=== PATIENT | male | born 1955 | race Caucasian/White ===

== ENCOUNTER 2016-03-23 18:27 | Emergency (ER) | payer OTHER ==
[~2016-03-23] VITALS: Ht 182.9 cm; Wt 95.2 kg
[~2016-03-23 18:27] MED LIST: ALL300 PO; CRDCD120 PO; IBUP-1459 PO; OXYC1TAB3 PO; TELM80TA PO
[2016-03-23 18:37] VITALS: BP 162/85; PULSE 81; TEMP 36.9; O2SAT 94; Ht 182.9 cm; Wt 95.2 kg
[2016-03-23] MEDS ORDERED: PROPARACAINE HCL 0.5% OP SOLN 15 ML BTL ONE (18:44)
[2016-03-23] MEDS ORDERED: PRS5 PO (18:48)
[2016-03-23] MEDS ORDERED: DILT240C48 PO (18:48)
[2016-03-23] MEDS ORDERED: DIPHTHERIA/TETANUS/PERTUSSIS 0.5 ML SYR/VIAL IM. ONE (19:15)
[2016-03-23] MEDS ORDERED: ERYTHROMYCIN OP OINT 5 MG/GM 3.5 GM TUBE OP STA (19:46)
[2016-03-23] MEDS ORDERED: OXYC1TAB3 PO (19:50)
--- NOTE | 2016-03-23 19:50 | EMERGENCY ROOM VISIT NOTE ---
ED Visit Note First contact with patient: 19:03 CHIEF COMPLAINT: Eye pain HISTORY OF PRESENT ILLNESS: This 60-year-old male patient presents to the emergency department ambulatory complaining of pain in the right eye after getting a piece of sawdust in it around 3 PM today. There has been a constant moderate pain and irritation, redness and tearing in the eye. There is a mild blurring of vision at times and light bothers the eye. The vision has not been decreased over all. The patient does not wear contacts. The patient rates the pain as irritating and 10/10. The patient has tried to flush the eye. The patient has not had previous injuries to this eye. His tetanus is not up-to- date REVIEW OF SYSTEMS: A 6 system review of systems was completed with positives and pertinent negatives listed in the HPI. ALLERGIES: Acetaminophen MEDICATIONS: Allopurinol, finasteride, diltiazem PMH: Hypertension, gout SOCIAL HISTORY: The patient does not smoke. 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 PHYSICAL EXAM: Vital Signs: Reviewed Nurse's notes, vital signs stable. Visual acuity 20/25 in the right and 20/15 in the left. GENERAL: This is a 60-year- old male, in no acute distress, but who is uncomfortable from the eye problem. Well-developed well-nourished. EYES: The pupils are equal round and reactive to light and accommodation. EOMs are full and without tenderness. There is discharge of clear tears from the right eye which is injected. There is no foreign body visible under the eyelid even after lid eversion. Funduscopic exam reveals no hemorrhages, papilledema, or other abnormalities. No foreign body was seen embedded in the cornea under slit lamp exam. The cornea was clear and no hyphema was seen. Fluorescein uptake was observed with ultraviolet light and reveals a corneal abrasion at approximately 1:00. EMERGENCY DEPARTMENT COURSE: I examined the patient. Alcaine 2 drops were placed in the patient's right eye. A slit lamp exam was performed as above. Erythromycin ointment was placed in the patient's right eye. He was given a take-home pack of OxyIR as well as a prescription. The patient was discharged home in good condition. DIAGNOSIS: Corneal abrasion of the right eye DISCHARGE INSTRUCTIONS AND TREATMENT: Use erythromycin ointment 1/4 cm ribbon to the lower eyelid every 6 hours for 3-5 days. Use Ibuprofen 600 mg every 6 hrs as needed for moderate pain. Oxy IR 1-2 tablets every 4-6 hrs as needed for worse pain. No driving or alcohol use with Oxy IR. Return to the ED or see your eye doctor in 24-48 hours for a recheck. Return to the ED for increasing pain or changes in vision. Problem List Medical Problems: (1) HTN (hypertension) Status: Chronic Surgical Problems: (1) H/O shoulder surgery Status: Resolved Current/Historical Medications Scheduled Allopurinol (Allopurinol), 150 MG PO QAM Diltiazem Hcl Coated Beads (Cartia Xt), 240 MG PO QAM Finasteride (Finasteride), 5 MG PO DAILY Telmisartan (Micardis), 80 MG PO QAM Scheduled PRN Oxycodone Ir (Roxicodone Ir), 1-2 TAB PO Q4H PRN for Pain Allergies Coded Allergies: Acetaminophen (Verified Adverse Reaction, Unknown, GOUT, 03/23/16) Vital Signs Date Time Temp Pulse Resp B/P Pulse Ox O2 Delivery O2 Flow Rate FiO2 03/23/16 18:37 36.9 81 18 162/85 94 Room Air Medications Administered Medications (Trade) Dose Ordered Sig/Jill Route Start Time Stop Time Status Last Admin Dose Admin Proparacaine HCl (Alcaine 0.5% Oph Soln) 225 drops STK-MED ONCE .ROUTE 03/23/16 18:44 03/23/16 18:45 DC 03/23/16 18:48 225 DROPS Diphtheria/ Pertussis/Tetanus Vacc (Adacel Inj) 0.5 ml ONCE ONCE IM. 03/23/16 19:15 03/23/16 19:16 DC 03/23/16 19:39 0.5 ML Erythromycin (Erythromycin Oph Oint) 1 appln TID STAT OP 03/23/16 19:46 03/23/16 19:48 DC 03/23/16 20:06 1 APPLN Oxycodone HCl (Roxicodone Immediate Rel 5MG Home Pack) 1 homepack UD ONCE PO 03/23/16 20:00 03/23/16 20:01 DC 03/23/16 20:06 1 HOMEPACK Departure Information Impression Primary Impression: Corneal abrasion Dispostion Home / Self-Care Condition GOOD Prescriptions Oxycodone Ir (Roxicodone Ir) 5 Mg Tab 1-2 TAB PO Q4H Y for Pain, #20 TAB For Initial Treatment Prov: Archana Bray PA-C 03/23/16 Referrals Claudy Bui D.O. (PCP) Maikel Figueroa D.O. Patient Instructions ED Eye Injury Corneal Abrasion, My [facility] Additional Instructions Use erythromycin ointment 1/4 cm ribbon to the lower eyelid every 6 hours for 3- 5 days. Use Ibuprofen 600 mg every 6 hrs as needed for moderate pain. Oxy IR 1-2 tablets every 4-6 hrs as needed for worse pain. No driving or alcohol use with Oxy IR. Return to the ED or see your eye doctor in 24-48 hours for a recheck. Return to the ED for increasing pain or changes in vision. Problem Qualifiers Primary Impression: Corneal abrasion Encounter type: initial encounter Laterality: right Qualified Codes: S05.01XA - Injury of conjunctiva and corneal abrasion without foreign body, right eye, initial encounter
[2016-03-23] MEDS ORDERED: OXYCODONE IR HOME PACK PO ONE (20:00)
== END 2016-03-23 20:07 | disposition home or self-care (01) ==
LOC: C.EDB 18:28 → C.EDD 20:07
DX: S05.01XA Injury of conjunctiva and corneal abrasion without foreign body, right eye, initial encounter (principal); X58.XXXA Exposure to other specified factors, initial encounter; Z23 Encounter for immunization

== ENCOUNTER → 2016-03-28 | Outpatient (CLI) | payer OTHER ==
[~2016-03-28] MED LIST changes: -CRDCD120 PO; +DILT240C48 PO; -IBUP-1459 PO; +PRS5 PO
== END | disposition home or self-care (01) ==
LOC: C.LAB 12:04
PROVIDERS: ATTEND Urology
DX: N40.0 Benign prostatic hyperplasia without lower urinary tract symptoms (principal)

== ENCOUNTER → 2016-05-08 | Outpatient (CLI) | payer OTHER ==
--- NOTE | 2016-05-08 17:54 | DIAGNOSTIC IMAGING REPORT ---
CHEST 2 VIEWS ROUTINE CLINICAL HISTORY: COUGH COMPARISON STUDY: 12/12/2014 FINDINGS: The heart is normal in size. There is no failure. There is no lobar consolidation. There are no pleural effusions. There are bibasal interstitial opacities, likely atelectatic, although an inflammatory process cannot be excluded.[ IMPRESSION: 1. Bibasal interstitial opacities 2. No evidence of lobar consolidation. No evidence of failure Electronically signed by: Gustavo Farooq M.D. 05/08/2016 5:52 PM Dictated Date/Time: 05/08/2016 5:51 PM
== END | disposition home or self-care (01) ==
LOC: C.RAD 17:25
PROVIDERS: ATTEND Family Medicine
DX: R05 Cough (principal)

== ENCOUNTER → 2016-05-18 | Outpatient (CLI) | payer OTHER ==
[2016-05-18 12:52] LABS: BASO % 0.3 %; BASO ABS # 0.03 K/uL (0-0.2); COMPLETE YES; EOS % 0.9 %; HEMATOCRIT 44.9 % (42-52); IG% 0.5 %; LYMPH % 16.1 %; LYMPH ABS # 1.56 K/uL (1.2-3.4); MEAN CELL VOLUME 93.5 fL (80-100); MEAN CORPUSCULAR HEMOGLOBIN 32.9 pg (25-34); MEAN CORPUSCULAR HGB CONC 35.2 g/dl (32-36); MEAN PLATELET VOLUME 11.6 fL (7.4-10.4); MONO % 6.8 %; NEUT % 75.4 %; PLATELET COUNT 218 K/uL (130-400); WHITE BLOOD COUNT 9.68 K/uL (4.8-10.8)
[2016-05-18 13:10] LABS: BLOOD UREA NITROGEN 14 mg/dl (7-18); BUN/CREATININE RATIO 11.3 (10-20); CALCIUM 9.9 mg/dl (8.5-10.1); CARBON DIOXIDE 28 mmol/L (21-32); CHLORIDE 103 mmol/L (98-107); GLUCOSE 114 mg/dl (70-99); POTASSIUM 4.2 mmol/L (3.5-5.1); SODIUM 139 mmol/L (136-145)
[2016-05-22 01:36] LABS: BORDETELLA PERTUSSIS SOURCE Nasal Swab
== END | disposition home or self-care (01) ==
LOC: C.LAB 11:23
PROVIDERS: ATTEND Physician Assistant
DX: R05 Cough (principal); R06.02 Shortness of breath

== ENCOUNTER → 2016-05-25 | Outpatient (CLI) | payer OTHER ==
[~2016-05-25] MED LIST changes: +OPTIRAY 320 IV PRN
--- NOTE | 2016-05-25 15:17 | DIAGNOSTIC IMAGING REPORT ---
CHEST CT WITH CONTRAST CT DOSE: 518.38 mGy.cm HISTORY: Cough. Short of breath. TECHNIQUE: Multiaxial CT images of the chest were performed following the intravenous administration of contrast. COMPARISON: Chest 05/08/2016. FINDINGS: No pneumothorax. No pleural effusions. The central airways are patent. A 5 mm indeterminate pulmonary nodule within the right lower lobe in image 198. A few scattered patchy groundglass and linear opacity seen within the lung bases. This nonspecific but favor dependent change/atelectasis. Small scarlike densities within the medial right lower lobe adjacent to the thoracic spine osteophytes. No acute fractures within the visualized osseous structures. Small heterogeneous nodules measuring up to 12 mm within the superior mediastinum immediately inferior to the thyroid gland. These favor thyroid tissue/nodules. Otherwise, no mediastinal or hilar lymphadenopathy. Normal caliber thoracic aorta. Hepatic steatosis. The spleen and adrenal glands are unremarkable. The main pulmonary arteries are patent. The heart is normal in size. IMPRESSION: 1. A few scattered patchy groundglass and linear opacity seen within the lung bases. This favors mild dependent change/atelectasis. A low-grade pneumonitis could also have a similar appearance but is considered less likely. 2. A 5 mm indeterminate pulmonary nodule within the right lower lobe. Please refer to the chart below for recommended follow-up. 3. Small heterogeneous nodules measuring up to 12 mm within the superior mediastinum. These favor residual thyroid tissue/nodules. 4. Hepatic steatosis. Please refer to below summary of Fleischner criteria recommendations for follow-up of incidental CT nodules (Deya Cortes, Guidelines for management of small pulmonary nodules detected on CT scans: A statement from the Fleischner Society, Radiology 237: [phone].) SOLID NODULES Solitary nodule size: <6 mm * low risk patients: no follow-up needed * high risk patients: optional CT at 12 months Solitary nodule size: 6-8 mm * low risk patients: follow-up at 6-12 months, then consider further follow-up at 18-24 months * high risk patients: initial follow-up CT at 6-12 months and then at 18-24 months if no change Solitary nodule size: >8 mm * either low or high risk patients - consider follow-up CT at 3 months, and/or CT-PET, and/or biopsy Multiple nodules size: <6 mm * low risk patients: no routine follow-up * high risk patients: optional CT at 12 months Multiple nodules size: 6-8 mm * low risk patients: follow-up at 3-6 months, then consider further follow-up at 18-24 months * high risk patients: follow-up at 3-6 months, then at 18-24 months if no change Multiple nodules size: >8 mm * low risk patients: follow-up at 3-6 months, then consider further follow-up at 18-24 months * high risk patients: follow-up at 3-6 months, then at 18-24 months if no change Note: newly detected indeterminate nodule in persons 35 years of age or older. * Low risk patients: minimal or absent history of smoking and/or other known risk factors * high risk patients: history of smoking or of other known risk factors (e.g. first degree relative with lung cancer, or exposure to asbestos, radon, uranium) * if a nodule up to 8 mm is partly solid or is ground glass further follow-up is required after 24 months to exclude possible slow growing adenocarcinoma (LAURA) SUBSOLID NODULES Solitary pure ground-glass nodule * nodule size <6 mm - no CT follow-up required * nodule size >=6 mm - follow-up CT at 6-12 months, then every 2 years until 5 years Solitary part-solid nodule * nodule size <6 mm - no CT follow-up required * nodule size >=6 mm - follow-up CT at 3-6 months. If unchanged, and solid component remains <6 mm, then annual follow-up for 5 years Multiple subsolid nodules * nodule size <6 mm - follow-up CT at 3-6 months, consider further follow-up at 2 and 4 years if stable * nodule size >=6 mm - follow-up CT at 3-6 months, subsequent management based on the most suspicious nodule(s) Electronically signed by: Delon Slade M.D. 05/25/2016 3:14 PM Dictated Date/Time: 05/25/2016 3:06 PM
--- NOTE | 2016-05-26 06:56 | PULMONARY FUNCTION TEST ---
SPIROMETRY: Spirometry suggests mild restrictive ventilatory dysfunction with an FVC of 74% predicted. LUNG VOLUMES: Mildly reduced lung volumes with a total lung capacity of 73%. DIFFUSION CAPACITY: Diffusion capacity within normal limits.
== END | disposition home or self-care (01) ==
LOC: C.RC 13:23
PROVIDERS: ATTEND Physician Assistant
DX: R06.02 Shortness of breath (principal); R05 Cough

== ENCOUNTER → 2016-06-06 | Outpatient (CLI) | payer OTHER ==
[~2016-06-06] MED LIST changes: -OPTIRAY 320 IV PRN
[2016-06-06 17:11] LABS: BASO % 0.4 %; BASO ABS # 0.03 K/uL (0-0.2); COMPLETE YES; EOS % 1.3 %; HEMATOCRIT 43.6 % (42-52); IG% 0.3 %; LYMPH % 25.8 %; LYMPH ABS # 1.95 K/uL (1.2-3.4); MEAN CELL VOLUME 96.2 fL (80-100); MEAN CORPUSCULAR HEMOGLOBIN 33.3 pg (25-34); MEAN CORPUSCULAR HGB CONC 34.6 g/dl (32-36); MEAN PLATELET VOLUME 11.3 fL (7.4-10.4); MONO % 8.5 %; NEUT % 63.7 %; PLATELET COUNT 196 K/uL (130-400); RED BLOOD COUNT 4.53 M/uL (4.7-6.1); WHITE BLOOD COUNT 7.55 K/uL (4.8-10.8)
[2016-06-06 17:20] LABS: PARTIAL THROMBOPLASTIN RATIO 1.2; PROTHROMBIN TIME (PATIENT) 11.2 SECONDS (9.0-12.0)
[2016-06-06 17:39] LABS: BLOOD UREA NITROGEN 14 mg/dl (7-18); CALCIUM 9.6 mg/dl (8.5-10.1); CARBON DIOXIDE 29 mmol/L (21-32); CHLORIDE 104 mmol/L (98-107); GLUCOSE 93 mg/dl (70-99); POTASSIUM 4.1 mmol/L (3.5-5.1); SODIUM 140 mmol/L (136-145)
== END | disposition home or self-care (01) ==
LOC: C.LAB 16:27
PROVIDERS: ATTEND Physician Assistant
DX: R06.02 Shortness of breath (principal)

== ENCOUNTER → 2016-06-16 | Outpatient (CLI) | payer OTHER ==
[~2016-06-16] MED LIST changes: +PERFLUTREN LIPID MICROSPHERE (DEFINITY) IV ONE
--- NOTE | 2016-06-16 13:45 | EXERCISE STRESS ECHO ---
*NOTICE TO RECEIVING REPUBLICAN AGENCY This information is strictly Confidential and protected under [place] law. [place] law prohibits you from making any further disclosure of this information unless further disclosure is expressly permitted by the written consent of the person to whom it pertains or is authorized by law. A general authorization for the release of medical or other information is not sufficient for this purpose. Hospital accepts no responsibility if the information is made available to any other person, INCLUDING THE PATIENT. Interpretation Summary * Name: PRESLEY FOSTER Study Date: 06/16/2016 10:16 AM BP: 147/76 mmHg * Patient Location: [facility] HR: 67 * : 1955 (M/d/yyyy) Gender: Male Height: 72 in * Age: 60 yrs Ethnicity: CA Weight: 200 lb * Ordering Physician: Lindsey Penny * Referring Physician: Lindsey Penny PA-C * Performed By: Aury Johnson RDCS * * Reason For Study: Hypertension, chest tightness, dyspnea * BSA: 2.1 m2 * -- Conclusions -- * Left ventricular systolic function is normal. * Grade I diastolic dysfunction, (abnormal relaxation pattern). * Right ventricular systolic pressure is normal. * Diagnostic exercise echocardiogram with symptoms or evidence of ischemia on echocardiographic imaging. * Hypertensive BP response to exercise. Procedure Details * ECHOEX, CPT #00427 * ECHO DOPPLER, CPT #[id number] * ECHO COLOR FLOW, CPT #[id number] * A contrast injection of Definity was performed to improve assessment of LV function. * Contrast was injected into an intravenous site in the left arm. * One vial of Definity ultrasound contrast was diluted in normal saline to a total volume of 10 ml. A total of '4' ml of solution was administered during imaging. * Lot # [id number] of Definity utilized for procedure. * Expiration date JUN 06. * The attending nurse who injected the contrast agent was Cara Fernandes RN. Left Ventricular Findings with Stress * Diagnostic exercise echocardiogram with symptoms or evidence of ischemia on echocardiographic imaging. Hypertensive BP response to exercise. Left Ventricle * The left ventricle is normal in size. * There is normal left ventricular wall thickness. * Ejection Fraction = 60-65%. * Left ventricular systolic function is normal. * Grade I diastolic dysfunction, (abnormal relaxation pattern). * The left ventricular wall motion is normal. Right Ventricle * The right ventricle is normal in size and function. Atria * The left atrial size is normal. * Right atrial size is normal. Mitral Valve * The mitral valve is grossly normal. * There is trace mitral regurgitation. Tricuspid Valve * The tricuspid valve is not well visualized, but is grossly normal. * There is mild tricuspid regurgitation. * Right ventricular systolic pressure is normal. Aortic Valve * The aortic valve is normal in structure and function. * No hemodynamically significant valvular aortic stenosis. * There is no significant aortic regurgitation. Pericardium * There is no pericardial effusion. Stress Parameters * Normal baseline electrocardiogram. * There was a maximum 1mm ST segment depression. * The stress portion of this study was personally supervised by the undersigned interpreting physician. * Rest heart rate was '67' BPM. * Rest blood pressure was '147/76' * Maximum heart rate achieved was 150 bpm. * Maximum heart rate was 93 % of maximum age-predicted heart rate. * Maximum blood pressure was '215/67' * Total exercise time was '8:06' * Maximum exercise MET level achieved was '10.10' METS * Maximum treadmill speed was '3.40' miles per hour. * Maximum treadmill elevation was '14.00'% grade. * Exercise was terminated due to 'achieving target heart rate' Left Ventricular Findings with Stress * The patient developed 1mm of flat/upsloping ST depressiojn at peak heart rate whcih resolved 1-2 minutes in recovery Normal baseline echocardiogram with normal augmentation and no inducible wall motion abnormalities. No symptoms reported. Hypertensive BP response to exercise Lehman treadmill score: 3 (moderate risk) MMode 2D Measurements and Calculations IVSd 1.0 cm LVIDd 4.1 cm LVIDs 2.7 cm LVPWd 0.93 cm IVS/LVPW 1.1 FS 34.7 % EDV(Teich) 74.0 ml ESV(Teich) 26.4 ml EF(Teich) 64.4 % EDV(cubed) 68.7 ml ESV(cubed) 19.1 ml EF(cubed) 72.2 % LV mass(C)d 127.9 grams LV mass(C)dI 60.1 grams/m\S\2 SV(Teich) 47.7 ml SI(Teich) 22.4 ml/m\S\2 SV(cubed) 49.6 ml SI(cubed) 23.3 ml/m\S\2 Ao root diam 3.5 cm Ao root area 9.6 cm\S\2 ACS 1.7 cm LA dimension 3.3 cm asc Aorta Diam 3.1 cm LA/Ao 0.93 LVOT diam 2.0 cm LVOT area 3.3 cm\S\2 LVAd ap4 28.6 cm\S\2 LVLd ap4 8.7 cm EDV(MOD-sp4) 75.6 ml EDV(sp4-el) 80.0 ml LVAs ap4 15.3 cm\S\2 LVLs ap4 6.6 cm ESV(MOD-sp4) 31.4 ml ESV(sp4-el) 30.0 ml EF(MOD-sp4) 58.5 % EF(sp4-el) 62.4 % LVAd ap2 26.4 cm\S\2 LVLd ap2 7.6 cm EDV(MOD-sp2) 75.4 ml EDV(sp2-el) 77.5 ml LVAs ap2 14.2 cm\S\2 LVLs ap2 6.0 cm ESV(MOD-sp2) 29.3 ml ESV(sp2-el) 28.6 ml EF(MOD-sp2) 61.1 % EF(sp2-el) 63.1 % LVLd %diff -13.65 % EDV(MOD-bp) 81.1 ml LVLs %diff -10.44 % ESV(MOD-bp) 31.8 ml EF(MOD-bp) 60.8 % SV(MOD-sp4) 44.2 ml SI(MOD-sp4) 20.7 ml/m\S\2 SV(MOD-sp2) 46.1 ml SI(MOD-sp2) 21.6 ml/m\S\2 SV(MOD-bp) 49.3 ml SI(MOD-bp) 23.2 ml/m\S\2 SV(sp4-el) 49.9 ml SI(sp4-el) 23.4 ml/m\S\2 SV(sp2-el) 48.9 ml SI(sp2-el) 22.9 ml/m\S\2 Doppler Measurements and Calculations MV E max arden 79.5 cm/sec MV A max arden 69.4 cm/sec MV E/A 1.1 MV dec time 0.22 sec Ao V2 max 124.9 cm/sec Ao max PG 6.2 mmHg Ao max PG (full) 0.91 mmHg TARA(V,A) 3.0 cm\S\2 TARA(V,D) 3.0 cm\S\2 LV V1 max PG 5.3 mmHg LV V1 max 115.4 cm/sec PA V2 max 124.9 cm/sec PA max PG 6.2 mmHg PA acc slope 931.2 cm/sec\S\2 PA acc time 0.09 sec TR max arden 219.9 cm/sec PA pr(Accel) 39.4 mmHg
--- NOTE | 2016-06-23 11:51 | EXERCISE STRESS ECHO ---
*NOTICE TO RECEIVING DEMOCRAT AGENCY This information is strictly Confidential and protected under [place] law. [place] law prohibits you from making any further disclosure of this information unless further disclosure is expressly permitted by the written consent of the person to whom it pertains or is authorized by law. A general authorization for the release of medical or other information is not sufficient for this purpose. Hospital accepts no responsibility if the information is made available to any other person, INCLUDING THE PATIENT. Interpretation Summary * Name: PRESLEY FOSTER Study Date: 06/16/2016 10:16 AM BP: 147/76 mmHg * Patient Location: [facility] ([facility] HR: 67 * : 1955 (M/d/yyyy) Gender: Male Height: 72 in * Age: 60 yrs Ethnicity: [place] Weight: 200 lb * Ordering Physician: Lindsey Penny * Referring Physician: Lindsey Penny PA-C * Performed By: Aury Johnson RDCS * * Reason For Study: Hypertension, chest tightness, dyspnea * BSA: 2.1 m2 * -- Conclusions -- * Left ventricular systolic function is normal. * Grade I diastolic dysfunction, (abnormal relaxation pattern). * Right ventricular systolic pressure is normal. * Diagnostic exercise echocardiogram without symptoms or evidence of ischemia on echocardiographic imaging. * Hypertensive BP response to exercise. Procedure Details * ECHOEX, CPT #[id number] * ECHO DOPPLER, CPT #[id number] * ECHO COLOR FLOW, CPT #[id number] * A contrast injection of Definity was performed to improve assessment of LV function. * Contrast was injected into an intravenous site in the left arm. * One vial of Definity ultrasound contrast was diluted in normal saline to a total volume of 10 ml. A total of '4' ml of solution was administered during imaging. * Lot # [id number] of Definity utilized for procedure. * Expiration date JUN 06. * The attending nurse who injected the contrast agent was Cara Fernandes RN. Left Ventricular Findings with Stress * Diagnostic exercise echocardiogram with symptoms or evidence of ischemia on echocardiographic imaging. Hypertensive BP response to exercise. Left Ventricle * The left ventricle is normal in size. * There is normal left ventricular wall thickness. * Ejection Fraction = 60-65%. * Left ventricular systolic function is normal. * Grade I diastolic dysfunction, (abnormal relaxation pattern). * The left ventricular wall motion is normal. Right Ventricle * The right ventricle is normal in size and function. Atria * The left atrial size is normal. * Right atrial size is normal. Mitral Valve * The mitral valve is grossly normal. * There is trace mitral regurgitation. Tricuspid Valve * The tricuspid valve is not well visualized, but is grossly normal. * There is mild tricuspid regurgitation. * Right ventricular systolic pressure is normal. Aortic Valve * The aortic valve is normal in structure and function. * No hemodynamically significant valvular aortic stenosis. * There is no significant aortic regurgitation. Pericardium * There is no pericardial effusion. Stress Parameters * Normal baseline electrocardiogram. * There was a maximum 1mm ST segment depression. * The stress portion of this study was personally supervised by the undersigned interpreting physician. * Rest heart rate was '67' BPM. * Rest blood pressure was '147/76' * Maximum heart rate achieved was 150 bpm. * Maximum heart rate was 93 % of maximum age-predicted heart rate. * Maximum blood pressure was '215/67' * Total exercise time was '8:06' * Maximum exercise MET level achieved was '10.10' METS * Maximum treadmill speed was '3.40' miles per hour. * Maximum treadmill elevation was '14.00'% grade. * Exercise was terminated due to 'achieving target heart rate' Left Ventricular Findings with Stress * The patient developed 1mm of flat/upsloping ST depressiojn at peak heart rate whcih resolved 1-2 minutes in recovery Normal baseline echocardiogram with normal augmentation and no inducible wall motion abnormalities. No symptoms reported. Hypertensive BP response to exercise Lehman treadmill score: 3 (moderate risk) MMode 2D Measurements and Calculations IVSd 1.0 cm LVIDd 4.1 cm LVIDs 2.7 cm LVPWd 0.93 cm IVS/LVPW 1.1 FS 34.7 % EDV(Teich) 74.0 ml ESV(Teich) 26.4 ml EF(Teich) 64.4 % EDV(cubed) 68.7 ml ESV(cubed) 19.1 ml EF(cubed) 72.2 % LV mass(C)d 127.9 grams LV mass(C)dI 60.1 grams/m\S\2 SV(Teich) 47.7 ml SI(Teich) 22.4 ml/m\S\2 SV(cubed) 49.6 ml SI(cubed) 23.3 ml/m\S\2 Ao root diam 3.5 cm Ao root area 9.6 cm\S\2 ACS 1.7 cm LA dimension 3.3 cm asc Aorta Diam 3.1 cm LA/Ao 0.93 LVOT diam 2.0 cm LVOT area 3.3 cm\S\2 LVAd ap4 28.6 cm\S\2 LVLd ap4 8.7 cm EDV(MOD-sp4) 75.6 ml EDV(sp4-el) 80.0 ml LVAs ap4 15.3 cm\S\2 LVLs ap4 6.6 cm ESV(MOD-sp4) 31.4 ml ESV(sp4-el) 30.0 ml EF(MOD-sp4) 58.5 % EF(sp4-el) 62.4 % LVAd ap2 26.4 cm\S\2 LVLd ap2 7.6 cm EDV(MOD-sp2) 75.4 ml EDV(sp2-el) 77.5 ml LVAs ap2 14.2 cm\S\2 LVLs ap2 6.0 cm ESV(MOD-sp2) 29.3 ml ESV(sp2-el) 28.6 ml EF(MOD-sp2) 61.1 % EF(sp2-el) 63.1 % LVLd %diff -13.65 % EDV(MOD-bp) 81.1 ml LVLs %diff -10.44 % ESV(MOD-bp) 31.8 ml EF(MOD-bp) 60.8 % SV(MOD-sp4) 44.2 ml SI(MOD-sp4) 20.7 ml/m\S\2 SV(MOD-sp2) 46.1 ml SI(MOD-sp2) 21.6 ml/m\S\2 SV(MOD-bp) 49.3 ml SI(MOD-bp) 23.2 ml/m\S\2 SV(sp4-el) 49.9 ml SI(sp4-el) 23.4 ml/m\S\2 SV(sp2-el) 48.9 ml SI(sp2-el) 22.9 ml/m\S\2 Doppler Measurements and Calculations MV E max arden 79.5 cm/sec MV A max arden 69.4 cm/sec MV E/A 1.1 MV dec time 0.22 sec Ao V2 max 124.9 cm/sec Ao max PG 6.2 mmHg Ao max PG (full) 0.91 mmHg TARA(V,A) 3.0 cm\S\2 TARA(V,D) 3.0 cm\S\2 LV V1 max PG 5.3 mmHg LV V1 max 115.4 cm/sec PA V2 max 124.9 cm/sec PA max PG 6.2 mmHg PA acc slope 931.2 cm/sec\S\2 PA acc time 0.09 sec TR max arden 219.9 cm/sec PA pr(Accel) 39.4 mmHg
== END | disposition home or self-care (01) ==
LOC: C.CPL 09:57
PROVIDERS: ATTEND Physician Assistant
DX: I10 Essential (primary) hypertension (principal); R06.02 Shortness of breath; R07.89 Other chest pain

== ENCOUNTER 2016-06-20 07:33 | Day surgery (SDC) | payer OTHER ==
[2016-06-20] VITALS (13 sets, daily range): BP systolic 114–142; BP diastolic 71–87; PULSE 52–81; TEMP 36.5; O2SAT 94–99; Ht 182.9 cm; Wt 90.8 kg
[~2016-06-20] VITALS: Ht 182.9 cm; Wt 90.8 kg
--- NOTE | 2016-06-20 05:53 | History and Physical ---
History & Physical Date June 20, 2016. Chief Complaint Chronic Productive Cough History of Present Illness The patient is a 60 year old male with complaints of chronic productive cough: 60-year-old male presents the office to follow-up PFTs and CT for h/o cough and dyspnea s/p fall. Prior records reviewed. PMHx includes: GERD, hyperlipidemia, seasonal allergies, GERD, gout, hypertension, BPH. No significant tobacco use, + h/o second hand exposure. He is intolerant to steroids stating it makes his "heart race". Patient initially seen in the office 04/2016 with symptoms of dyspnea and cough beginning 1-3 after sustaining a fall on ice late 01/2016 sustaining left sided rib fractures (acute dx and treatment in the ER). While his pain resolved, dyspnea, intermittent wheeze and cough developed and progressed - Cough became severe -paroxysmal and intermittently productive of green/yellow mucus. He completed a course of amoxicillin and cefuroxime (04/2016) without improvement. Chest x-ray completed 05/08/2016 per report described bilateral interstitial opacities/nonspecific. 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 Last visit patient was prescribed Qvar 80: 1 puff BID with adherence to PPI. PFTs completed 05/25/[address] Barth (no raw data at this time) : suggestive of mild restrict ventilatory dysfunction with FVC: 74% predicted, mildly reduced lung volumes (T%) an preserved DLCO. CT 05/25/16: 5mm RLL nodule, few scattered patchy ground glass and linear opacities in the lung favoring mild dependent changes/atelectasis. A "low-grade pneumonitis" is less likely. Hepatic steatosis. 02/13/14 Left Shoulder Joint Synovial Fluid Actimomyces Meyeri Propionibacterium Acnes 04/02/14 C-diff positive Cardiac Stress Echo---Date: 06/16/2016 * Left ventricular systolic function is normal. * Grade I diastolic dysfunction, (abnormal relaxation pattern). * Right ventricular systolic pressure is normal. * Diagnostic exercise echocardiogram with symptoms or evidence of ischemia on echocardiographic imaging. * Hypertensive BP response to exercise. * Lehman treadmill score: 3 (moderate risk) Past Medical/Surgical History Medical Problems: (1) HTN (hypertension) Surgical Problems: (1) H/O shoulder surgery Additional History Hepatic Disease: Yes (CANO) Endocrine Disorder: No Kidney Disease: No Hypertension: Yes Heart Disease: No Bleeding Tendencies: No Infectious Diseases: 02/13/14 Left Shoulder Joint Synovial Fluid Allergies Coded Allergies: Acetaminophen (Verified Adverse Reaction, Unknown, GOUT, 03/23/16) Home Medications Scheduled Allopurinol (Allopurinol), 150 MG PO QAM Diltiazem Hcl Coated Beads (Cartia Xt), 240 MG PO QAM Finasteride (Finasteride), 5 MG PO DAILY Telmisartan (Micardis), 80 MG PO QAM Scheduled PRN Oxycodone Ir (Roxicodone Ir), 1-2 TAB PO Q4H PRN for Pain Physical Examination Skin: warm/dry, no rash Eyes: normal inspection, EOMI, sclerae normal ENT: normal ENT inspection, pharynx normal Head: normocephalic, atraumatic Neck: supple, no adenopathy, trachea midline Respiratory/Chest: + pertinent finding (Non-labored respirations. Fine bibasilar crackles Left > Right. No wheeze. No clubbing or cyanosis. ) Abdomen / GI: normal bowel sounds, non tender Back: normal inspection Extremities: normal inspection, normal range of motion Neurologic/Psych: no motor/sensory deficits, alert, normal reflexes, oriented x 3 Diagnosis Chronic Productive Cough ASA Classification: ASA Class II Plan of Treatment Bronchoscopy with BAL and Conscious sedation
[~2016-06-20 07:33] MED LIST changes: -PERFLUTREN LIPID MICROSPHERE (DEFINITY) IV ONE
[2016-06-20] MEDS ORDERED: FENTANYL CITRATE 100 MCG 2 ML CARP IV ONE (07:34)
[2016-06-20] MEDS ORDERED: MIDAZOLAM HCL 5 MG/ML 2ML VIAL IV ONE (07:34)
--- NOTE | 2016-06-20 09:27 | Procedure Note ---
Pre-Mod Sedation Assessment General Date of Moderate Sedation: June 20, 2016. Vital Signs: Vital Signs Past 12 Hours Date Time Temp Pulse Resp B/P Pulse Ox O2 Delivery O2 Flow Rate FiO2 06/20/16 08:21 36.5 64 16 140/80 96 Room Air Review Cardiovascular: regular rate, rhythm, no edema, no gallop, no JVD, no murmur, normal peripheral pulses Abdomen: normal bowel sounds, non tender, soft, no organomegaly, no pulsatile mass, normal rectal exam, occult blood negative Lungs: chest non-tender, lungs clear, normal breath sounds, no respiratory distress, no accessory muscle use Airway Class: II Pre-Sedation Airway Assessment Oral Cavity: WNL Able to Visualize Vocal Cords: Yes Short Thick Neck: No Hx of Sleep Apnea: No Smoking Status: Former Smoker Procedure Planning Contraindications-for Mod Sed: None Yes Notes The planned sedation has been discussed with the patient and consent obtained. I have identified the patient, determined the appropriateness of sedation and have assessed the patient immediately prior to the procedure. All medicine(s) and interventions are by my order.
--- NOTE | 2016-06-20 09:28 | History & Physical Bridge Note ---
H&P Re-Evaluation Bridge Note: I have examined the patient, reviewed the History & Physical and in the interval since the performance of the History & Physical I have noted the following changes of clinical significance: No changes noted
[2016-06-20] MEDS ORDERED: NURSING VERBAL MED ORDER ONE (10:15)
--- NOTE | 2016-06-20 10:21 | Bronchoscopy Procedure Note ---
Bronchoscopy Procedure Note Procedure: Bronchoscopy, conscious sedation, BAL SHILA Consent: Obtained through the patient placed into the chart Preprocedural diagnosis: Chronic Cough Postprocedural diagnosis: Chronic Cough with Right vocal cord dysfunction Start time: 944 End time: 1004 Total time: 20min Analgesia: 2% liquid lidocaine: Via nebulizer 4% gel lidocaine: Via right naris 2% liquid lidocaine: Via bronchoscopy Sedation: Versed IV: 4mg Fentanyl IV: 100 g Procedure: The Olympus video bronchoscope was used for this procedure and passed down through the right naris Right naris/posterior naris/posterior oropharynx: Anatomically within normal limits Glottis: Anatomically within normal limits Vocal cords: poor abduction and adduction noted Subglottis/trachea/Magui: Anatomically within normal limits Right bronchial tree: Right mainstem bronchus: Anatomically within normal limits Right upper lobe: Anatomically within normal limits Bronchus intermedius: Anatomically within normal limits Right middle lobe: Anatomically within normal limits Right lower lobe: Anatomically within normal limits Findings: No significant findings noted Left bronchial tree: Left mainstem bronchus: Anatomically within normal limits Left upper lobe: Anatomically within normal limits Lingula: Anatomically within normal limits Left lower lobe: Anatomically within normal limits Findings: diffuse mucus secretions noted in the SHILA Bronchial alveolar lavage: 120cc performed of the SHILA with 80cc returned Complications: None Follow-up: Puja Penny at the [facility]
--- NOTE | 2016-06-20 10:21 | Procedure Note ---
Post-Moderate Sedation Plan General Date of Moderate Sedation June 20, 2016. Vital Signs: Vital Signs Past 12 Hours Date Time Temp Pulse Resp B/P Pulse Ox O2 Delivery O2 Flow Rate FiO2 06/20/16 10:10 52 19 125/79 99 Nasal Cannula 5.0 06/20/16 10:05 59 19 126/82 99 Nasal Cannula 5.0 06/20/16 10:00 57 18 136/87 99 Nasal Cannula 5.0 06/20/16 09:55 59 14 142/74 99 Nasal Cannula 5.0 06/20/16 09:50 73 14 121/74 99 Nasal Cannula 5.0 06/20/16 09:45 81 12 128/77 99 Nasal Cannula 5.0 06/20/16 09:40 141/ 99 Room Air 5.0 06/20/16 08:21 36.5 64 16 140/80 96 Room Air Review - Discharge Plan Post Moderate Sedation Plan: On clinical assessment, the patient appears to have tolerated the conscious sedation without complications. Patient is recovering as anticipated. Patient will continue to be monitored by nursing and may be discharged when conscious sedation discharge criteria are met.
--- NOTE | 2016-06-20 10:25 | Discharge Instructions ---
Discharge Instructions Date of Service June 20, 2016. Admission Reason for Admission: Cough, Shortness Of Breath Discharge Discharge Diagnosis / Problem: Chronic cough and right vocal cord dysfunction Discharge Goals Goal(s): Diagnostic testing Activity Recommendations Activity Limitations: resume your previous activity . Instructions / Follow-Up Instructions / Follow-Up Follow-up in the [facility] with provider Lindsey Penny Current Hospital Diet Patient's current hospital diet: Discharge Diet Recommended Diet: Regular Diet Procedures Procedures Performed: Bronchoscopy, Consicous Sedation, Bronchial Lavage of the left upper lobe Pending Studies Studies pending at discharge: yes List of pending studies: Cytology, microbiology anf fungal analysis of the left upper lobe Medical Emergencies . Who to Call and When: Medical Emergencies: If at any time you feel your situation is an emergency, please call 911 immediately. . Non-Emergent Contact Non-Emergency issues call your: Health Worker Call Non-Emergent contact if: temperature is above 101.5 . . "Provider Documentation" section prepared by Dru Barth. . VTE Core Measure Inpt VTE Proph given/why not?: Treatment not indicated
[2016-06-20] MEDS ORDERED: FENTANYL CITRATE INJ 50 MCG/1 ML 2 ML VIAL IV SCH (11:00)
[2016-06-20] MEDS ORDERED: MIDAZOLAM HCL 5 MG/ML 1 ML VIAL IV SCH (11:00)
[2016-07-14 08:28] LABS: HERPES SIMPLEX CULT SOURCE OTHER-BAL LUL; HERPES SIMPLEX VIRUS CULT NOT ISOLATED (NOT ISOLATED)
== END 2016-06-20 12:20 | disposition home or self-care (01) ==
LOC: C.ACU 07:33
PROVIDERS: ATTEND Internal Medicine Critical Care Medicine
DX: R05 Cough (principal); R06.02 Shortness of breath; J38.7 Other diseases of larynx; K21.9 Gastro-esophageal reflux disease without esophagitis; E78.5 Hyperlipidemia, unspecified; I10 Essential (primary) hypertension; N40.0 Benign prostatic hyperplasia without lower urinary tract symptoms; K75.81 Nonalcoholic steatohepatitis (NASH); M10.9 Gout, unspecified

== ENCOUNTER → 2016-09-02 | Outpatient (CLI) | payer OTHER ==
[2016-09-02 08:09] LABS: BASO % 0.6 %; BASO ABS # 0.03 K/uL (0-0.2); COMPLETE YES; EOS % 7.4 %; HEMATOCRIT 44.9 % (42-52); IG% 0.2 %; LYMPH % 33.8 %; LYMPH ABS # 1.74 K/uL (1.2-3.4); MEAN CELL VOLUME 95.1 fL (80-100); MEAN CORPUSCULAR HEMOGLOBIN 33.1 pg (25-34); MEAN CORPUSCULAR HGB CONC 34.7 g/dl (32-36); MEAN PLATELET VOLUME 10.6 fL (7.4-10.4); MONO % 8.2 %; NEUT % 49.8 %; PLATELET COUNT 195 K/uL (130-400); RED BLOOD COUNT 4.72 M/uL (4.7-6.1); WHITE BLOOD COUNT 5.15 K/uL (4.8-10.8)
[2016-09-02 08:43] LABS: ALT/SGPT 179 U/L (12-78); BLOOD UREA NITROGEN 14 mg/dl (7-18); BUN/CREATININE RATIO 11.8 (10-20); CALCIUM 9.5 mg/dl (8.5-10.1); CARBON DIOXIDE 28 mmol/L (21-32); CHLORIDE 107 mmol/L (98-107); CHOLESTEROL 214 mg/dl (0-200); GLUCOSE 126 mg/dl (70-99); POTASSIUM 4.4 mmol/L (3.5-5.1); SODIUM 140 mmol/L (136-145); TRIGLYCERIDES 116 mg/dl (0-150); URIC ACID 5.8 mg/dl (2.6-7.2); VERY LOW DENSITY LIPOPROT CALC 23 mg/dl
[2016-09-02 08:46] LABS: AST/SGOT 98 U/L (15-37); CHOLESTEROL/HDL RATIO 5.9; HDL CHOLESTEROL 36 mg/dl
[2016-09-02 09:00] LABS: ESTIMATED AVERAGE GLUCOSE 137 mg/dl; HA1C FLAG Normal (Normal)
== END | disposition home or self-care (01) ==
LOC: C.LAB 07:30
PROVIDERS: ATTEND Family Medicine
DX: I10 Essential (primary) hypertension (principal); E78.5 Hyperlipidemia, unspecified; K76.9 Liver disease, unspecified; R73.01 Impaired fasting glucose

== ENCOUNTER → 2016-12-02 | Outpatient (CLI) | payer OTHER ==
[~2016-12-02] MED LIST changes: -OXYC1TAB3 PO
[2016-12-02 08:17] LABS: GLUCOSE 125 mg/dl (70-99)
[2016-12-02 08:20] LABS: ALT/SGPT 55 U/L (12-78); AST/SGOT 33 U/L (15-37)
== END | disposition home or self-care (01) ==
LOC: C.LAB 07:00
PROVIDERS: ATTEND Family Medicine
DX: R73.01 Impaired fasting glucose (principal); K76.9 Liver disease, unspecified

== ENCOUNTER → 2017-03-19 | Outpatient (CLI) | payer OTHER ==
--- NOTE | 2017-03-19 14:05 | DIAGNOSTIC IMAGING REPORT ---
CHEST 2 VIEWS ROUTINE CLINICAL HISTORY: 61 years-old Male presenting with COUGH. TECHNIQUE: PA and lateral views of the chest were obtained. COMPARISON: Chest CT from 05/25/2016 and chest x-ray from 05/08/2016. FINDINGS: Atherosclerosis of the aortic arch. Cardiac silhouette normal in size. Lungs and pleural spaces clear. Degenerative changes of the thoracic spine. Upper abdomen normal. IMPRESSION: 1. No acute cardiopulmonary disease. Electronically signed by: Juan Horta M.D. 03/19/2017 2:04 PM Dictated Date/Time: 03/19/2017 2:01 PM
== END | disposition home or self-care (01) ==
LOC: C.RAD 13:32
PROVIDERS: ATTEND Family Medicine
DX: R05 Cough (principal)

== ENCOUNTER → 2017-04-07 | Outpatient (CLI) | payer OTHER ==
[2017-04-07 08:18] LABS: ALT/SGPT 55 U/L (12-78); AST/SGOT 30 U/L (15-37); BLOOD UREA NITROGEN 17 mg/dl (7-18); CALCIUM 9.7 mg/dl (8.5-10.1); CARBON DIOXIDE 29 mmol/L (21-32); CHOLESTEROL 169 mg/dl (0-200); CREATININE 1.23 mg/dl (0.60-1.40); GLUCOSE 111 mg/dl (70-99); POTASSIUM 4.3 mmol/L (3.5-5.1); SODIUM 139 mmol/L (136-145)
[2017-04-07 08:21] LABS: LDL CHOLESTEROL (DIRECT) 120 mg/dl
[2017-04-07 08:22] LABS: HEMOGLOBIN A1C 5.9 % (4.5-5.6)
== END | disposition home or self-care (01) ==
LOC: C.LAB 07:14
PROVIDERS: ATTEND Family Medicine
DX: I10 Essential (primary) hypertension (principal); E78.5 Hyperlipidemia, unspecified; K76.9 Liver disease, unspecified; R73.01 Impaired fasting glucose

== ENCOUNTER → 2017-04-18 | Outpatient (CLI) | payer OTHER | END | disposition home or self-care (01) | LOC: C.LAB 18:22 | PROVIDERS: ATTEND Family Medicine | DX: G60.9 Hereditary and idiopathic neuropathy, unspecified (principal) ==

== ENCOUNTER → 2017-05-05 | Outpatient (CLI) | payer OTHER ==
[2017-05-05 10:36] LABS: BASO % 0.6 %; BASO ABS # 0.05 K/uL (0-0.2); EOS % 4.8 %; EOS ABS # 0.41 K/uL (0-0.5); HEMATOCRIT 43.7 % (42-52); HEMOGLOBIN 15.2 g/dL (14.0-18.0); IG# 0.05 K/uL (0.00-0.02); LYMPH ABS # 1.88 K/uL (1.2-3.4); MEAN CELL VOLUME 95.4 fL (80-100); MEAN CORPUSCULAR HEMOGLOBIN 33.2 pg (25-34); MEAN CORPUSCULAR HGB CONC 34.8 g/dl (32-36); MEAN PLATELET VOLUME 10.7 fL (7.4-10.4); MONO % 9.6 %; MONO ABS # 0.82 K/uL (0.11-0.59); NEUT % 62.4 %; NEUT ABS # 5.34 K/uL (1.4-6.5); PLATELET COUNT 214 K/uL (130-400); RED CELL DISTRIBUTION WIDTH SD 45.2 fL (36.4-46.3); WHITE BLOOD COUNT 8.55 K/uL (4.8-10.8)
== END | disposition home or self-care (01) ==
LOC: C.LAB 09:06
PROVIDERS: ATTEND Family Medicine
DX: D72.829 Elevated white blood cell count, unspecified (principal)

== ENCOUNTER 2017-05-15 17:39 | Emergency (ER) | payer OTHER ==
[~2017-05-15] VITALS: Ht 180.3 cm; Wt 92.2 kg
[~2017-05-15 17:39] MED LIST changes: -PRS5 PO
[2017-05-15 17:46] VITALS: TEMP 36.7; Ht 180.3 cm; Wt 92.2 kg
[2017-05-15 18:11] VITALS: O2SAT 97
[2017-05-15] MEDS ORDERED: PRS5 PO (18:48)
[2017-05-15] MEDS ORDERED: TELM1TAB8 PO (18:58)
[2017-05-15] MEDS ORDERED: DLTCD/240 PO (18:58)
[2017-05-15] MEDS ORDERED: ONDA-63 PO (18:58)
--- NOTE | 2017-05-15 18:59 | EMERGENCY ROOM VISIT NOTE ---
ED Visit Note First contact with patient: 17:50 12/22/2015 CHIEF COMPLAINT: Accidental overdose of blood pressure medication HISTORY OF PRESENTING ILLNESS: This is a 61-year-old male who presents to the emergency department by private vehicle with concern for taking an extra dose of his blood pressure pills today. Patient states that he took his blood pressure medication this morning at about 4:45 AM. He also takes medications at 5 PM, however he grabbed the wrong pill container and accidentally took a second dose of these medications. The medications in question were diltiazem HCL ER 240 mg and telmisartan 80 mg. Patient states that he tried to throw up the pills but was unable to do so. Patient spoke with poison control, who told him things to monitor, however when he spoke with his primary care provider he was instructed to come to the ED for further evaluation. Patient states he has been feeling slightly flushed, which he attributes to recently trying to vomit. He denies any symptoms of headache, vision changes, dizziness or syncope, chest pain, shortness of breath, palpitations, nausea or vomiting, abdominal pain, diarrhea, urinary symptoms, or unusual rash. He denies any fevers or chills. REVIEW OF SYSTEMS: A complete 10 point review of systems was reviewed with the patient with pertinent positives and negatives as per history of present illness. All else were negative. PAST MEDICAL HISTORY: Reviewed in chart. SOCIAL HISTORY: Lives at home with family. Denies tobacco, alcohol, recreational drug use. ALLERGIES: Reviewed in chart. PHYSICAL EXAM: CONSTITUTIONAL: Pleasant and cooperative. No acute distress, non-diaphoretic. Well appearing and well nourished. HEENT: Normocephalic, atraumatic. PERRL, EOMI, irritated conjunctiva with injected sclera bilaterally. TMs normal. Pharynx normal. NECK: Supple, full active range of motion without discomfort. No cervical adenopathy. RESPIRATORY: Clear to auscultation bilaterally with no wheezing, crackles, rhonchi or stridor. Equal expansion bilaterally. CARDIOVASCULAR: Regular rate and rhythm with no murmurs, rubs or gallops. Normal peripheral perfusion. No edema. GASTROINTESTINAL: Soft, nontender, nondistended. No palpable masses or HSM. Bowel sounds present in all quadrants. MUSCULOSKELETAL: Full range of motion of all joints without discomfort. INTEGUMENTARY: No rash or other significant dermatologic conditions noted. NEUROLOGIC: Alert and oriented X 4 with normal affect. Cranial nerves II-XII grossly intact. No focal neurologic deficits noted. Normal strength and sensation in all 4 extremities. Normal speech. Normal gait observed ED COURSE AND MEDICAL DECISION MAKING: CC: Patient presenting with complaint of accidental overdose of blood pressure medication DIFFERENTIAL DIAGNOSIS: Includes, but not limited to accidental overdose, intentional overdose, cardiac dysrhythmia, among others. INTERPRETATION OF LABS: No electrolyte abnormalities, normal renal function. EKG: Shows normal sinus rhythm with a rate of 73 bpm, no acute ischemic changes noted, T-wave inversion in lead III only, no significant changes when compared to previous EKG from 12/22/2015 by my interpretation. MEDICATION RECONCILIATION: I attest that I have personally reviewed the patient 's current medication list. INITIAL VITAL SIGNS REVIEW: I reviewed the patient's initial vital signs and interpret them as follows: T: Afebrile; BP: Hypertensive; HR: Within normal limits; RR: Within normal limits; Pulse Ox: Within normal limits on room air. Blood pressure screening: The patient was found to have an elevated blood pressure and was referred to their primary doctor for recheck and further treatment. SUMMARY: Patient was evaluated at bedside, history and physical exam performed. Patient is alert and oriented, in no acute distress, resting calmly in the stretcher. Patient denies any symptoms of headache, chest pain, shortness of breath, dizziness. He is not diaphoretic. EKG normal sinus rhythm with no ischemic changes. Patient was placed on the court monitor and monitored throughout the entire extent of their stay. In addition, the patient's pulse oximetry was monitored throughout the entire stay. Any abnormalities or aberrancies were addressed appropriately. Patient discussed with Dr. Park, who agrees with my assessment and plan. Labs reviewed as above, no acute abnormalities. I spoke with Celi at poison control at 6:15 PM, she did not recommend any specific labs or other tests to be done besides cardiac monitoring and an EKG. Review of the patient's medications was performed with poison control, she states peak of the extended release diltiazem should be about 4-6 hours and peak of the telmisartan should be about 1 hour. Patient was observed in the emergency department for greater than 4 hours after ingestion of his medications, which should correlate with the peak of both medications, and he remained without any adverse symptoms. Patient reassessed multiple times throughout ED stay, he remains stable and well -appearing, no complaints, and is ready for discharge. Patient was updated on all results and plan for discharge, he was encouraged to call his PCP tomorrow to determine when he should restart his blood pressure medications, was encouraged to follow-up as needed. Patient was also given strict return precautions should his symptoms worsen, he verbalized understanding. Patient was discharged home in stable condition and ambulatory. Problem List Medical Problems: (1) HTN (hypertension) Status: Chronic Surgical Problems: (1) H/O shoulder surgery Status: Resolved Current/Historical Medications Scheduled Allopurinol (Allopurinol), 300 MG PO QAM Diltiazem Hcl (Diltiazem Cd), 240 MG PO QAM Finasteride (Finasteride), 5 MG PO DAILY Telmisartan (Telmisartan), 80 MG PO QAM Scheduled PRN Ondansetron (Ondansetron HCl), 8 MG PO Q8 PRN for Nausea Allergies Coded Allergies: No Known Allergies (Unverified , 05/15/17) Vital Signs Date Time Temp Pulse Resp B/P (MAP) Pulse Ox O2 Delivery O2 Flow Rate FiO2 05/15/17 21:36 66 16 133/75 97 Room Air 05/15/17 20:13 69 16 146/78 97 Room Air 05/15/17 20:09 65 05/15/17 18:51 70 14 133/68 94 Room Air 05/15/17 18:11 97 Room Air 05/15/17 17:46 36.7 76 18 179/89 95 Room Air Laboratory Results 05/15/17 18:30 Test 05/15/17 18:30 Anion Gap 10.0 mmol/L (3-11) Est Creatinine Clear Calc Drug Dose 84.1 ml/min Estimated GFR () 86.4 Estimated GFR (Non- 74.5 BUN/Creatinine Ratio 12.3 (10-20) Calcium Level 9.6 mg/dl (8.5-10.1) Departure Information Impression Primary Impression: Accidental overdose Dispostion Home / Self-Care Condition GOOD Referrals Claudy Bui D.O. (PCP) Patient Instructions ED Overdose Accidental, [facility] Additional Instructions You were evaluated and treated in the emergency department today for your accidental overdose of blood pressure medications. Use caution with taking your medications in the future. Please call your primary care provider tomorrow morning for guidance regarding resuming your blood pressure medications. Please return to the emergency department if you develop any symptoms of chest pain, trouble breathing, headache, blurry vision, severe dizziness or passing out, or any other concerns. Problem Qualifiers Primary Impression: Accidental overdose Encounter type: initial encounter Qualified Codes: T50.901A - Poisoning by unspecified drugs, medicaments and biological substances, accidental ( unintentional), initial encounter
[2017-05-15 19:04] LABS: CREATININE 1.07 mg/dl (0.60-1.40)
[2017-05-15 19:05] LABS: CALCIUM 9.6 mg/dl (8.5-10.1); POTASSIUM 3.6 mmol/L (3.5-5.1)
[2017-05-15 21:36] VITALS: BP 133/75; PULSE 66; O2SAT 97
== END 2017-05-15 21:36 | disposition home or self-care (01) ==
LOC: C.EDB 17:40
DX: T46.1X1A Poisoning by calcium-channel blockers, accidental (unintentional), initial encounter (principal); H11.89 Other specified disorders of conjunctiva; H15.89 Other disorders of sclera; I10 Essential (primary) hypertension

== ENCOUNTER → 2017-06-01 | Outpatient (CLI) | payer OTHER ==
[~2017-06-01] MED LIST changes: -DILT240C48 PO; +DLTCD/240 PO; +ONDA-63 PO; +PRS5 PO; +TELM1TAB8 PO; -TELM80TA PO
== END | disposition home or self-care (01) ==
LOC: C.LAB 07:53
PROVIDERS: ATTEND Psychiatry & Neurology Neurology
DX: G62.9 Polyneuropathy, unspecified (principal)

== ENCOUNTER → 2017-06-24 | Outpatient (CLI) | payer OTHER ==
[2017-06-24 13:01] LABS: BLOOD UREA NITROGEN 14 mg/dl (7-18)
== END | disposition home or self-care (01) ==
LOC: C.LAB 12:21
PROVIDERS: ATTEND Urology
DX: R35.1 Nocturia (principal)

== ENCOUNTER 2020-10-13 09:16 | Observation (INO) ==
[2020-10-13 09:48] LABS: Basophils # (auto) 0.02 K/uL (0-0.2); Basophils % (auto) 0.4 %; Eosinophils # (auto) 0.08 K/uL (0-0.5); Eosinophils % (auto) 1.7 %; Hematocrit (blood only) 42.1 % (42-52); Hemoglobin 14.6 g/dL (14.0-18.0); Immature Granulocytes # (auto) 0.02 K/uL (0.00-0.02); Immature Granulocytes % (auto) 0.4 %; Lymphocytes # (auto) 1.31 K/uL (1.2-3.4); Lymphocytes % (auto) 27.3 %; Mean Corpuscular Hemoglobin 33.7 pg (25-34); Mean Corpuscular Hgb Conc 34.7 g/dL (32-36); Mean Corpuscular Volume 97.2 fL (80-100); Mean Platelet Volume 10.6 fL (7.4-10.4); Monocytes % (auto) 8.4 %; Neutrophils # (auto) 2.96 K/uL (1.4-6.5); Neutrophils % (auto) 61.8 %; Platelet Count 157 K/uL (130-400); RDW Coefficient of Variation 12.9 % (11.5-14.5); Red Blood Count 4.33 M/uL (4.7-6.1); White Blood Count 4.79 K/uL (4.8-10.8)
[2020-10-13 09:57] LABS: Partial Thromboplastin Ratio 1.1; Partial Thromboplastin Time 29.7 Seconds (21.0-31.0); Prothrombin Time 10.6 Seconds (9.0-12.0)
[2020-10-13 10:13] LABS: Alanine Aminotransferase 148 U/L (12-78); Albumin Level 4.2 gm/dl (3.4-5.0); Aspartate Aminotransferase 71 U/L (15-37); Blood Urea Nitrogen 13 mg/dl (7-18); Calcium 9.4 mg/dl (8.5-10.1); Carbon Dioxide 25 mmol/L (21-32); Chloride 103 mmol/L (98-107); Creatinine Clr Calc Pharmacy 83.9 ml/min; Est GFR (African American) 85.9 ml/min; Est GFR (Non-African American) 74.1 ml/min; Glucose 152 mg/dl (70-99); Potassium 3.9 mmol/L (3.5-5.1); Sodium 137 mmol/L (136-145)
--- NOTE | 2020-10-13 10:13 | XRay Report ---
SINGLE VIEW CHEST CLINICAL HISTORY: Atypical chest pain. FINDINGS: An AP, portable, upright chest radiograph is compared to study dated 09/18/2020 and correlat ed with chest CT dated 05/25/2016. The cardiomediastinal silhouette is unremarkable noting atherosclero tic calcification of the thoracic aorta. Enlargement of the central pulmonary arteries suggests pulmo nary artery hypertension. There is mild elevation of the right hemidiaphragm with bibasilar scarring/ atelectasis. No airspace consolidation or large pleural effusion is identified. No pneumothorax is se en. The skeletal structures appear osteopenic. The bony thorax is grossly intact. Degenerative change is noted throughout the thoracic spine. IMPRESSION: No acute cardiopulmonary abnormality. ACT 112: Negative or not required by law. Electronically signed by: Carlo Busby M.D. 10/13/2020 10:12 AM
[2020-10-13 10:17] LABS: Albumin Globulin Ratio 1.1 (0.9-2); Alkaline Phosphatase 65 U/L (45-117); Bilirubin,Total 0.6 mg/dl (0.2-1); Globulin 3.7 gm/dl (2.5-4.0); Total Protein 7.9 gm/dl (6.4-8.2); Troponin I < 0.015 ng/ml (0-0.045)
[2020-10-13] MEDS ORDERED: NITROGLYCERIN SL 0.4 MG/TAB TAB SL PRN ×2 (10:50→18:50)
[2020-10-13] MEDS ORDERED: ASPIRIN CHEW 324 MG PO STA (10:50)
[2020-10-13] MEDS ORDERED: GI COCKTAIL ED USE PO ONE (10:50)
--- NOTE | 2020-10-13 10:55 | Emergency Department Note ---
Impression & Plan Chest pain, HTN (hypertension) ED Provider Note NAME: PRESLEY FOSTER AGE: 65 SEX: M : 1955 ARRIVES VIA: Walk-In INFORMANT: Patient ED PROVIDER(S): Juvencio Mac DO CHIEF COMPLAINT: chest pain HPI: Patient is a 65-year-old gentleman who presents to the ER for precordial chest pain which has been present off and on for the past 3 days. He notes it c omes and goes generally with exertion. He intermittently will have some shortness of breath with it. He will also intermittently make his jaw and arm hurt. Several days ago just before this started he noticed his heart beating fast and he could notice it in his back. He describes the pain has a sharp pain. No other exacerbating or remitting factors. Denies any dysuria urgency or frequency. No belly pain. No nausea or vomiting. No diaphoresis. 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 He has a past medical history of hypertension and hyperlipidemia. ROS: See above HPI for pertinent positives & negatives. A total of 10 systems reviewed and were otherwise negative. PAST MEDICAL HISTORY:See Below PAST SURGICAL HISTORY:See Below FAMILY HISTORY:See Below SOCIAL HISTORY:See Below HOME MEDICATIONS:See Below ALLERGIES:See Below VITALS:See Below PHYSICAL EXAMINATION: GENERAL: Sitting up in bed, alert, well appearing, well nourished, no distress, non-toxic EYE EXAM: normal conjunctiva. OROPHARYNX: no exudate, no erythema, lips, buccal mucosa, and tongue normal and mucous membranes are moist NECK: supple, no nuchal rigidity, no adenopathy, non-tender LUNGS: Clear to auscultation. Normal chest wall mechanics HEART: no murmurs, S1 normal and S2 normal ABDOMEN: abdomen soft, non-tender, normo-active bowel sounds, no masses, no rebound or guarding. UPPER EXTREMITIES: upper extremities are grossly normal. LOWER EXTREMITIES: No pitting edema. NEURO EXAM: Normal sensorium, cranial nerves II-XII grossly intact, normal speech, no gross weakness of arms, no gross weakness of legs. MEDICAL DECISION MAKING: Patient is a 65-year-old male with past medical history of hypertension hyperlipidemia that presents the ER for exertional chest pain over the past 3 days. IV was established blood work was obtained. Labs show mild leukopenia 4000. No significant anemia. INR was unremarkable. D-dimer was negative. BMP was unremarkable. LFTs slightly elevated. ALT slightly elevated at 148. Troponins negative x2. Patient was still having intermittent pain. He was given nitro and the pain resolved. Discussed with Dr. Escobar who recommended admission and they will see him. On reevaluation his pain had now abated. Discussed with hospitalist for further evaluation. Triage Nursing notes reviewed. Limited review of prior medical records performed Vital Signs: reviewed and remarkable for HTN Differential diagnosis: Differential diagnoses includes but is not limited to acute coronary syndrome, myocardial infarction, pericarditis, pulmonary embolus, aortic dissection, pneumonia, pneumothorax, musculoskeletal, shingles, esophageal. ER treatment provided: See below Diagnostics interpreted by me: ECG: Sinus rhythm rate of 67 normal axis T wave inversion in the inferior leads QTC 418 EKG is unchanged from previous on September 18, 2020 Cardiac Monitoring: An order was placed for continuous cardiac monitoring. The monitor shows a rate of 80 with sinus rhythm. Laboratory studies: As stated above and show below. Imaging studies: Portable AP upright 1 view of the chest was unremarkable Consultation(s): Discussed with Dr. Silver Escobar who recommended admission Discussed with the hospitalist for further evaluation Procedures: none Critical Care: None Past Med/Surg History Medical History BPH (benign prostatic hyperplasia) Former smoker Gout Hyperlipidemia Hypertension IBS (irritable bowel syndrome) Surgical History History of cardiac cath 10-15 YRS AGO NO STENTS History of colonoscopy X 2-3 History of esophagogastroduodenoscopy (EGD) History of herniorrhaphy History of repair of rotator cuff R/L Family History Father Family history of diabetes mellitus Family/Other Family history of diabetes mellitus Mother Coronary heart disease fatal [place] age 78 Social History Tobacco Type: Smokeless Tobacco (Dip or Chew) Second Hand Exposure: No; Hx Alcohol Use: Yes (2 beers a day) Alcohol type: beer Hx Substance Use: No Preferred Language: Spanish Communication Ability: Effective Remote Coders Required: No Beliefs That Will Affect Care: None Current Living Situation: Spouse Feels Safe at Home: Yes Assistive Devices: Glasses Allergies Allergies Allergy/AdvReac Type Severity Reaction Status Date / Time cefuroxime [From Ceftin] Allergy Unknown Verified 10/13/20 10:44 clarithromycin Allergy Unknown Verified 10/13/20 10:44 prednisone AdvReac Severe Tachycardia Verified 10/13/20 10:44 Home Meds Home Medications Medication Instructions Recorded Confirmed allopurinol 300 mg tablet 300 mg PO QAM 11/29/17 10/13/20 diltiazem HCl 240 mg 240 mg PO QAM 11/29/17 10/13/20 capsule,extended release 24 hr esomeprazole magnesium 20 mg 20 mg PO UD PRN 11/29/17 10/13/20 capsule,delayed release (Nexium) telmisartan 80 mg tablet 80 mg PO QAM 11/29/17 10/13/20 rosuvastatin 10 mg tablet 10 mg PO PM 01/24/19 10/13/20 naproxen sodium 220 mg tablet 220 mg PO Q12H PRN 09/18/20 10/13/20 (Aleve) omega-3 fatty acids 1,000 mg 1,000 mg PO 6XD 09/18/20 10/13/20 capsule (Fish Oil Concentrate) turmeric 400 mg capsule 400 mg PO QAM 09/18/20 10/13/20 vitamin E 200 unit tablet 90 mg PO QAM 09/18/20 10/13/20 tramadol 50 mg tablet 50 mg PO BID PRN 10/13/20 10/13/20 Previous Rx's Medication Instructions Recorded finasteride 5 mg tablet 5 mg PO Q2D #90 tab 10/14/18 Results & Data (ED) Vital Signs Vital Signs - 24 hr 10/13/20 09:30 10/13/20 10:58 10/13/20 11:46 Temperature 36.9 C Temperature Source Oral Pulse Rate 66 59 L Pulse Rate [Finger] 58 L 61 Pulse Rate from SpO2 Sensor 59 L Respiratory Rate 20 16 16 Respiratory Depth Normal Blood Pressure 179/87 H 188/103 H Blood Pressure [Right Arm] 172/84 H 188/103 H Blood Pressure Mean 117 131 Blood Pressure Mean [Right Arm] 113 131 Blood Pressure Position [Right Arm] Sitting Pulse Oximetry 96 97 97 Oxygen Delivery Method Room Air Room Air Room Air Sepsis Recent Fever Within 48 Hours No Sepsis New/Unexplained Change in Mental Status N/A Sepsis Action Taken by Nursing No Action Required 10/13/20 12:00 10/13/20 12:30 10/13/20 13:00 Temperature Temperature Source Pulse Rate 55 L 55 L 55 L Pulse Rate [Finger] 55 L Pulse Rate from SpO2 Sensor 56 L 56 L 55 L Respiratory Rate 16 22 23 Respiratory Depth Blood Pressure 155/85 H 178/85 H 159/88 H Blood Pressure [Right Arm] 155/85 H Blood Pressure Mean 108 116 111 Blood Pressure Mean [Right Arm] 108 Blood Pressure Position [Right Arm] Sitting Pulse Oximetry 97 97 96 Oxygen Delivery Method Room Air Room Air Room Air Sepsis Recent Fever Within 48 Hours Sepsis New/Unexplained Change in Mental Status Sepsis Action Taken by Nursing 10/13/20 13:30 10/13/20 14:01 10/13/20 14:30 Temperature Temperature Source Pulse Rate 58 L 59 L 57 L Pulse Rate [Finger] Pulse Rate from SpO2 Sensor 57 L 59 L 56 L Respiratory Rate 18 19 23 Respiratory Depth Blood Pressure 160/91 H 186/104 H 166/70 H Blood Pressure [Right Arm] Blood Pressure Mean 114 131 102 Blood Pressure Mean [Right Arm] Blood Pressure Position [Right Arm] Pulse Oximetry 96 98 97 Oxygen Delivery Method Room Air Room Air Room Air Sepsis Recent Fever Within 48 Hours Sepsis New/Unexplained Change in Mental Status Sepsis Action Taken by Nursing 10/13/20 15:00 10/13/20 15:30 Temperature Temperature Source Pulse Rate 58 L 59 L Pulse Rate [Finger] Pulse Rate from SpO2 Sensor 61 60 Respiratory Rate 15 23 Respiratory Depth Blood Pressure 185/97 H 210/115 H Blood Pressure [Right Arm] Blood Pressure Mean 126 146 Blood Pressure Mean [Right Arm] Blood Pressure Position [Right Arm] Pulse Oximetry 95 97 Oxygen Delivery Method Room Air Room Air Sepsis Recent Fever Within 48 Hours Sepsis New/Unexplained Change in Mental Status Sepsis Action Taken by Nursing Laboratory Data Result diagrams: 10/13/20 09:35 10/13/20 09:35 Lab Results 10/13/20 10/13/20 10/13/20 Range/Units 09:35 09:35 09:35 WBC 4.79 L (4.8-10.8) K/uL RBC 4.33 L (4.7-6.1) M/uL Hgb 14.6 (14.0-18.0) g/dL Hct 42.1 (42-52) % MCV 97.2 (80-100) fL MCH 33.7 (25-34) pg MCHC 34.7 (32-36) g/dL RDW Std Deviation 46.0 (36.4-46.3) fL RDW Coeff of Jourdan 12.9 (11.5-14.5) % Plt Count 157 (130-400) K/uL MPV 10.6 H (7.4-10.4) fL Immature Gran % (Auto) 0.4 % Neut % (Auto) 61.8 % Lymph % (Auto) 27.3 % [place] % (Auto) 8.4 % Eos % (Auto) 1.7 % Baso % (Auto) 0.4 % Neut # (Auto) 2.96 (1.4-6.5) K/uL Lymph # (Auto) 1.31 (1.2-3.4) K/uL [place] # (Auto) 0.40 (0.11-0.59) K/uL Eos # (Auto) 0.08 (0-0.5) K/uL Baso # (Auto) 0.02 (0-0.2) K/uL Immature Gran # (Auto) 0.02 (0.00-0.02) K/uL PT 10.6 (9.0-12.0) Seconds INR 1.0 (0.9-1.1) APTT 29.7 (21.0-31.0) Seconds PTT Ratio 1.1 D-Dimer (0-500) ug/L FEU Sodium 137 (136-145) mmol/L Potassium 3.9 (3.5-5.1) mmol/L Chloride 103 (98-107) mmol/L Carbon Dioxide 25 (21-32) mmol/L Anion Gap 8.0 (3-11) BUN 13 (7-18) mg/dl Creatinine 1.05 (0.6-1.4) mg/dl Est Cr Clr Drug Dosing 83.9 ml/min Est GFR ( Amer) 85.9 ml/min Est GFR (Non-Af Amer) 74.1 ml/min BUN/Creatinine Ratio 12.0 (10-20) Glucose 152 H (70-99) mg/dl Calcium 9.4 (8.5-10.1) mg/dl Total Bilirubin 0.6 (0.2-1) mg/dl AST 71 H (15-37) U/L ALT 148 H (12-78) U/L Alkaline Phosphatase 65 (45-117) U/L Troponin I < 0.015 (0-0.045) ng/ml Total Protein 7.9 (6.4-8.2) gm/dl Albumin 4.2 (3.4-5.0) gm/dl Globulin 3.7 (2.5-4.0) gm/dl Albumin/Globulin Ratio 1.1 (0.9-2) COVID-19 Eval Order SARS-CoV-2 (PCR) (Negative) 10/13/20 10/13/20 10/13/20 Range/Units 09:35 11:38 13:45 WBC (4.8-10.8) K/uL RBC (4.7-6.1) M/uL Hgb (14.0-18.0) g/dL Hct (42-52) % MCV (80-100) fL MCH (25-34) pg MCHC (32-36) g/dL RDW Std Deviation (36.4-46.3) fL RDW Coeff of Jourdan (11.5-14.5) % Plt Count (130-400) K/uL MPV (7.4-10.4) fL Immature Gran % (Auto) % Neut % (Auto) % Lymph % (Auto) % [place] % (Auto) % Eos % (Auto) % Baso % (Auto) % Neut # (Auto) (1.4-6.5) K/uL Lymph # (Auto) (1.2-3.4) K/uL [place] # (Auto) (0.11-0.59) K/uL Eos # (Auto) (0-0.5) K/uL Baso # (Auto) (0-0.2) K/uL Immature Gran # (Auto) (0.00-0.02) K/uL PT (9.0-12.0) Seconds INR (0.9-1.1) APTT (21.0-31.0) Seconds PTT Ratio D-Dimer 300 (0-500) ug/L FEU Sodium (136-145) mmol/L Potassium (3.5-5.1) mmol/L Chloride (98-107) mmol/L Carbon Dioxide (21-32) mmol/L Anion Gap (3-11) BUN (7-18) mg/dl Creatinine (0.6-1.4) mg/dl Est Cr Clr Drug Dosing ml/min Est GFR ( Amer) ml/min Est GFR (Non-Af Amer) ml/min BUN/Creatinine Ratio (10-20) Glucose (70-99) mg/dl Calcium (8.5-10.1) mg/dl Total Bilirubin (0.2-1) mg/dl AST (15-37) U/L ALT (12-78) U/L Alkaline Phosphatase (45-117) U/L Troponin I < 0.015 (0-0.045) ng/ml Total Protein (6.4-8.2) gm/dl Albumin (3.4-5.0) gm/dl Globulin (2.5-4.0) gm/dl Albumin/Globulin Ratio (0.9-2) COVID-19 Eval Order Covid19 at [facility] SARS-CoV-2 (PCR) (Negative) 10/13/20 Range/Units 13:45 WBC (4.8-10.8) K/uL RBC (4.7-6.1) M/uL Hgb (14.0-18.0) g/dL Hct (42-52) % MCV (80-100) fL MCH (25-34) pg MCHC (32-36) g/dL RDW Std Deviation (36.4-46.3) fL RDW Coeff of Jourdan (11.5-14.5) % Plt Count (130-400) K/uL MPV (7.4-10.4) fL Immature Gran % (Auto) % Neut % (Auto) % Lymph % (Auto) % [place] % (Auto) % Eos % (Auto) % Baso % (Auto) % Neut # (Auto) (1.4-6.5) K/uL Lymph # (Auto) (1.2-3.4) K/uL [place] # (Auto) (0.11-0.59) K/uL Eos # (Auto) (0-0.5) K/uL Baso # (Auto) (0-0.2) K/uL Immature Gran # (Auto) (0.00-0.02) K/uL PT (9.0-12.0) Seconds INR (0.9-1.1) APTT (21.0-31.0) Seconds PTT Ratio D-Dimer (0-500) ug/L FEU Sodium (136-145) mmol/L Potassium (3.5-5.1) mmol/L Chloride (98-107) mmol/L Carbon Dioxide (21-32) mmol/L Anion Gap (3-11) BUN (7-18) mg/dl Creatinine (0.6-1.4) mg/dl Est Cr Clr Drug Dosing ml/min Est GFR ( Amer) ml/min Est GFR (Non-Af Amer) ml/min BUN/Creatinine Ratio (10-20) Glucose (70-99) mg/dl Calcium (8.5-10.1) mg/dl Total Bilirubin (0.2-1) mg/dl AST (15-37) U/L ALT (12-78) U/L Alkaline Phosphatase (45-117) U/L Troponin I (0-0.045) ng/ml Total Protein (6.4-8.2) gm/dl Albumin (3.4-5.0) gm/dl Globulin (2.5-4.0) gm/dl Albumin/Globulin Ratio (0.9-2) COVID-19 Eval Order SARS-CoV-2 (PCR) NEGATIVE (Negative) Administered Medications Enalaprilat 0.625 mg/ Syringe 10 mls @ 2 mls/min IV Q6H PRN PRN Reason: Hypertension Stop: 11/12/20 16:14 Last Admin: 10/13/20 16:27 Dose: 2 mls/min Documented by: [id number] Nitroglycerin (Nitroglycerin Sl 0.4 Mg/Tab Tab) 0.4 mg SL PRN PRN PRN Reason: Chest Pain Stop: 11/12/20 10:49 Last Admin: 10/13/20 11:43 Dose: 0.4 mg Documented by: [id number] Ondansetron HCl (Ondansetron Inj 2 Mg/Ml 2 Ml Vial) 4 mg IV Q6H PRN PRN Reason: Nausea And Vomiting Stop: 11/12/20 16:31 Last Admin: 10/13/20 16:38 Dose: 4 mg Documented by: [id number] Discontinued Medications Al Hydrox/Mg Hydrox/Simethicone (Gi Cocktail Ed Use) 1 dose PO ONE ONE Stop: 10/13/20 10:51 Last Admin: 10/13/20 11:44 Dose: 1 dose Documented by: [id number] Aspirin (Aspirin Chew 324 Mg) 324 mg PO NOW STA Stop: 10/13/20 10:51 Last Admin: 10/13/20 11:44 Dose: 324 mg Documented by: [id number] Imaging Data Radiologist's Impression: Chest X-Ray 10/13/20 09:33 SINGLE VIEW CHEST CLINICAL HISTORY: Atypical chest pain. FINDINGS: An AP, portable, upright chest radiograph is compared to study dated 09/18/2020 and correlated with chest CT dated 05/25/2016. The cardiomediastinal silhouette is unremarkable noting atherosclerotic calcification of the thoracic aorta. Enlargement of the central pulmonary arteries suggests pulmonary artery hypertension. There is mild elevation of the right hemidiaphragm with bibasilar scarring/atelectasis. No airspace consolidation or large pleural effusion is identified. No pneumothorax is seen. The skeletal structures appear osteopenic. The bony thorax is grossly intact. Degenerative change is noted throughout the thoracic spine. IMPRESSION: No acute cardiopulmonary abnormality. ACT 112: Negative or not required by law. Electronically signed by: Carlo Busby M.D. 10/13/2020 10:12 AM Discharge Plan Visit Data Chief Complaint: Chest Pain Stated Complaint: CHEST PAIN INTO BACK ED Provider: Juvencio Mac Discharge Problem: Chest pain, HTN (hypertension) Forms Stand Alone Forms: My [facility] Prescriptions Prescriptions: No Action finasteride 5 mg tablet 5 mg PO Q2D Qty: 90 RF: 3 diltiazem HCl 240 mg Capsule,Extended Release 24hr 240 mg PO QAM RF: 0 telmisartan 80 mg Tablet 80 mg PO QAM RF: 0 allopurinol 300 mg Tablet 300 mg PO QAM RF: 0 esomeprazole magnesium [Nexium] 20 mg Capsule,Delayed Release(Dr/Ec) 20 mg PO UD PRN (Reason: Acid Reflux) RF: 0 rosuvastatin 10 mg tablet 10 mg PO PM RF: 0 omega-3 fatty acids [Fish Oil Concentrate] 1,000 mg Capsule 1,000 mg PO 6XD RF: 0 naproxen sodium [Aleve] 220 mg Tablet 220 mg PO Q12H PRN (Reason: Back Pain) RF: 0 vitamin E 200 unit Tablet 90 mg PO QAM RF: 0 turmeric 400 mg Capsule 400 mg PO QAM RF: 0 tramadol 50 mg tablet 50 mg PO BID PRN (Reason: Pain) RF: 0 Referrals Referrals: Claudy Bui [Primary Care Provider] -
[2020-10-13 11:48] LABS: D Dimer 300 ug/L FEU (0-500)
--- NOTE | 2020-10-13 14:16 | History & Physical Report ---
Date of Service October 13, 2020 Assessment & Plan (1) Chest pain: Plan: Pt is 65 y/o M with PMH HTN, HLD, BPH, gout presented to ER with complaint of a intermittent chest pain and SOB with exertion x 3 days. 3 days sensation tachycardia while working outside. Reports history of negative stress test at [place] in 04/2020. Reports history normal cardiac cath greater than 10 years ago. In ER afebrile, P: 66, R: 20, BP 179/87, 96% on room air. Negative initial tro ponin, EKG sinus rhythm, incomplete RBBB (incomplete RBBB seen in prior EKGs). In ER was given 324 mg aspirin, nitro x1, GI cocktail. Denies any current chest pain or shortness of breath. CHEST PAIN R/O ACS. Risk factors: HTN, hyperlipidemia -Monitor Vitals -Repeat EKG in am -Will trend troponin -Echo -lipid panel in am, continue statin -aspirin -Nitro prn CP and repeat EKG for CP -NPO midnight -Cardiology consult (2) HTN (hypertension): Plan: -Continue diltiazem, telmisartan (3) Hyperlipidemia: Plan: -Continue rosuvastatin (4) BPH (benign prostatic hyperplasia): Plan: -Continue finasteride (5) Gout: Plan: -Continue allopurinol DVT Prophylaxis -Heparin SQ Full Code as per discussion with pt Follows with Dr Claudy Bui in [place] for routine care Pt was seen and care coordinated with Dr Urias. See addendum History of Present Illness Chief Complaint: CP Primary Care Provider: Claudy Bui Pt is 65 y/o M with PMH HTN, HLD, BPH, gout presented to ER with complaint of a intermittent chest pain x 3 days. Patient states 3 days ago was mowing and trimming tree when he had sensation of fast heartbeat. He reports he went to the house took a shower and tried to relax and his heart beat returned to normal sensation. Patient states will have some mid chest discomfort and shortness of breath intermittently with exertion. States this morning having chest discomfort and did not feel well overall. Patient also states intermittent left upper arm pain, he is unsure if this occurs with chest pain. 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 Currently patient denies any chest discomfort or shortness of breath. Chronic neck pain, denies any change. Reports history of negative stress test at [place] in 04/2020. Reports history normal cardiac cath greater than 10 years ago. Denies fever/chills, diaphoresis, N/V/D/C, CABRERA, dizziness, syncope, vision changes, orthopnea, palpitations, cough, sore throat, choking, otalgia, rhinorrhea, abdominal pain, paresthesias, weakness, extremity weakness, extremity edema, leg pain, rashes, urinary symptoms. In ER afebrile, P: 66, R: 20, BP 179/87, 96% on room air. Negative initial troponin, EKG sinus rhythm, incomplete RBBB (incomplete RBBB seen in prior EKGs). In ER was given 324 mg aspirin, nitro x1, GI cocktail. Denies any current chest pain or shortness of breath. Allergies Allergy/AdvReac Type Severity Reaction Status Date / Time cefuroxime [From Ceftin] Allergy Unknown Verified 10/13/20 10:44 clarithromycin Allergy Unknown Verified 10/13/20 10:44 prednisone AdvReac Severe Tachycardia Verified 10/13/20 10:44 Home Medications Medication Instructions Recorded Confirmed Type allopurinol 300 mg tablet 300 mg PO QAM 11/29/17 10/13/20 History diltiazem HCl 240 mg 240 mg PO QAM 11/29/17 10/13/20 History capsule,extended release 24 hr esomeprazole magnesium 20 mg 20 mg PO UD PRN 11/29/17 10/13/20 History capsule,delayed release (Nexium) telmisartan 80 mg tablet 80 mg PO QAM 11/29/17 10/13/20 History finasteride 5 mg tablet 5 mg PO Q2D #90 tab 10/14/18 10/13/20 Rx rosuvastatin 10 mg tablet 10 mg PO PM 01/24/19 10/13/20 History naproxen sodium 220 mg tablet 220 mg PO Q12H PRN 09/18/20 10/13/20 History (Aleve) omega-3 fatty acids 1,000 mg 1,000 mg PO 6XD 09/18/20 10/13/20 History capsule (Fish Oil Concentrate) turmeric 400 mg capsule 400 mg PO QAM 09/18/20 10/13/20 History vitamin E 200 unit tablet 90 mg PO QAM 07/31/21 08/25/21 History tramadol 50 mg tablet 50 mg PO BID PRN 10/13/20 10/13/20 History Past Med/Surg History Medical History BPH (benign prostatic hyperplasia) Former smoker Gout Hyperlipidemia Hypertension IBS (irritable bowel syndrome) Surgical History History of cardiac cath 10-15 YRS AGO NO STENTS History of colonoscopy X 2-3 History of esophagogastroduodenoscopy (EGD) History of herniorrhaphy History of repair of rotator cuff R/L Family History Father Family history of diabetes mellitus Family/Other Family history of diabetes mellitus Mother Coronary heart disease fatal [place] age 78 Social History Smoking Status: Never smoker Tobacco Type: Smokeless Tobacco (Dip or Chew) Second Hand Exposure: No; Hx Alcohol Use: Yes Alcohol type: beer Hx Substance Use: No Preferred Language: Turkish Communication Ability: Effective Bindery Helper Required: No Beliefs That Will Affect Care: None Current Living Situation: Spouse Feels Safe at Home: Yes Safety Concerns: Feels Safe At This Time Assistive Devices: Glasses Review of Systems Review of Systems: All systems reviewed & are unremarkable except as noted in HPI & below Physical Exam Physical Exam: General: no distress, WDWN Head: normocephalic, atraumatic Eyes: PERRL, EOM's intact, conjunctiva non-injected, anicteric ENT: normal inspection external ears, nose, mucous membranes moist Neck: supple, trachea midline Lungs: clear, no respiratory distress, no wheezing/rhonchi/rales CV: RRR, no murmur, no JVD, no pretibial edema; chest wall without rashes, mild tenderness to palpation left sternal border Abd: normal BS, soft, non-tender Ext: no cyanosis, no calf tenderness Neuro: A&O x 3, no focal deficits noted, normal affect Skin: warm, dry Results & Data Results & Data ([facility]) Vital Signs (Past 12 Hours) Vital Signs Temp Pulse Pulse Resp BP BP Pulse Ox 10/13/20 13:30 58 L 18 160/91 H 96 10/13/20 13:00 55 L 23 159/88 H 96 10/13/20 12:30 55 L 22 178/85 H 97 10/13/20 12:00 55 L 55 L 16 155/85 H 155/85 H 97 10/13/20 11:46 59 L 61 16 188/103 H 188/103 H 97 10/13/20 10:58 58 L 16 172/84 H 97 10/13/20 09:30 36.9 C 66 20 179/87 H 96 Laboratory Results Short CBC 10/13/20 Range/Units 09:35 WBC 4.79 L (4.8-10.8) K/uL Hgb 14.6 (14.0-18.0) g/dL Hct 42.1 (42-52) % Plt Count 157 (130-400) K/uL BMP 10/13/20 09:35 Sodium 137 Potassium 3.9 Chloride 103 Carbon Dioxide 25 BUN 13 Creatinine 1.05 Glucose 152 H Calcium 9.4 Cardiac Enzymes 10/13/20 10/13/20 Range/Units 09:35 11:38 Troponin I < 0.015 < 0.015 (0-0.045) ng/ml Liver Function 10/13/20 Range/Units 09:35 Total Bilirubin 0.6 (0.2-1) mg/dl AST 71 H (15-37) U/L ALT 148 H (12-78) U/L Alkaline Phosphatase 65 (45-117) U/L Albumin 4.2 (3.4-5.0) gm/dl Diagnostic Findings Chest X-Ray 10/13/20 09:33 SINGLE VIEW CHEST CLINICAL HISTORY: Atypical chest pain. FINDINGS: An AP, portable, upright chest radiograph is compared to study dated 09/18/2020 and correlated with chest CT dated 05/25/2016. The cardiomediastinal silhouette is unremarkable noting atherosclerotic calcification of the thoracic aorta. Enlargement of the central pulmonary arteries suggests pulmonary artery hypertension. There is mild elevation of the right hemidiaphragm with bibasilar scarring/atelectasis. No airspace consolidation or large pleural effusion is identified. No pneumothorax is seen. The skeletal structures appear osteopenic. The bony thorax is grossly intact. Degenerative change is noted throughout the thoracic spine. IMPRESSION: No acute cardiopulmonary abnormality. ACT 112: Negative or not required by law. Electronically signed by: Carlo Busby M.D. 10/13/2020 10:12 AM ECG Rate (beats per minute): 67 Rhythm: sinus rhythm Additional Comments: incomplete RBBB Incomplete RBBB seen on prior EKGs Code Status & VTE Plan VTE Prophylaxis Plan VTE Prophylaxis will be ordered: Yes Supervising Physician Co-Signing Physician Notes Patient is a 64-year-old male with history of hypertension, hyperlipidemia and other medical problems presents with history of intermittent retrosternal chest pain for 3 days duration. Denies any associated nausea, vomiting, shortness of breath, dizziness. Please review HPI for complete details of presentation. Admits to having stress test in April 2020 which was negative. Initial troponin negative. EKG showed T wave changes in inferior leads also noted on prior EKG. Echo showed no wall motion abnormality. Uncontrolled hypertension noted while in ED. On exam patient is moderately built and nourished, no apparent distress, normocephalic atraumatic, lungs are clear to auscultation, normal breath sounds, S1-S2, no murmur, no pedal edema, abdomen soft, nontender, normal bowel sounds, alert, awake, oriented, grossly no focal deficits. Patient is admitted for evaluation of chest pain. Will trend cardiac enzymes, repeat EKG with chest pain, possible need for stress test. Cardiology consulted. Continue aspirin. Agree with lipid panel, A1c. Keep her n.p.o. after midnight. Blood pressure management with diltiazem, telmisartan. Will give IV Vasotec as needed. I personally reviewed the record. Patient is interviewed and examined at bedside. Patient's care is coordinated with Monica Antonio PA-C. Please refer to the documentation above for details of patient's presentation and for discussion of other issues.
[2020-10-13] MEDS ORDERED: ENALAPRILAT 0.625 MG in SYRINGE 9.5 ML IV PRN (16:02)
[2020-10-13] MEDS ORDERED: ONDANSETRON INJ 2 MG/ML 2 ML VIAL IV PRN (16:32)
[2020-10-13] MEDS ORDERED: LORazepam 0.25 MG/0.5 ML VIAL IV STA (17:01)
--- NOTE | 2020-10-13 17:02 | Cardiology Consultation ---
Date of Consultation October 13, 2020 Assessment & Plan (1) Chest pain: EKG tracings performed thus far today reveal sinus rhythm with nonspecific T wave inversion in the inferior leads III and aVF. This however has been relatively unchanged compared to her prior tracing dating back to 2019. Troponin I was negative at 9:35 AM and again at 1138. We will continue to trend. Proceed with resting echocardiogram, and further ischemic work-up tomorrow after blood pressure is controlled. (2) HTN (hypertension): Patient states he does not feel anxious. He is on diltiazem 240 mg daily as well as telmisartan as an outpatient. He did not tolerate sublingual nitroglycerin well with having had a headache. He is to receive a dose of IV enalapril, and if his blood pressure remains elevated, we will proceed with giving him a one-time dose of lorazepam. His heart rate is in the 60s, so therefore I do not think IV metoprolol or labetalol will be helpful in this case. Will reassess after the lorasepam. (3) Hyperlipidemia: Continue rosuvastatin. History of Present Illness History of Present Illness Elías Christine is a 65-year-old male seen in cardiology consultation per the request of Dr. Mac for the evaluation of chest discomfort. The patient has received the majority of his cardiology care in the [place] area, having previously followed with cardiology up until 6 months ago when his doctor retired. He describes having had a plane EKG stress test about 6 months ago for screening purposes at that time he had no chest pain symptoms and he describes having had a normal past. He states that he has not been feeling well for the last several days. 2 days ago he was trimming branches on his property and noted symptoms such as back pain and feeling like his heart was pounding. This felt better after he relaxed in the air conditioning and he does note that it was excessively hot and humid outside. In the meantime, he has had a low intensity 2-5/10 left-sided chest discomfort that has been present at rest. He states he received a GI cocktail as well as sublingual nitroglycerin with partial palliation of the discomfort but he is not sure which one helped. At the time of my assessment he was noted to be hypertensive with systolic blood pressure readings of around 200 mmHg. He had been seen by his primary care physician recently and his systolic blood pressure was in the 150s initially, but improved on subsequent measurement. His home medications include diltiazem, telmisartan, and rosuvastatin. Family History: He describes a family history of heart disease in both of his parents His father had multiple coronary stents and ultimately at the age of 83 His mother suddenly of a myocardial infarction at the age of 78. Social History: Non-smoker, does use smokeless tobacco he is and is accompanied by his spouse. 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 Allergies Allergy/AdvReac Type Severity Reaction Status Date / Time cefuroxime [From Ceftin] Allergy Unknown Verified 10/13/20 10:44 clarithromycin Allergy Unknown Verified 10/13/20 10:44 prednisone AdvReac Severe Tachycardia Verified 10/13/20 10:44 Home Medications Medication Instructions Recorded Confirmed Type allopurinol 300 mg tablet 300 mg PO QAM 11/29/17 10/13/20 History diltiazem HCl 240 mg 240 mg PO QAM 11/29/17 10/13/20 History capsule,extended release 24 hr esomeprazole magnesium 20 mg 20 mg PO UD PRN 11/29/17 10/13/20 History capsule,delayed release (Nexium) telmisartan 80 mg tablet 80 mg PO QAM 11/29/17 10/13/20 History finasteride 5 mg tablet 5 mg PO Q2D #90 tab 10/14/18 10/13/20 Rx rosuvastatin 10 mg tablet 10 mg PO PM 01/24/19 10/13/20 History naproxen sodium 220 mg tablet 220 mg PO Q12H PRN 09/18/20 10/13/20 History (Aleve) omega-3 fatty acids 1,000 mg 1,000 mg PO 6XD 09/18/20 10/13/20 History capsule (Fish Oil Concentrate) turmeric 400 mg capsule 400 mg PO QAM 09/18/20 10/13/20 History vitamin E 200 unit tablet 90 mg PO QAM 09/18/20 10/13/20 History tramadol 50 mg tablet 50 mg PO BID PRN 10/13/20 10/13/20 History Patient History Medical History BPH (benign prostatic hyperplasia) Former smoker Gout Hyperlipidemia Hypertension IBS (irritable bowel syndrome) Surgical History History of cardiac cath 10-15 YRS AGO NO STENTS History of colonoscopy X 2-3 History of esophagogastroduodenoscopy (EGD) History of herniorrhaphy History of repair of rotator cuff R/L Family History Father Family history of diabetes mellitus Family/Other Family history of diabetes mellitus Mother Coronary heart disease fatal [place] age 78 Social History Tobacco Type: Smokeless Tobacco (Dip or Chew) Second Hand Exposure: No; Hx Alcohol Use: Yes (2 beers a day) Alcohol type: beer Hx Substance Use: No Preferred Language: Indonesian Communication Ability: Effective Special Needs Child Caregiver Required: No Beliefs That Will Affect Care: None Current Living Situation: Spouse Feels Safe at Home: Yes Assistive Devices: Glasses Review of Systems Review of Systems: All systems reviewed & are unremarkable except as noted in HPI & below Physical Exam Physical Exam: Temp Pulse Resp BP Pulse Ox 36.9 C 59 L 23 210/115 H 97 10/13/20 09:30 10/13/20 15:30 10/13/20 15:30 10/13/20 15:30 10/13/20 15:30 Constitutional: WD/WN, vitals as above Respiratory: normal respiratory effort, lungs clear to auscultation Cardiovascular: RRR, no murmur, no edema Gastrointestinal (Abdomen): normal bowel sounds, soft, nontender, no hepatosplenomegaly Neurologic: PERRL, EOMI, accommodation nl, no face palsy, no dysarthria Results & Data ([facility]) Vital Signs (Past 12 Hours) Vital Signs Temp Pulse Pulse Resp BP BP Pulse Ox 10/13/20 15:30 59 L 23 210/115 H 97 10/13/20 15:00 58 L 15 185/97 H 95 10/13/20 14:30 57 L 23 166/70 H 97 10/13/20 14:01 59 L 19 186/104 H 98 10/13/20 13:30 58 L 18 160/91 H 96 10/13/20 13:00 55 L 23 159/88 H 96 10/13/20 12:30 55 L 22 178/85 H 97 10/13/20 12:00 55 L 55 L 16 155/85 H 155/85 H 97 10/13/20 11:46 59 L 61 16 188/103 H 188/103 H 97 10/13/20 10:58 58 L 16 172/84 H 97 10/13/20 09:30 36.9 C 66 20 179/87 H 96
[2020-10-13] MEDS ORDERED: LORazepam 1 MG/2 ML VIAL IV STA (17:04)
[2020-10-13] MEDS ORDERED: ACETAMINOPHEN 325 MG TAB PO PRN (18:50)
[2020-10-13] MEDS ORDERED: POLYETHYLENE (MIRALAX) 17 GM PACK PO PRN (18:50)
[2020-10-13] MEDS ORDERED: traMADol HCL 50 MG TABLET PO PRN (18:50)
[2020-10-13] MEDS ORDERED: PANTOprazole 40 MG TAB PO PRN (18:50)
[2020-10-13] MEDS ORDERED: ROSUVASTATIN CALCIUM 10 MG TAB PO SCH (21:00)
[2020-10-13] MEDS: FAMOTIDINE 10 MG TABLET PO SCH (22:03)
[2020-10-13] MEDS: HEPARIN SOD 5,000 UNIT/0.5 ML VIAL SQ SCH (22:04)
[2020-10-13] MEDS ORDERED: MELATONIN 3 MG TAB PO PRN (23:11)
[2020-10-14 07:39] LABS: Hematocrit (blood only) 43.6 % (42-52); Hemoglobin 15.1 g/dL (14.0-18.0); Mean Corpuscular Hemoglobin 33.6 pg (25-34); Mean Corpuscular Hgb Conc 34.6 g/dL (32-36); Mean Corpuscular Volume 97.1 fL (80-100); Mean Platelet Volume 10.9 fL (7.4-10.4); Platelet Count 162 K/uL (130-400); RDW Standard Deviation 45.8 fL (36.4-46.3); Red Blood Count 4.49 M/uL (4.7-6.1); White Blood Count 4.99 K/uL (4.8-10.8)
[2020-10-14] MEDS: FAMOTIDINE 10 MG TABLET PO SCH (08:18)
[2020-10-14] MEDS: HEPARIN SOD 5,000 UNIT/0.5 ML VIAL SQ SCH ×2 (08:18→08:25)
[2020-10-14 08:20] LABS: BUN Creatinine Ratio 14.6 (10-20); Calcium 9.3 mg/dl (8.5-10.1); Creatinine Clr Calc Pharmacy 81.6 ml/min; Est GFR (African American) 84.9 ml/min; Est GFR (Non-African American) 73.3 ml/min; Potassium 4.5 mmol/L (3.5-5.1)
[2020-10-14] MEDS ORDERED: ASPIRIN 81 MG ECTAB PO SCH (09:00)
[2020-10-14] MEDS ORDERED: dilTIAZem HCL 240 MG CAPCR PO SCH (09:00)
[2020-10-14] MEDS ORDERED: allopurinoL 300 MG TAB PO SCH (09:00)
[2020-10-14] MEDS ORDERED: TELMISARTAN 40 MG TAB PO SCH (09:00)
[2020-10-14] MEDS ORDERED: ASPIRIN 81 MG CHEW PO ONE (09:15)
--- NOTE | 2020-10-14 09:20 | Cardiology Progress Note ---
Date of Service October 14, 2020 Assessment & Plan (1) Chest pain: Plan: EKG tracings performed 10/13 revealed sinus rhythm with nonspecific T wave inversion in the inferior leads III and aVF. This however has been relatively unchanged compared to her prior tracing dating back to 2019. Repeat tracing 10/14 is normal. Troponin I undetectable x3. Resting echocardiogram reveals normal wall motion. Normal LVEF. LVH and grade II diastolic dysfunction noted. After further discussion with patient will likely proceed with cardiac catheterization later this am. Continue ASA, statin. 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 (3) Hyperlipidemia: Plan: Continue rosuvastatin. Admission and Anticipated Discharge Date Admission Date: October 13, 2020 Subjective Patient seen in follow up. Had a restless night on the noisy telemetry flow. Vague mild left sided chest pain persists. Telemetry reveals SR in the 50s to 60s. BP still above goal, however improved. Review of Systems Review of Systems: All systems reviewed & are unremarkable except as noted in HPI & below Physical Exam Physical Exam: Temp Pulse Resp BP Pulse Ox 36.9 C 59 L 23 210/115 H 97 10/13/20 09:30 10/13/20 15:30 10/13/20 15:30 10/13/20 15:30 10/13/20 15:30 Constitutional: WD/WN, vitals as above Respiratory: normal respiratory effort, lungs clear to auscultation Cardiovascular: RRR, no murmur, no edema Gastrointestinal (Abdomen): normal bowel sounds, soft, nontender, no hepatosplenomegaly Neurologic: PERRL, EOMI, accommodation nl, no face palsy, no dysarthria Results & Data ([facility]) Vital Signs (Past 12 Hours) Vital Signs Temp Pulse Pulse Pulse Resp BP Pulse Ox 10/14/20 07:40 36.5 C 64 16 160/88 H 94 10/14/20 07:23 57 L 10/14/20 04:32 36.5 C 56 L 18 136/70 95 10/14/20 00:59 62 10/14/20 00:02 36.5 C 60 18 164/85 H 94 10/13/20 23:58 36.5 C 60 18 164/85 H 94 Laboratory Results Cardiac Enzymes 10/13/20 10/13/20 10/13/20 Range/Units 09:35 11:38 19:18 AST 71 H (15-37) U/L Troponin I < 0.015 < 0.015 < 0.015 (0-0.045) ng/ml 10/14/20 Range/Units 00:18 AST (15-37) U/L Troponin I < 0.015 (0-0.045) ng/ml Coagulation 10/13/20 Range/Units 09:35 PT 10.6 (9.0-12.0) Seconds APTT 29.7 (21.0-31.0) Seconds Lipids 10/14/20 Range/Units 07:01 Triglycerides 143 (0-150) mg/dl Cholesterol 132 (0-200) mg/dl HDL Cholesterol 37 mg/dl Cholesterol/HDL Ratio 4 CBC 10/13/20 10/14/20 Range/Units 09:35 07:01 WBC 4.79 L 4.99 (4.8-10.8) K/uL RBC 4.33 L 4.49 L (4.7-6.1) M/uL Hgb 14.6 15.1 (14.0-18.0) g/dL Hct 42.1 43.6 (42-52) % Plt Count 157 162 (130-400) K/uL Neut # (Auto) 2.96 (1.4-6.5) K/uL Lymph # (Auto) 1.31 (1.2-3.4) K/uL [place] # (Auto) 0.40 (0.11-0.59) K/uL Eos # (Auto) 0.08 (0-0.5) K/uL Baso # (Auto) 0.02 (0-0.2) K/uL Comprehensive Metabolic Panel 10/13/20 10/14/20 Range/Units 09:35 07:01 Sodium 137 138 (136-145) mmol/L Potassium 3.9 4.5 D (3.5-5.1) mmol/L Chloride 103 108 H (98-107) mmol/L Carbon Dioxide 25 24 (21-32) mmol/L BUN 13 16 (7-18) mg/dl Creatinine 1.05 1.06 (0.6-1.4) mg/dl Glucose 152 H 160 H (70-99) mg/dl Calcium 9.4 9.3 (8.5-10.1) mg/dl AST 71 H (15-37) U/L ALT 148 H (12-78) U/L Alkaline Phosphatase 65 (45-117) U/L Total Protein 7.9 (6.4-8.2) gm/dl Albumin 4.2 (3.4-5.0) gm/dl Intake and Output 10/13/20 10/14/20 10/14/20 22:59 06:59 14:59 Intake Total 0 / 0 Balance 0 / 0 Intake: Oral 0 / 0 Other: Weight 94.6 kg Weight Measurement Method Standing Scale
[2020-10-14] MEDS ORDERED: SODIUM CHLORIDE 0.9% 1000ML 1,000 ML IV SCH (09:30)
[2020-10-14 09:51] LABS: Estimated Average Glucose 157 mg/dl; Hemoglobin A1C 7.1 % (4.5-5.6)
[2020-10-14] MEDS ORDERED: fentaNYL citrate 100 MCG/2 ML VIAL ONE (10:07)
[2020-10-14] MEDS ORDERED: HEPARIN (PORCINE) 1000 UNIT/ML 10 ML (CATH LAB USE ONLY) ONE (10:07)
[2020-10-14] MEDS ORDERED: MIDAZOLAM HCL 1 MG/ML 2ML VIAL ONE (10:07)
[2020-10-14] MEDS ORDERED: NITROGLYCERIN/D5W 100MCG/ML 20ML SYR ONE (10:07)
[2020-10-14] MEDS ORDERED: niCARdipine HCL INJ 2.5 MG/ML 10 ML AMP ONE (10:07)
--- NOTE | 2020-10-14 10:16 | Pre Anesthesia Assessment ---
Date of Service October 14, 2020 Pre Sedation Assessment Vital Signs Temp Pulse Pulse Pulse Resp BP BP 10/14/20 07:40 36.5 C 64 16 160/88 H 10/14/20 07:23 57 L 10/14/20 04:32 36.5 C 56 L 18 136/70 10/14/20 00:59 62 10/14/20 00:02 36.5 C 60 18 164/85 H 10/13/20 23:58 36.5 C 60 18 164/85 H 10/13/20 19:25 36.6 C 64 18 168/80 H 10/13/20 18:38 37 C 65 16 146/87 H 10/13/20 17:47 59 L 18 165/85 H 10/13/20 15:30 59 L 23 210/115 H 10/13/20 15:00 58 L 15 185/97 H 10/13/20 14:30 57 L 23 166/70 H 10/13/20 14:01 59 L 19 186/104 H 10/13/20 13:30 58 L 18 160/91 H 10/13/20 13:00 55 L 23 159/88 H 10/13/20 12:30 55 L 22 178/85 H 10/13/20 12:00 55 L 55 L 16 155/85 H 155/85 H 10/13/20 11:46 59 L 61 16 188/103 H 188/103 H 10/13/20 10:58 58 L 16 172/84 H Pulse Ox 10/14/20 07:40 94 10/14/20 07:23 10/14/20 04:32 95 10/14/20 00:59 10/14/20 00:02 94 10/13/20 23:58 94 10/13/20 19:25 97 10/13/20 18:38 97 10/13/20 17:47 98 10/13/20 15:30 97 10/13/20 15:00 95 10/13/20 14:30 97 10/13/20 14:01 98 10/13/20 13:30 96 10/13/20 13:00 96 10/13/20 12:30 97 10/13/20 12:00 97 10/13/20 11:46 97 10/13/20 10:58 97 Cardiovascular + regular rate and + regular rhythm + S1 normal, + S2 normal and + murmur (soft, 1/6 ELPIDIO); no rub + radial pulses present; no JVD Respiratory normal respiratory effort, lungs clear to auscultation Pre-Sedation Airway Assessment Smoking Status: Never smoker 3 NPO Status Date of Last Intake of Fluids: 10/13/20 Date of Last Intake of Solid Food: 10/13/20 Procedure Planning Contraindications for Sedation: none Current Medications Reviewed: Yes Notes The planned sedation has been discussed with the patient. Informed Consent was obtained. I have identified the patient, determined the appropriateness of sedation and have assessed the patient immediately prior to the procedure. All medicine(s) and interventions are by my order.
--- NOTE | 2020-10-14 11:20 | Post Anesthesia Assessment ---
Date of Service October 14, 2020 Post Sedation Assessment Vital Signs Temp Pulse Pulse Pulse Resp BP BP 10/14/20 10:48 55 L 20 175/55 H 10/14/20 07:40 36.5 C 64 16 160/88 H 10/14/20 07:23 57 L 10/14/20 04:32 36.5 C 56 L 18 136/70 10/14/20 00:59 62 10/14/20 00:02 36.5 C 60 18 164/85 H 10/13/20 23:58 36.5 C 60 18 164/85 H 10/13/20 19:25 36.6 C 64 18 168/80 H 10/13/20 18:38 37 C 65 16 146/87 H 10/13/20 17:47 59 L 18 165/85 H 10/13/20 15:30 59 L 23 210/115 H 10/13/20 15:00 58 L 15 185/97 H 10/13/20 14:30 57 L 23 166/70 H 10/13/20 14:01 59 L 19 186/104 H 10/13/20 13:30 58 L 18 160/91 H 10/13/20 13:00 55 L 23 159/88 H 10/13/20 12:30 55 L 22 178/85 H 10/13/20 12:00 55 L 55 L 16 155/85 H 155/85 H 10/13/20 11:46 59 L 61 16 188/103 H 188/103 H Pulse Ox 10/14/20 10:48 99 10/14/20 07:40 94 10/14/20 07:23 10/14/20 04:32 95 10/14/20 00:59 10/14/20 00:02 94 10/13/20 23:58 94 10/13/20 19:25 97 10/13/20 18:38 97 10/13/20 17:47 98 10/13/20 15:30 97 10/13/20 15:00 95 10/13/20 14:30 97 10/13/20 14:01 98 10/13/20 13:30 96 10/13/20 13:00 96 10/13/20 12:30 97 10/13/20 12:00 97 10/13/20 11:46 97 Recovery Score Activity: Moves 4 extremities Respiration: Deep Breath/Cough Circulation: +/-20% PreAnes Value Consciousness: Arouseable (by name) Oxygen Saturation: > 92% On Room Air Discharge Sedation Level of Care: Phase I Post Sedation Plan On clinical assessment, the patient appears to have tolerated the sedation without complications. Patient is recovering as anticipated. Patient will continue to be monitored by nursing and may be discharged when sedation discharge criteria are met per below protocol. Upon Completions of procedure up to 15 minutes continue every 5 minute vital signs and the P.A.R. score; then discharge to a Phase I or Fast Track to Phase II per the following guidelines: * Discharge Patient to appropriate Phase II area if PAR is 8 or greater or return to pre- procedure baseline. The post - procedure orders will be as directed. * If PAR score is less than 8 or not return to pre-procedure baseline then patient will follow Phase I monitoring till PAR is reached for Phase II. The Phase I may be done in procedure room or may call to secure a Phase I area. * If naloxone or flumazenil are used for reversal, hold in Phase I for continued monitoring from when last reversal dose was given for a minimum of 60 minutes or longer pending the nurse and/or physician discretion of patient condition before discharge to Phase II. Please call the Sedation Physician to re-evaluate and complete post-note for discharge to Phase II area. Do NOT discharge from procedure sedation or Phase 1 until post- sedation evaluation note is complete by procedure /sedation MD Sedation Discharge Instructions to be given to the patient at discharge to home.
--- NOTE | 2020-10-14 11:31 | Cardiac Catheterization ---
Cardiac Cath Procedure Full Procedure Date October 14, 2020 Pre-Procedure Diagnosis Pre-Procedure Diagnosis: Angina AUC Score AUC Score: 7 Post-Procedure Diagnosis Post-Procedure Diagnosis: Mild CAD Procedure(s) Performed Procedure(s) Performed: Coronary Angiography and Left Heart Cath Tire Finisher Dru Espinal DO Pc Support Specialist(s) Jaylenr PRODUCE DEPARTMENT MANAGER Estimated Blood Loss Estimated Blood Loss: 5cc Medication(s) Medication(s): Fentanyl, Heparin, Lidocaine 1%, Nicardipine, Nitroglycerin and Versed Summary of Findings Minimal nonobstructive coronary disease with a 10% mid LAD stenosis and 20% ostial RCA taper. Hemodynamics Rest Ao:: 126/68/97 Final Ao: 146/68/96 LV: 140/0/11 Recommendations Recommendations: Medical Therapy and/or Counseling Specimens Specimens: None Radiation Exposure (mGy) 791 Contrast (mls) 45 Fluids (cc crystalloids) Fluids (cc crystalloids): 140 Drains Drains: N/A Anesthesia Moderate sedation. Start 1053. End 1113. Sedation monitor: Shaylee CASTORENA. Procedural Complication(s) None Disposition Spa Director Holding/Recovery I attest to the content of the Intraoperative Record and any orders documented therein. Any exceptions are noted below. ACC Data: Spa Director Cardiac Status 65-year-old patient presented to the hospital with chest discomfort. Due to ongoing discomfort, risk factors, and family history, coronary angiography recommended for definitive diagnosis. CAD Presenation: Unstable angina Anginal Classification: CCS IV Heart Failure: No Cardiogenic Shock within 24 Hours: No Cardiac Arrest within 24 Hours: No Imaging Studies Past 6 Months: Yes Stress Studies Past 6 Months: Yes Standard Exercise Test: Yes - Negative Stress Echocardiogram: No Stress Testing w/SPECT MPI: No Cardiac CTA: No Coronary Anatomy Dominant: Right Left Main (% Stenosis): Normal LAD (% Stenosis): Mid (10%) D1 (% Stenosis): Normal Circumflex (% Stenosis): Normal OM1 (% Stenosis): Normal (1mm vessel) OM2 (% Stenosis): Normal L PL1 (% Stenosis): Normal L PL2 (% Stenosis): Normal RCA (% Stenosis): Ostial (20% taper) R PDA (% Stenosis): Normal R PL1 (% Stenosis): Normal Ramus (% Stenosis): Normal Diagnostic Physicians Name: Dru Espinal DO Closure Device Recommendations: Medical Therapy and/or Counseling Intraprocedure Events Significant Disection: No Perforation: No
--- NOTE | 2020-10-14 13:59 | Communication Note ---
Date of Service: October 14, 2020 Patient reassessed in the post catheterization recovery area. He tolerated the procedure well, with right radial access. Mild non obstructive CAD noted. LDL was 66 mg/dl on lipid panel this am. Pt stable for discharge from a cardiac perspective after he completes post cath recovery. 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
[2020-10-14] MEDS ORDERED: DOXAZOSIN MESYLATE 1 MG TAB PO STA (14:05)
--- NOTE | 2020-10-14 14:49 | Hospitalist Progress Note ---
Date of Service October 14, 2020 Assessment & Plan (1) Chest pain: Plan: Patient is a 65 yr male with H/O HTN, HLD, BPH, gout presented to ER with complaint of a intermittent chest pain and SOB with exertion x 3 days. 3 days sensation tachycardia while working outside. Reports history of negative stress test at [place] in 04/2020. Reports history normal cardiac cath greater than 10 years ago. Chest Pain Ruled out ACS Likely secondary to uncontrolled HTN S/P Cardiac Cath: Minimal nonobstructive coronary disease with a 10% mid LAD stenosis and 20% ostial RCA taper. Negative Troponin ECHO: Mild concentric LVH. Left ventricle wall motion is normal. EF 60 to 65%. Diastolic dysfunction, grade 2. No significant valvular heart disease. Appreciate Cardiology Input (2) HTN (hypertension): Plan: Uncontrolled HTN Continue diltiazem, telmisartan Added HCTZ, doxazosin Diabetes Mellitus H/O Prediabetes HbA1C: 7.1 Prefers to be started on Metformin Advised lifestyles changes Prefers to be discharged today and follow up with PCP (3) Hyperlipidemia: Plan: -Continue rosuvastatin (4) BPH (benign prostatic hyperplasia): Plan: -Continue finasteride (5) Gout: Plan: -Continue allopurinol DVT Prophylaxis -Heparin SQ Code Status Full Code Admission and Anticipated Discharge Date Admission Date: October 13, 2020 Subjective Patient is seen and examined at bedside Patient is doing well post cardiac Cath Discussed with cardiology Chest pain resolved Denies dizziness, nausea, dyspnea, abdominal pain Offers no other complaints Review of Systems Review of Systems: All systems reviewed & are unremarkable except as noted in Subjective Physical Exam Physical Exam: Physical Exam: Vitals signs as noted above General Appearance:Moderately built and nourished, no apparent distress Head: normocephalic, Atraumatic Eyes: normal inspection, EOMI Neck: supple, Trachea midline Respiratory/Chest: Normal breath sounds, CTA, No accessory muscle use Cardiovascular: S1, S2, No murmur Abdomen/GI:Soft, Non tender, Bowel sounds present Extremities/Musculoskeletal:normal inspection, no edema Neurologic/Psych:AAOX3, grossly no focal neurological deficits Skin: normal color, warm Results & Data Results & Data ([facility]) Vital Signs (Past 12 Hours) Vital Signs Temp Pulse Pulse Pulse Resp BP Pulse Ox 10/14/20 14:15 56 L 20 155/85 H 92 10/14/20 14:00 56 L 20 159/88 H 92 10/14/20 13:45 55 L 20 164/86 H 92 10/14/20 13:30 57 L 20 155/90 H 92 10/14/20 13:15 57 L 20 164/88 H 92 10/14/20 12:50 60 20 141/81 H 92 10/14/20 12:35 56 L 18 135/78 92 10/14/20 12:05 66 20 125/64 92 10/14/20 11:50 59 L 18 150/78 H 99 10/14/20 11:35 59 L 18 150/77 H 99 10/14/20 11:20 52 L 18 153/80 H 99 10/14/20 10:48 55 L 20 175/55 H 99 10/14/20 07:40 36.5 C 64 16 160/88 H 94 10/14/20 07:23 57 L 10/14/20 04:32 36.5 C 56 L 18 136/70 95 Laboratory Results Short CBC 10/14/20 Range/Units 07:01 WBC 4.99 (4.8-10.8) K/uL Hgb 15.1 (14.0-18.0) g/dL Hct 43.6 (42-52) % Plt Count 162 (130-400) K/uL BMP 10/14/20 07:01 Sodium 138 Potassium 4.5 D Chloride 108 H Carbon Dioxide 24 BUN 16 Creatinine 1.06 Glucose 160 H Calcium 9.3 Cardiac Enzymes 10/13/20 10/14/20 Range/Units 19:18 00:18 Troponin I < 0.015 < 0.015 (0-0.045) ng/ml
--- NOTE | 2020-10-14 14:59 | Discharge Summary ---
Date of Service October 14, 2020 Admission HPI Per Admitting Provider Pt is 65 y/o M with PMH HTN, HLD, BPH, gout presented to ER with complaint of a intermittent chest pain x 3 days. Patient states 3 days ago was mowing and trimming tree when he had sensation of fast heartbeat. He reports he went to the house took a shower and tried to relax and his heart beat returned to normal sensation. Patient states will have some mid chest discomfort and shortness of breath intermittently with exertion. States this morning having chest discomfort and did not feel well overall. Patient also states intermittent left upper arm pain, he is unsure if this occurs with chest pain. 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 Currently patient denies any chest discomfort or shortness of breath. Chronic neck pain, denies any change. Reports history of negative stress test at [place] in 04/2020. Reports history normal cardiac cath greater than 10 years ago. Denies fever/chills, diaphoresis, N/V/D/C, CABRERA, dizziness, syncope, vision changes, orthopnea, palpitations, cough, sore throat, choking, otalgia, rhinorrhea, abdominal pain, paresthesias, weakness, extremity weakness, extremity edema, leg pain, rashes, urinary symptoms. In ER afebrile, P: 66, R: 20, BP 179/87, 96% on room air. Negative initial t roponin, EKG sinus rhythm, incomplete RBBB (incomplete RBBB seen in prior EKGs). In ER was given 324 mg aspirin, nitro x1, GI cocktail. Denies any current chest pain or shortness of breath. Admission Exam Per Admitting Provider Physical Exam Physical Exam: General: no distress, WDWN Head: normocephalic, atraumatic Eyes: PERRL, EOM's intact, conjunctiva non-injected, anicteric ENT: normal inspection external ears, nose, mucous membranes moist Neck: supple, trachea midline Lungs: clear, no respiratory distress, no wheezing/rhonchi/rales CV: RRR, no murmur, no JVD, no pretibial edema; chest wall without rashes, mild tenderness to palpation left sternal border Abd: normal BS, soft, non-tender Ext: no cyanosis, no calf tenderness Neuro: A&O x 3, no focal deficits noted, normal affect Skin: warm, dry Principal Diagnosis Chest pain Nonobstructive coronary artery disease Uncontrolled hypertension Diabetes mellitus--New diagnosis Discharge Data Allergies Allergy/AdvReac Type Severity Reaction Status Date / Time cefuroxime [From Ceftin] Allergy Unknown Verified 10/13/20 10:44 clarithromycin Allergy Unknown Verified 10/13/20 10:44 prednisone AdvReac Severe Tachycardia Verified 10/13/20 10:44 Consultations 10/13/20 13:41 ED Decision to Admit Stat 10/13/20 14:29 Consult Cardiology Routine Procedures Performed Operation Date: 10/14/20 10:30 Actual Procedures p Cath, Left with Cors and Garland - Dru O DO Kylie Ordered Studies 10/14/20 10:03 CL Cath Imgs for PACS use only Routine Hospital Course (1) Chest pain: Patient is a 65 yr male with H/O HTN, HLD, BPH, gout presented to ER with complaint of a intermittent chest pain and SOB with exertion x 3 days. 3 days sensation tachycardia while working outside. Reports history of negative stress test at [place] in 04/2020. Reports history normal cardiac cath greater than 10 years ago. Chest Pain Ruled out ACS Likely secondary to uncontrolled HTN S/P Cardiac Cath: Minimal nonobstructive coronary disease with a 10% mid LAD stenosis and 20% ostial RCA taper. Negative Troponin ECHO: Mild concentric LVH. Left ventricle wall motion is normal. EF 60 to 65%. Diastolic dysfunction, grade 2. No significant valvular heart disease. Appreciate Cardiology Input (2) HTN (hypertension): Uncontrolled HTN Continue diltiazem, telmisartan Added HCTZ, doxazosin Diabetes Mellitus H/O Prediabetes HbA1C: 7.1 Prefers to be started on Metformin Advised lifestyles changes Prefers to be discharged today and follow up with PCP (3) Hyperlipidemia: -Continue rosuvastatin (4) BPH (benign prostatic hyperplasia): -Continue finasteride (5) Gout: -Continue allopurinol DVT Prophylaxis -Heparin SQ Code Status Full Code Total Time Total Time Spent Total Time Spent (In Minutes): 32 minutes Discharge Plan Discharge Items Patient Disposition: Home - Self-Care Reason For Visit: CP Discharge Diagnosis: Chest pain Nonobstructive coronary artery disease Uncontrolled hypertension Diabetes mellitus--New diagnosis Activity: Per Instructions section Exercise/Sports: Gradually increase as tolerated Non-emergency contact: Primary Care Provider and Clearance Coordinator Call non-emergency contact if: you have any medication questions, your symptoms worsen, your pain is concerning for you and you have a fever Follow-up/Referrals: Claudy Bui [Primary Care Provider] - Diet: Carb Consistent or DM2 and Heart Healthy Addtl Attending Provider Instructions: Follow-up with your primary care physician in 1 week as advised Follow-up with your travel registered nurse nicu in 2-4 weeks as advised Discussed with your primary care physician for further adjustment of your medications for diabetes management as advised. Seek immediate medical attention if your symptoms reoccur or worsen Please take all medications as instructed on discharge list below. Please call if you have any questions or problems. You can reach a [facility] hospitalist on duty at [facility] 24 hours a day by calling [phone] ACTIVITY RECOMMENDATIONS: Excess manipulation of the wrist should be avoided for the next 24-48 hours. * No lifting over 2 pounds (approximately a 1/2 gallon of milk) with the utilized arm for 24 hours. * No strenuous activity such as bowling or tennis for 3 days. * Keep the site of the procedure covered with a bandage for 24 hours. *You may shower the day after the procedure. Do not take a tub bath or submerge the puncture site in water for the next 3 days. *Do not operate any motorized equipment for 3 days. SPECIAL CARE INSTRUCTIONS: The site may be slightly bruised and sore following your procedure. Should any of the following occur, contact the Dr. who performed your procedure. 1. Redness/inflammation, swelling, chills, or fever, or colored drainage at procedure site within 3-7 days after your procedure. 2. Coldness, discoloration, ongoing numbness, severe pain, or swelling. Expect mild tingling of hand and tenderness at the puncture site for up to three days. If this persists beyond three days, or other symptoms develop, notify the Dr. who performed your procedure. BLEEDING: If the procedure site on your wrist begins to bleed, do not panic 1. Place 1 or 2 fingers firmly just slightly above the insertion site to stop the bleeding. You may be able to feel your pulse as you hold pressure. 2. Lift your finger after 5 minutes to see if the bleeding has stopped. 3. Once the bleeding has stopped, gently wipe the wrist area clean with a bandage. * If the bleeding from your wrist does not stop after 10 minutes, or if there is a large amount of bleeding or spurting, call 911 (do not drive yourself to the hospital). SKIN IRRITATION: * You may experience some redness and/or swelling in the area where radiation was administered. If any skin irritation occurs, please contact your family physician. FOLLOW UP VISIT: Keep any scheduled doctor appointments. Addtl Manager Room Provider Instructions: Add aspirin enteric-coated 81 mg daily, and hydrochlorothiazide 12.5 mg daily in the morning and doxazosin 1 mg by mouth daily at bedtime to medication regimen at time of discharge. Pending Studies at Discharge: No Stand-Alone Forms: Anesthesia/Sedation, Adult, [facility], Smoking Cessation Medications and DC Order Prescriptions: New doxazosin [Cardura] 1 mg Tablet 1 mg PO HS Qty: 30 RF: 0 aspirin 81 mg Tablet,Delayed Release (Dr/Ec) 81 mg PO QAM Qty: 30 RF: 0 hydrochlorothiazide 25 mg Tablet 12.5 mg PO QAM Qty: 30 RF: 0 metformin 850 mg tablet 850 mg PO DAILY Qty: 30 RF: 0 Continued finasteride 5 mg tablet 5 mg PO Q2D Qty: 90 RF: 3 diltiazem HCl 240 mg Capsule,Extended Release 24hr 240 mg PO QAM RF: 0 telmisartan 80 mg Tablet 80 mg PO QAM RF: 0 allopurinol 300 mg Tablet 300 mg PO QAM RF: 0 esomeprazole magnesium [Nexium] 20 mg Capsule,Delayed Release(Dr/Ec) 20 mg PO UD PRN (Reason: Acid Reflux) RF: 0 rosuvastatin 10 mg tablet 10 mg PO PM RF: 0 omega-3 fatty acids [Fish Oil Concentrate] 1,000 mg Capsule 1,000 mg PO 6XD RF: 0 vitamin E 200 unit Tablet 90 mg PO QAM RF: 0 turmeric 400 mg Capsule 400 mg PO QAM RF: 0 tramadol 50 mg tablet 50 mg PO BID PRN (Reason: Pain) RF: 0 Discontinued naproxen sodium [Aleve] 220 mg Tablet 220 mg PO Q12H PRN (Reason: Back Pain) RF: 0 Discharge Orders: Discharge Order (Routine); Ordered 10/14/20 Ordered By: Tim Sanchez/Other Patient Handouts: High Blood Sugar (Hyperglycemia), Hypoglycemia (Low Blood Sugar), Exercise to Manage Your Blood Sugar, 5 Steps for Eating Healthier, Diabetes: Meal Planning, Type 2 Diabetes Admission Data Admit Date/Time: 10/13/20 13:46 Attending Provider: Tim Urias Admit Provider: Tim Urias Primary Care Provider: Claudy Bui Other Providers: Kayode Crane ; Tim Urias Other Interventions: Discharge Summary Assessment (RN) Last Done: 10/14/20 15:45
[2020-10-14] MEDS ORDERED: FINASTERIDE 5 MG TAB PO SCH (21:00)
[2020-10-15] MEDS ORDERED: hydroCHLOROthiazide 25 MG TAB PO SCH (09:00)
--- NOTE | 2020-10-15 16:44 | Electrocardiogram Report ---
Test Reason : Blood Pressure : / mmHG Vent. Rate : 067 BPM Atrial Rate : 067 BPM P-R Int : 144 ms QRS Dur : 104 ms QT Int : 396 ms P-R-T Axes : 012 042 000 degrees QTc Int : 418 ms Normal sinus rhythm Incomplete right bundle branch block Borderline ECG When compared with ECG of 18-SEP-2020 09:11, No significant change was found Confirmed by Robert Herring ([id number]) on 10/15/2020 4:44:51 PM Referred By: REFERRED SELF Confirmed By:Robert Herring
--- NOTE | 2020-10-15 17:05 | Electrocardiogram Report ---
Test Reason : Blood Pressure : / mmHG Vent. Rate : 058 BPM Atrial Rate : 058 BPM P-R Int : 208 ms QRS Dur : 106 ms QT Int : 418 ms P-R-T Axes : 041 055 024 degrees QTc Int : 410 ms Sinus bradycardia Otherwise normal ECG When compared with ECG of 13-OCT-2020 09:33, (unconfirmed) Incomplete right bundle branch block is no longer Present Confirmed by Robert Herring ([id number]) on 10/15/2020 5:04:47 PM Referred By: REFERRED SELF Confirmed By:Robert Herring
[2020-10-15] MEDS ORDERED: DOXAZOSIN MESYLATE 1 MG TAB PO SCH (21:00)
== END 2020-10-14 15:45 | disposition home or self-care (01) ==
LOC: EDINP 09:16 → ED 09:16 → 2N 17:47
DX: M10.9 Gout, unspecified; Z88.8 Allergy status to other drugs, medicaments and biological substances; Z87.891 Personal history of nicotine dependence; E78.5 Hyperlipidemia, unspecified; N40.0 Benign prostatic hyperplasia without lower urinary tract symptoms; Z82.49 Family history of ischemic heart disease and other diseases of the circulatory system; E11.9 Type 2 diabetes mellitus without complications; Z79.899 Other long term (current) drug therapy; I10 Essential (primary) hypertension; I25.119 Atherosclerotic heart disease of native coronary artery with unspecified angina pectoris; Z88.1 Allergy status to other antibiotic agents

== ENCOUNTER 2023-12-16 13:00 | Observation (INO) ==
--- OUTSIDE RECORDS SUMMARY | 2023-12-16 13:07 | External Medical Summary ---
Author Name Unknown Address Unknown Organization [id number]:[facility] [place] [address] [place] [address] Laboratory Report Ordering Provider Test Date Status TRAVON CHING 08/27/2023 11:11:16 Final Observation Date Value Abnormality Reference (Units ) Status TSH 08/27/2023 11:11:16 0.98 0.27-4.20 (uIU/mL) Final Performing Location [facility] - [address] [place] [id number]
--- OUTSIDE RECORDS SUMMARY | 2023-12-16 13:07 | External Medical Summary | Summary of Care ---
Author Name Unknown Organization [facility] Address [address] [facility] [address] Phone [phone] Care Team Providers Care Dairy Husbandry Teacher Name Role Phone Chapito Ruelas Primary Care Provider Reason for Visit * Reason Onset Date Comments Test Results 11/29/2023 Encounter Details Date Type Department Care Team (Late st Contact Info) Description 11/29/2023 Telephone Cardiology, [facility] [address] [place] [address] Kayoed Crane, [address] [place] [address] Test Results Allergies Active Allergy Reactions Criticality Noted Date Comments Spironolactone 01/04/2022 Hyperkalemia, hyponatremia, hypercalcemia Doxazosin 01/02/2023 Significant fatigue Pollen 11/01/2020 Ragweed 11/01/2020 Hydrochlorothiazide 01/02/2023 hyponatremia Metoprolol Other (Please comment) 10/15/2023 Fatigue documented as of this encounter (statuses as of 12/03/2023) Medications Medication Sig Dispensed Refills Start Date End Date Status finasteride (PROSCAR) 5 MG Tablet Take 1 Tablet by mouth at bedtime. 0 01/07/2016 Active allopurinol (ZYLOPRIM) 300 MG Tablet Take 1 Tablet by mouth in the morning. 05/31/2018 Active traMADol (ULTRAM) 50 MG Tablet take 1 tablet by mouth twice a day if needed for pain 0 07/12/2018 Active Esomeprazole Magnesium 10 MG Oral Packet Take 10 mg by mouth daily before breakfast. Active dicyclomine (BENTYL) 10 MG Capsule Take 1 Cap by mouth 2 times a day. 180 Cap 1 03/06/2019 Active Additional Information Patient not taking.Reported on 01/16/2023 Aspirin EC 81 MG Oral Tablet Delayed ReleaseIndications: Coronary artery disease involving [place] heart without angina pectoris, unspecified vessel or lesion type One tablet by mouth every other day 30 Tab 11 11/01/2020 Active Rosuvastatin Calcium 10 MG Oral Tablet (Crestor)Indication s:Dyslipidemia, goal LDL below 70 Take 1 Tablet by mouth at bedtime. 30 Tab 11 11/01/2020 Active Hyoscyamine Sulfate 0.125 MG Oral Tablet (Levsin) Take by mouth 1 Tablet 2 times a day as needed for Cramping. 90 Tablet 1 11/08/2021 Active Additional Information Patient not taking.Reported on 01/16/2023 Jardiance 10 MG Oral Tablet Take 1 Tablet by mouth in the morning. 01/10/2023 Active LORazepam 1 MG Oral Tablet (Ativan) Take 1 Tablet by mouth 2 times a day as needed. 10/16/2022 Active Ondansetron HCl 4 MG Oral Tablet (Zofran) take 1 tablet by mouth every 6 hours for nausea 12/25/2022 Active Telmisartan 80 MG Oral Tablet (Micardis) Take 1 Tablet by mouth in the morning. Active hydrALAZINE HCl 25 MG Oral Tablet (Apresoline)Indicat ions:HTN, goal below 140/90 TAKE 1 TABLET IN THE MORNING, 1 TABLET AT NOON AND 1 TABLET BEFORE BEDTIME 270 Tablet 3 06/11/2023 Active amLODIPine Besylate 5 MG Oral Tablet (Norvasc)Indication s:HTN, goal below 140/90 TAKE 1 TABLET IN THE MORNING 90 Tablet 3 06/11/2023 Active Metoprolol Succinate ER 25 MG Oral Tablet Extended Release 24 Hour (toPROL XL) 1/2 tablet by mouth 2 times per day 90 Tablet 3 11/21/2023 Active documented as of this encounter (statuses as of 12/03/2023) Active Problems Problem Noted Date Diagnosed Date Urticaria 01/04/2000 HYPERTENSION NOS 08/01/1999 Gout 08/01/1999 PURE HYPERCHOLESTEROLEM 08/01/1999 Tobacco use disorder 08/01/1999 Von Willebrand's disease documented as of this encounter (statuses as of 12/03/2023) Immunizations Name Administration Dates Next Due Seasonal Influenza, Quadrivalent Hd (Fluzone Hd) 11/08/2021 documented as of this encounter Social History Tobacco Use Types Packs/Day Years Used Date Smoking Tobacco: Never Smokeless Tobacco: Current Snuff Alcohol Use Standard Drinks/Week Comments Yes 14 (1 standard drink = 0.6 oz pure alcohol) quit using alcohol (beer) 02/19-ETOH aggravated BP Utilities Answer Date Recorded Do you have trouble paying y our heating, water, or electric bill? (Adult - for ages 18 years and over) Not on file 08/07/2023 Is your family able to pay t he heat, water, or electric bill? (Household - for ages 0-17 years) Not on file 08/07/2023 Does your family have access to good internet? (Household - for ages 0-17 years) Not on file 08/07/2023 Social Connections Answer Date Recorded How often do you feel lonely or isolated from those around you? (Adult - for ages 18 years and over) Not on file 08/07/2023 Sex and Gender Information Value Date Recorded Sex Assigned at Not on file Gender Identity Not on file Sexual Orientation Not on file Job Start Date Occupation Industry Not on file Not on file Not on file documented as of this encounter Miscellaneous Notes * Telephone Encounter - Emily Mcmanus LPN - 12/03/2023 2:04 PM EDT Spoke with pt by phone. Gave information in this encounter. Pt denies worsening PVC, denies new symptoms. Will discuss at upcoming appointment. * Telephone Encounter - Agnes Barbosa PA-C - 12/03/2023 12:41 PM EDT EKG reviewed from 11/28/23. Poor scan, but it shows sinus rhythm with frequent PVCs, 71 bpm and incomplete RBBB. He is already on metoprolol succinate 12.5 mg twice daily, recommend to continue. Can discuss further at upcoming appointment. * Telephone Encounter - Aparna Renee CMA - 11/30/2023 9:02 AM EDT Scan can be found under Media tab scanned in under 11/28/23 - please review per patient request. * Telephone Encounter - Twin Dobbins OSA - 11/29/2023 3:53 PM EDT Person calling: Elías Relationship to patient: Self Phone/Fax to return call: [phone] Reason for call(brief): Test results Provider Name: Dr. Crane Detailed message to office: Pt calling to advise Dr. Crane of abnormal EKG result sent by his PCP. EKG results are under patient level scans, please advise. documented in this encounter Plan of Treatment Upcoming Encounters Date Type Department Care Team (Latest Contact Info) Description 01/07/2024 3:00 PM EST Office Visit Cardiology, [facility] [address] [place] [address] Agnes Barbosa PA-C [address] [place] [address] [place] [address] 02/26/2024 7:45 AM EST Hospital Encounter [facility], Operating Room [facility] [address] [phone] Jun Canseco MD [address] [address] 02/26/2024 7:45 AM EST - 02/26/2024 8:11 AM EST Surgery OR [facility], Operating Room [facility] [address] [place] [phone] Jun Canseco MD [address] [place] [address] LEFT EXTRACAPSULAR CATARACT REMOVAL WITH INTRAOCULAR LENS 03/04/2024 7:30 AM EST Hospital Encounter OR [facility], Operating Room [facility] [address] [place] [phone] Jun Canseco MD [address] [place] [address] 03/04/2024 7:30 AM EST - 03/04/2024 7:56 AM EST Surgery OR [facility], Operating Room [facility] [address] [place] [phone] Jun Canseco MD [facility] Heather Hicks [address] [place] [address] RIGHT EXTRACAPSULAR CATARACT REMOVAL WITH INTRAOCULAR LENS Scheduled Procedures Name Priority Associated Diagnoses Date/Ti me EXTRACAPSULAR CATARACT REMOVAL WITH INTRAOCULAR LENS Combined forms of age-related cataract of left eye 02/26/2024 7:45 AM EST EXTRACAPSULAR CATARACT REMOVAL WITH INTRAOCULAR LENS Combined forms of age-related cataract of right eye 03/04/2024 7:30 AM EST COLONOSCOPY FLEXIBLE PROXIMAL DIAGNOSTIC Recall History of colonic polyps Health Maintenance Due Date Last Done Comments Pneumococcal Vaccine: 65+ Years (1 of 2 - PCV) 09/28/1961 Depression Screening 1967 Albumin/Creatinine Ratio 09/28/1973 Hepatitis C Screening 09/28/1973 DTap/Tdap Vaccines (1 - Tdap) 09/28/1974 Cologuard 09/28/2000 Fecal Occult Blood Test 09/28/2000 Sigmoidoscopy 09/28/2000 Zoster Vaccines (1 of 2) 09/28/2005 COVID-19 Vaccine (1 - season) 2023 Influenza Vaccine (FLU shot) (#1) 2023 11/08/2021 GFR 08/26/2024 08/27/2023, 11/19, 03/06/2019, Additional history exists Diabetes Screening 08/26/2026 08/27/2023, 0 06/04/2023, 10/06/2022, Additional history exists Lipid Panel 11/08/2026 11/08/2021 Colonoscopy 06/03/2028 06/04/2023, 05/20, 12/03/2017 Colorectal Cancer Screening 06/03/2028 RETIRED - COLONOSCOPY-EVERY 5 YRS AGES 18-100 Discontinued 06/04/2023, 06/04/2023, 12/03/2017 HPV (Gardasil) Vaccine Aged Out No lo nger eligible based on patient's age to complete this topic Hepatitis B Vaccine Aged Out No longe r eligible based on patient's age to complete this topic MENINGOCOCCAL (MENACTRA/MENVEO) Aged Out No longer eligible based on patient's age to complete this topic documented as of this encounter Medical Devices Not on filedocumented as of this encounter Care Teams Dairy Husbandry Teacher Relationship Specialty Start Date End Date Chapito Ruelas CRNP [address] [place] [address] [place] [id number] PCP - General Nurse Practitioner 01/02/23 documented as of this encounter
--- OUTSIDE RECORDS SUMMARY | 2023-12-16 13:07 | External Medical Summary | Summary of Care ---
Author Name Unknown Organization [facility] Address [address] [facility] [place] [address] Phone [phone] Care Team Providers Care Political Cartoonist Name Role Phone Chapito Ruelas Primary Care Provider Reason for Visit * Reason Onset Date Comments Test Results 09/14/2023 Encounter Details Date Type Department Care Team (Late st Contact Info) Description 09/14/2023 Telephone Cardiology, [facility] [address] [facility] [place] [address] Agnes Barbosa PA-C [address] [place] [address] Test Results Allergies Active Allergy Reactions Criticality Noted Date Comments Spironolactone 01/04/2022 Hyperkalemia, hyponatremia, hypercalcemia Doxazosin 01/02/2023 Significant fatigue Pollen 11/01/2020 Ragweed 11/01/2020 Hydrochlorothiazide 01/02/2023 hyponatremia documented as of this encounter (statuses as of 10/15/2023) Medications Medication Sig Dispensed Refills Start Date [...] Tablet Delayed ReleaseIndications: Coronary artery disease involving [place] heart without angina pectoris, unspecified vessel or [...] Tablet Extended Release 24 Hour (toPROL XL) Take 0.5 Tablets by mouth in the morning. 45 Tablet 3 09/14/2023 Active documented as of this encounter (statuses as of 10/15/2023) Active Problems Problem Noted Date Diagnosed Date Urticaria 01/04/2000 HYPERTENSION NOS 08/01/1999 Gout 08/01/1999 PURE HYPERCHOLESTEROLEM 08/01/1999 Tobacco use disorder 08/01/1999 Von Willebrand's disease documented as of this encounter (statuses as of 10/15/2023) Immunizations Name Administration Dates Next Due Seasonal [...] encounter Miscellaneous Notes * Telephone Encounter - Agnes Barbosa PA-C - 10/15/2023 1:03 PM EDT He can stop metoprolol. We can discuss other medication options if palpitations worsen. * Telephone Encounter - Samaria Sher OSA - 10/15/2023 7:32 AM EDT Person calling: Pt Relationship to patient: self Phone/Fax to return call: [phone] Reason for call(brief): Medication Pharmacy: [facility] Provider Name: Agnes Barbosa Detailed message to office: Pt calling in. Since starting Metoprolol he has had increased fatigue. Symptom started soon after starting the medication. He is asking if he can stop the Metoprolol, or if a different medication could be prescribed. Please advise. Thank you. * Telephone Encounter - Agnes Barbosa PA-C - 09/14/2023 4:08 PM EDT Orders signed. * Telephone Encounter - Anila Gaffney CMA - 09/14/2023 3:56 PM EDT Patient agreeable to starting 12.5mg Metoprolol daily. Pt will follow up in 2 weeks for status check or sooner if having issues. Order pended with preferred pharmacy. * Telephone Encounter - Agnes Barbosa PA-C - 09/14/2023 3:36 PM EDT Recommend to start metoprolol succinate 12.5 mg daily due to palpitations if patient agreeable. * Telephone Encounter - Emily Mcmanus LPN - 09/14/2023 1:36 PM EDT Spoke with pt by phone. Pt does have episodes where he feels his heart racing. Occasionally he will become short of breath and/or dizzy with this episodes. Denies syncope/near syncope. Denies chest pain. * Telephone Encounter - Emily Mcmanus LPN - 09/14/2023 1:33 PM EDT ----- Message from Agnes Barbosa sent at 09/14/2023 1:28 PM EDT ----- Zio with average heart rate 70 bpm. A few episodes of fast heart rates, but asymptomatic. Please check to see how the patient is feeling. documented in this encounter Plan of Treatment Upcoming Encounters Date Type Department Care Team (Late st Contact Info) Description 01/07/2024 3:00 PM EST Office Visit Cardiology, [facility] 132 [facility] [place] [address] Agnes Barbosa PA-C [address] [place] [address] Scheduled Procedures Name Priority Associated Diagnoses Date/Ti me COLONOSCOPY FLEXIBLE PROXIMA L DIAGNOSTIC Recall History of colonic polyps Health Maintenance Due Date Last Done Comments Pneumococcal Vaccine: 65+ Years (1 of 2 - PCV) 09/28/1961 Depression Screening 1967 Albumin/Creatinine Ratio 09/28/1973 Hepatitis C Screening 09/28/1973 DTaP,Tdap,and Td Vaccines (1 - Tdap) 09/28/1974 Cologuard 09/28/2000 Fecal Occult Blood Test 09/28/2000 Sigmoidoscopy 09/28/2000 Zoster Vaccines (1 of 2) 09/28/2005 COVID-19 Vaccine (1 - 2022- season) 2022 Influenza Vaccine (FLU shot) (#1) 2023 11/08/2021 [...] filedocumented as of this encounter Care Teams Political Cartoonist Relationship Specialty Start Date End Date Chapito Ruelas CRNP [address] [place] [place] [address] [place] [id number] PCP - General Nurse Practitioner 01/02/23 documented as of this encounter
--- OUTSIDE RECORDS SUMMARY | 2023-12-16 13:07 | External Medical Summary | Summary of Care ---
Author Name Unknown Organization [facility] Address [address] [facility] [address] Phone [phone] Care Team Providers Care Books Binder Name Role Phone Chapito Ruelas Primary Care Provider Reason for Visit * Reason Comments Outpatient Testing Encounter Details Date Type Department Care Team (Late st Contact Info) Description 08/27/2023 11:40 AM EDT Laboratory Laboratory, [facility] 132 [facility] [place] [phone] [facility] [place] [address] Chest pain; Dizziness Allergies Active Allergy Reactions Criticality Noted Date Comments Spironolactone 01/04/2022 Hyperkalemia, hyponatremia, hypercalcemia Doxazosin 01/02/2023 Significant fatigue Pollen 11/01/2020 Ragweed 11/01/2020 Hydrochlorothiazide 01/02/2023 hyponatremia documented as of this encounter (statuses as of 08/27/2023) Medications Medication Sig Dispensed Refills Start Date [...] Tablet Delayed ReleaseIndications: Coronary artery disease involving [place] heart without angina pectoris, unspecified vessel or [...] THE MORNING 90 Tablet 3 06/11/2023 Active documented as of this encounter (statuses as of 08/27/2023) Active Problems Problem Noted Date Diagnosed Date Urticaria 01/04/2000 HYPERTENSION NOS 08/01/1999 Gout 08/01/1999 PURE HYPERCHOLESTEROLEM 08/01/1999 Tobacco use disorder 08/01/1999 Von Willebrand's disease documented as of this encounter (statuses as of 08/27/2023) Immunizations Name Administration Dates Next Due Seasonal [...] on file documented as of this encounter Plan of Treatment Upcoming Encounters Date Type Department Care Team (Late st Contact Info) Description 09/03/2023 3:00 PM EDT Cardiac Studies Cardiac Studies, [facility] [address] [facility] [place] [address] 01/07/2024 3:00 PM EST Office Visit Cardiology, [facility] 132 [facility] [place] [address] Agnes Barbosa PA-C [address] [place] [address] [place] [phone] Pending Results Name Type Priority Associated Diagnoses Date /Time COMPREHENSIVE METABOLIC PANEL Lab Routine Chest pain Dizziness 08/27/2023 11:11 AM EDT TSH WITH FREE T4 IF INDICATED Lab Routine Chest pain Dizziness 08/27/2023 11:11 AM EDT CBC Lab Routine Chest pain Dizziness 08/27/2023 11:11 AM EDT Scheduled Procedures Name Priority Associated Diagnoses Date/Ti [...] 09/28/2000 Zoster Vaccines (1 of 2) 09/28/2005 GFR 11/29/2021 11/29/2020, 02/19, 12/09/2017, Additional history exists COVID-19 Vaccine (1 - 2022- season) 2022 Influenza Vaccine (FLU shot) (#1) 2023 11/08/2021 Diabetes Screening 06/03/2026 06/04/2023, 0 10/06/2022, 11/29/2020, Additional history exists Lipid Panel 11/08/2026 11/08/2021 [...] Not on filedocumented as of this encounter Visit Diagnoses Diagnosis Chest pain Chest pain, unspecified Dizziness Dizziness and giddiness documented in this encounter Care Teams Books Binder Relationship Specialty Start Date End Date Chapito Ruelas CRNP [address] [place] [address] [place] [phone] PCP - General Nurse Practitioner 01/02/23 documented as of this encounter
--- OUTSIDE RECORDS SUMMARY | 2023-12-16 13:07 | External Medical Summary | Summary of Care ---
Author Name Unknown Organization [facility] Address [address] [facility] [place] [address] Phone [phone] Care Team Providers Care Head Start Coordinator Name Role Phone Chapito Ruelas Primary Care Provider Reason for Visit * Reason Onset Date Comments Test Results 09/14/2023 Encounter Details Date Type Department Care Team (Late st Contact Info) Description 09/14/2023 Telephone Cardiology, [facility] 132 [facility] [place] [address] Agnes Barbosa PA-C [address] [place] [address] Test Results Allergies Active [...] Tablet Delayed ReleaseIndications: Coronary artery disease involving [place] heart without angina pectoris, unspecified vessel or [...] encounter Miscellaneous Notes * Telephone Encounter - Samaria Sher OSA - 10/15/2023 7:32 AM EDT Person calling: Pt Relationship to patient: self Phone/Fax to return call: [phone] Reason for call(brief): [facility]: [facility] [...] 01/07/2024 3:00 PM EST Office Visit Cardiology, [facility] 132 [facility] [place] [address] Agnes Barbosa PA-C [address] [place] [address] Scheduled Procedures Name Priority Associated Diagnoses Date/Ti [...] Vaccines (1 of 2) 09/28/2005 COVID-19 Vaccine ( - 2022- season) 2022 Influenza Vaccine (FLU [...] filedocumented as of this encounter Care Teams Head Start Coordinator Relationship Specialty Start Date End Date Chapito Ruelas CRNP [address] [place] [address] [place] [phone] PCP - General Nurse Practitioner 01/02/23 documented as of this encounter
--- OUTSIDE RECORDS SUMMARY | 2023-12-16 13:07 | External Medical Summary | Summary of Care ---
Author Name Unknown Organization [facility] Address [address] [facility] [place] [address] Phone [phone] Care Team Providers Care Automatic Typewriter Inspector Name Role Phone Chapito Ruelas Primary Care Provider Reason for Visit * Reason Onset Date Comments Test Results 09/14/2023 Encounter Details Date Type Department Care Team (Late st Contact Info) Description 09/14/2023 Telephone Cardiology, [facility] 132 [facility] [place] [address] Agnes Barbosa PA-C [address] [place] [address] Test Results Allergies Active [...] Tablet Delayed ReleaseIndications: Coronary artery disease involving [place] heart without angina pectoris, unspecified vessel or [...] to patient: self Phone/Fax to return call: [phone] Reason for call(brief): [facility] [...] 3:00 PM EST Office Visit Cardiology, [facility] 132 [facility] [place] [address] Agnes Barbosa PA-C [address] [place] [address] Scheduled Procedures Name Priority Associated Diagnoses Date/Ti [...] filedocumented as of this encounter Care Teams Automatic Typewriter Inspector Relationship Specialty Start Date End Date Chapito Ruelas CRNP [address] [place] [address] [place] [phone] PCP - General Nurse Practitioner 01/02/23 documented as of this encounter
--- OUTSIDE RECORDS SUMMARY | 2023-12-16 13:07 | External Medical Summary | Summary of Care ---
Author Name Unknown Organization [facility] Address [address] [facility] [address] Phone [phone] Care Team Providers Care Clothespin Machine Operator Name Role Phone Chapito Ruelas Primary Care Provider Reason for Visit * Reason Onset Date Comments Test Results 08/29/2023 Encounter Details Date Type Department Care Team (Late st Contact Info) Description 08/29/2023 Telephone Cardiology, [facility] [address] [place] [place] [address] Agnes Barbosa PA-C 400 [facility] [place] [address] Test Results Allergies Active Allergy Reactions Criticality Noted Date Comments Spironolactone 01/04/2022 Hyperkalemia, hyponatremia, hypercalcemia Doxazosin 01/02/2023 Significant fatigue Pollen 11/01/2020 Ragweed 11/01/2020 Hydrochlorothiazide 01/02/2023 hyponatremia documented as of this encounter (statuses as of 08/29/2023) Medications Medication Sig Dispensed Refills Start Date [...] Tablet Delayed ReleaseIndications: Coronary artery disease involving [place] heart without angina pectoris, unspecified vessel or [...] as of this encounter (statuses as of 08/29/2023) Active Problems Problem Noted Date Diagnosed Date Urticaria 01/04/2000 HYPERTENSION NOS 08/01/1999 Gout 08/01/1999 PURE HYPERCHOLESTEROLEM 08/01/1999 Tobacco use disorder 08/01/1999 Von Willebrand's disease documented as of this encounter (statuses as of 08/29/2023) Immunizations Name Administration Dates Next Due Seasonal [...] encounter Miscellaneous Notes * Telephone Encounter - Nancy Long CMA - 08/29/2023 11:40 AM EDT Letter mailed. * Telephone Encounter - Nancy Long CMA - 08/29/2023 11:40 AM EDT ----- Message from Agnes Barbosa sent at 08/28/2023 7:41 AM EDT ----- Stable labs, continue current medications. documented in this encounter Plan of Treatment Upcoming Encounters Date Type Department Care Team (Late st Contact Info) Description 09/03/2023 3:00 PM EDT Cardiac Studies Cardiac Studies, [facility] [address] [place] [address] 01/07/2024 3:00 PM EST Office Visit Cardiology, [facility] [address] [place] [address] Agnes Barbosa PA-C 400 [facility] [place] [address] Scheduled Procedures Name Priority Associated Diagnoses Date/Ti [...] filedocumented as of this encounter Care Teams Clothespin Machine Operator Relationship Specialty Start Date End Date Chapito Ruelas CRNP [address] [place] [address] [place] [phone] PCP - General Nurse Practitioner 01/02/23 documented as of this encounter
--- OUTSIDE RECORDS SUMMARY | 2023-12-16 13:07 | External Medical Summary | Summary of Care ---
Author Name Unknown Organization [facility] Address [address] [facility] [place] [place] [address] Phone [phone] Care Team Providers Care Global Cmo Name Role Phone Chapito Ruelas Primary Care Provider Reason for Visit * Reason Onset Date Comments Information 11/19/2023 Encounter Details Date Type Department Care Team (Late st Contact Info) Description 11/19/2023 Telephone Cardiology, [facility] [address] [place] [address] Kayode Crane, [address] [place] [address] Information Allergies Active Allergy Reactions Criticality Noted Date Comments Spironolactone 01/04/2022 Hyperkalemia, hyponatremia, hypercalcemia Doxazosin 01/02/2023 Significant fatigue Pollen 11/01/2020 Ragweed 11/01/2020 Hydrochlorothiazide 01/02/2023 hyponatremia Metoprolol Other (Please comment) 10/15/2023 Fatigue documented as of this encounter (statuses as of 11/21/2023) Medications Medication Sig Dispensed Refills Start Date [...] Tablet Delayed ReleaseIndications: Coronary artery disease involving [place] heart without angina pectoris, unspecified vessel or [...] as of this encounter (statuses as of 11/21/2023) Active Problems Problem Noted Date Diagnosed Date Urticaria 01/04/2000 HYPERTENSION NOS 08/01/1999 Gout 08/01/1999 PURE HYPERCHOLESTEROLEM 08/01/1999 Tobacco use disorder 08/01/1999 Von Willebrand's disease documented as of this encounter (statuses as of 11/21/2023) Immunizations Name Administration Dates Next Due Seasonal [...] encounter Miscellaneous Notes * Telephone Encounter - Jamison Mendoza LPN - 11/21/2023 4:54 PM EDT Called patient and informed of Dr. Crane's message. Patient verbalized understanding. * Telephone Encounter - Kayode Crane DO - 11/21/2023 3:41 PM EDT Recommend increasing metoprolol succinate to 12.5 milligrams twice daily. [facility] a [facility] day [facility] follow-up appointment as scheduled next month. Kayode Crane DO * Telephone Encounter - Emily Mcmanus LPN - 11/19/2023 9:45 AM EDT Pt restarted metoprolol 10/30, noticed slight improvement with "skipping," now becoming more frequent. Worse today, states every 4th beat is "skipped." C/o short of breath, occasional lightheadedness, dizziness No chest pain Taking 12.5mg metoprolol taking at night (due to fatigue) documented in this encounter Plan of Treatment Upcoming Encounters Date Type Department Care Team (Latest Contact Info) Description 01/07/2024 3:00 PM EST Office Visit Cardiology, [facility] [address] [place] [address] Agnes Barbosa PA-C [address] [place] [address] [place] [address] 02/26/2024 7:45 AM EST Hospital Encounter OR [facility], Operating Room [facility] [address] [place] [phone] Jun Canseco MD [address] [address] 02/26/2024 7:45 AM EST - 02/26/2024 8:11 AM EST Surgery OR [facility], Operating Room [facility] [address] [place] [phone] Jun Canseco MD [address] [address] LEFT EXTRACAPSULAR CATARACT REMOVAL WITH INTRAOCULAR LENS 03/04/2024 7:30 AM EST Hospital Encounter OR [facility], Operating Room [facility] [address] [place] [address] Jun Canseco MD [address] [address] 03/04/2024 7:30 AM EST - 03/04/2024 7:56 AM EST Surgery OR [facility], Operating Room [facility] [address] [facility] [place] [phone] Jun Canseco MD [address] [address] RIGHT EXTRACAPSULAR CATARACT REMOVAL WITH INTRAOCULAR LENS [...] filedocumented as of this encounter Care Teams Global Cmo Relationship Specialty Start Date End Date Chapito Ruelas CRNP [address] [place] [address] [place] [phone] PCP - General Nurse Practitioner 01/02/23 documented as of this encounter
--- OUTSIDE RECORDS SUMMARY | 2023-12-16 13:07 | External Medical Summary | Summary of Care ---
Author Name Unknown Organization [facility] Address [address] [facility] [place] [address] Phone [phone] Care Team Providers Care Client Liaison Name Role Phone Chapito Ruelas Primary Care Provider Reason for Visit * Reason Onset Date Comments Test Results 09/03/2023 Encounter Details Date Type Department Care Team (Late st Contact Info) Description 09/03/2023 Telephone Gricelda Yin [address] [place] [phone] Agnes [facility]osa [facility] [place] [address] Test Results Allergies Active Allergy Reactions Criticality Noted Date Comments Spironolactone 01/04/2022 Hyperkalemia, hyponatremia, hypercalcemia Doxazosin 01/02/2023 Significant fatigue Pollen 11/01/2020 Ragweed 11/01/2020 Hydrochlorothiazide 01/02/2023 hyponatremia documented as of this encounter (statuses as of 09/03/2023) Medications Medication Sig Dispensed Refills Start Date [...] Tablet Delayed ReleaseIndications: Coronary artery disease involving [place] heart without angina pectoris, unspecified vessel or [...] as of this encounter (statuses as of 09/03/2023) Active Problems Problem Noted Date Diagnosed Date Urticaria 01/04/2000 HYPERTENSION NOS 08/01/1999 Gout 08/01/1999 PURE HYPERCHOLESTEROLEM 08/01/1999 Tobacco use disorder 08/01/1999 Von Willebrand's disease documented as of this encounter (statuses as of 09/03/2023) Immunizations Name Administration Dates Next Due Seasonal [...] Telephone Encounter - Nancy Long CMA - 09/03/2023 4:26 PM EDT Letter mailed. * Telephone Encounter - Nancy Long CMA - 09/03/2023 4:25 PM EDT ----- Message from Agnes Barbosa sent at 09/03/2023 4:22 PM EDT ----- Overall stable echo. Keep appt as scheduled. documented in this encounter Plan of Treatment Upcoming Encounters Date Type Department Care Team (Late st Contact Info) Description 01/07/2024 3:00 PM EST Office Visit Cardiology, [facility] [address] [facility] [place] [address] Agnes Barbosa PA-C [address] [place] [address] [place] [address] Scheduled Procedures Name Priority Associated Diagnoses Date/Ti [...] 2) 09/28/2005 COVID-19 Vaccine (1 - season) 2022 Influenza Vaccine (FLU shot) (#1) [...] filedocumented as of this encounter Care Teams Client Liaison Relationship Specialty Start Date End Date Chapito Ruelas CRNP [address] [place] [address] [place] [id number] PCP - General Nurse Practitioner 01/02/23 documented as of this encounter
--- OUTSIDE RECORDS SUMMARY | 2023-12-16 13:07 | External Medical Summary | Summary of Care ---
Author Name Unknown Organization [facility] Address [address] [facility] [address] Phone [phone] Care Team Providers Care Cardiac Monitor Technician Name Role Phone Chapito Ruelas Primary Care Provider Reason for Referral * Precert (Within 10 days (routine)) - Authorized Specialty Diagnoses / Procedures Referred By Contmario t Referred To Contact Cardiac Studies Diagnoses Chest pain SOB (shortness of breath) Dizziness Procedures ECHO, COMPLETE (2D), TRANS-THORACIC Agnes Barbosa PA-C [address] [address] Referral ID Status Reason Start Date Expiration Date V isits Requested Visits Authorized [id number] Authorized Precert 08/27/2023 09/27/2023 999 999 Reason for Visit * Reason Comments Follow Up Acute Encounter Details Date Type Department Care Team (Late st Contact Info) Description 08/27/2023 10:30 AM EDT Office Visit Cardiology, [facility] [address] [facility] [place] [address] Agnes Barbosa PA-C [address] [place] [address] Chest pain, unspecified type*; Dizziness; SOB (shortness of breath); Nonobstructive atherosclerosis of coronary artery; HTN, goal below 130/80; Dyslipidemia, goal LDL below 70 Allergies Active Allergy Reactions Criticality Noted Date [...] Tablet Delayed ReleaseIndications: Coronary artery disease involving [place] heart without angina pectoris, unspecified vessel or [...] Smoking Tobacco: Never Smokeless Tobacco: Current Snuff Tobacco Cessation:Ready to Q uit: Not Asked; Counseling Given: Not Answered Alcohol Use Standard Drinks/Week Comments Yes 14 [...] on file documented as of this encounter Last Filed Vital Signs Vital Sign Reading Time Taken Comments Blood Pressure 140/68 08/27/2023 10:16 AM EDT Pulse 60 08/27/2023 10:16 AM EDT Temperature - - Respiratory Rate - - Oxygen Saturation - - Inhaled Oxygen Concentration - - Weight 91.2 kg (201 lb) 08/27/2023 10:16 AM EDT Height - - Body Mass Index 28.03 06/04/2023 9:31 AM EDT documented in this encounter Progress Notes * Agnes Barbosa PA-C - 08/27/2023 10:17 AM EDT 08/27/2023 Cardiology Follow Up Primary Learning And Development Consultant: Dr. Crane Past medical history: Mild Nonobstructive CAD (10% mid LAD stenosis and 20% ostial RCA taper) per cardiac [id number]/26/2021 Hypertension Electrolyte imbalance with spironolactone and also HCTZ Personal intolerance to doxazosin-- fatigue Ankle edema on higher doses of Norvasc (10 mg) Dyslipidemia Abnormal LFTs secondary to fatty liver disease HPI: Elías Christine is a 67 year old male who presents for acute visit. States about 1 week ago he had an episode of chest pain, arm and back pain, lasted about 30 minutes, thought he overdid it the day before. Then today he woke up and was drinking coffee, sitting, had chest discomfort, did not radiate, just felt "off". Had dizziness and shortness of breath that lasted 20-30 seconds. Denies palpitations. States he checks his blood pressure at home and it has been normal. Normal appetite. Stays well hydrated. Drinks 2-3 cups of half caff coffee. Nonsmoker. REVIEW OF SYSTEMS: See HPI for pertinent positives. All others negative other than those noted in the HPI. CONSTITUTIONAL: No change in weight, No weakness, No fatigue and No fevers, No sweats or chills. PULMONARY: No cough, sputum, or hemoptysis, No wheezing, No shortness of breath and No recent change in breathing. CARDIOVASCULAR: + chest pain, No dyspnea on exertion, No edema, No palpitations and No syncope. GASTROINTESTINAL: No abdominal pain, No change in bowel habits, No significant heartburn, No nausea, No vomiting, No diarrhea, No constipation, No blood in stools or black tarry stools. No dysphagia. HEMATOLOGIC: No abnormal bleeding and No bruising. NEUROLOGICAL: Normal balance, No headaches and No weakness. Review of patient's allergies indicates: Allergen Reactions Aldactone [Spironolactone] Hyperkalemia, hyponatremia, hypercalcemia Doxazosin Significant fatigue Environmental [Pollen] Environmental [Ragweed] Hydrochlorothiazide hyponatremia Current Outpatient Medications Medication Sig Dispense Refill finasteride (PROSCAR) 5 MG Tablet Take 1 Tablet by mouth at bedtime. 0 allopurinol (ZYLOPRIM) 300 MG Tablet Take 1 Tablet by mouth in the morning. Esomeprazole Magnesium 10 MG Oral Packet Take 10 mg by mouth daily before breakfast. Aspirin EC 81 MG Oral Tablet Delayed Release One tablet by mouth every other day 30 Tab 11 Rosuvastatin Calcium 10 MG Oral Tablet (Crestor) Take 1 Tablet by mouth at bedtime. 30 Tab 11 Jardiance 10 MG Oral Tablet Take 1 Tablet by mouth in the morning. Telmisartan 80 MG Oral Tablet (Micardis) Take 1 Tablet by mouth in the morning. hydrALAZINE HCl 25 MG Oral Tablet (Apresoline) TAKE 1 TABLET IN THE MORNING, 1 TABLET AT NOON AND 1TABLET BEFORE BEDTIME 270 Tablet 3 amLODIPine Besylate 5 MG Oral Tablet (Norvasc) TAKE 1 TABLET IN THE MORNING 90 Tablet 3 traMADol (ULTRAM) 50 MG Tablet take 1 tablet by mouth twice a day if needed for pain (Patient not taking: Reported on 05/30/2023) 0 dicyclomine (BENTYL) 10 MG Capsule Take 1 Cap by mouth 2 times a day. (Patient not taking: Reportedon 01/16/2023) 180 Cap 1 Hyoscyamine Sulfate 0.125 MG Oral Tablet (Levsin) Take by mouth 1 Tablet 2 times a day as needed for Cramping. (Patient not taking: Reported on 01/16/2023) 90 Tablet 1 LORazepam 1 MG Oral Tablet (Ativan) Take 1 Tablet by mouth 2 times a day as needed. (Patient not taking: Reported on 05/30/2023) Ondansetron HCl 4 MG Oral Tablet (Zofran) take 1 tablet by mouth every 6 hours for nausea (Patient not taking: Reported on 05/30/2023) No current facility-administered medications for this visit. Past Medical History: Diagnosis Date Dyslipidemia, goal LDL below 160 Gout HTN, goal to be determined Other chest pain 02/19 [place] ruled out, BP uncontrolled Tobacco use disorder No family history on file. Social History Socioeconomic History Marital status: Tobacco Use Smoking status: Never Smokeless tobacco: Current Types: Snuff Vaping Use Vaping status: Never Used Substance and Sexual Activity Alcohol use: Yes Alcohol/week: 14.0 standard drinks of alcohol Types: 14 12 oz of beer per week Comment: quit using alcohol (beer) 02/19-ETOH aggravated BP Drug use: No Social Determinants of Health Social Connections OBJECTIVE/PHYSICAL EXAMINATION: BP 140/68 | Pulse 60 | Wt 91.2 kg (201 lb) | BMI 28.03 kg/m | BSA 2.14 m General: No acute distress. A+Ox3. HEENT: Normocephalic. Atraumatic. PERRL. EOMI. Conjunctiva and sclera clear. NECK: No carotid bruits. No JVD. Carotid upstrokes are brisk. Heart: RRR. S1 and S2 noted. No murmur. No rubs or gallops. PMI non displaced. Lungs: Clear to auscultation. No wheezes. No rhonchi. No rales. Abdomen: Normal bowel sounds. Soft. Nontender. No masses or organomegaly. No abdominal bruits. Extremities: No edema. No clubbing or cyanosis. Pulses: radial=2/4, posterior tibial=2/4, dorsalis pedis = 2/4. NEURO: No focal deficits. PSYCH: Appropriate affect and insight. DATA Labs & Imaging Reviewed Below: EKG 08/27/23 NSR, 68 bpm EKG 11/08/21 Sinus rhythm with 1st degree AV block, 61 bpm Cardiac cath 10/14/[address] Espinal at [facility] Minimal nonobstructive CAD with 10% mid LAD stenosis and 20% ostial RCA taper Echo 10/13/2020 [facility] LVEF 60-65% with no wall motion abnormalities Mild concentric LVH Grade 2 diastolic dysfunction No significant valvular heart disease ASSESSMENT/PLAN: 67 year old male 1. Chest pain, unspecified type 2. Dizziness 3. SOB (shortness of breath) 4. Nonobstructive atherosclerosis of coronary artery - presents with nonexertional chest pain and episode of dizziness and shortness of breath - EKG with no acute changes - will repeat echo to assess for valvular disease - Zio to assess for arrhythmias - repeat labs today 1. Continue aspirin 81 mg daily 5. HTN, goal below 130/80 - Controlled on multidrug regimen - History of multiple drug intolerances 1. Continue Telmisartan 80 mg daily (max dose) 2. Continue amlodipine 5 mg daily 3. Continue hydralazine 25 mg three times daily 3. Not on BB due to slow resting heart rate 6. Dyslipidemia, goal LDL below 70 - Borderline controlled. LDL 74. - Continue Crestor 10 mg daily DISPOSITION: Follow up 4 months or sooner if symptoms worsen/fail to improve. All questions were answered to the patients satisfaction. Patient advised to report to ED with any and all emergencies. The patient agrees to the above plan and will call with additional questions or concerns. Agnes Barbosa PA-C Cardiology, [address] [place] [address] I spent a total of 45 minutes on the date of service in preparation, delivery, and documentation ofthe care provided to Elías Christine excluding any time spent in the performance of separately billed services. This chart was completed in part utilizing [employer] Speech Voice Recognition Software. Grammatical errors, random word insertions, pronoun errors, and incomplete sentences are an occasional consequence of this system due to software limitations, ambient noise, and hardware issues. Any formal questions or concerns about the content, text, or information contained within the body of this dictation should be directly addressed to the provider for clarification. documented in this encounter Procedure Notes * Dru Espinal DO - 08/27/2023 10:25 AM EDTAssociated Order(s): EKG REASON FOR STUDY: SOB/ chest pain;SOB/ chest pain CONCLUSIONS: Normal sinus rhythm Rightward axis Borderline ECG When compared with ECG of 08-Nov-2021 08:19, No significant change was found Ventricular Rate: 68 Atrial Rate: 68 DC Interval: 196 QRS Duration: 110 QT/QTc: 378/401 ms P-R-T [place]: 58 : 91 : 32 degrees documented in this encounter Nursing Notes * Nancy Long CMA - 08/27/2023 10:15 AM EDT Examination Room: 7 Name: Elías Christine Date of : (1955) Reason for Visit: SOB Interim Hospitalization(s): none Problems/Concerns: dizziness Chest Pain/SOB: weird feeling in chest, dizzy, SOB. My [facility] is a way you can talk to your provider online through e-mail. Would you like to sign up? I can activate it for you? DECLINES Patient was instructed to not get up on the exam table until directed and assisted by their provider; patient is to remain seated in the chair/ wheelchair/ exam table for fall prevention and safety reasons. Patient is aware to have assistance to step down off exam table with personnel. Patient voiced full comprehension of instructions. documented in this encounter Plan of Treatment Upcoming Encounters Date Type Department Care Team (Late st Contact Info) Description 09/03/2023 3:00 PM EDT Cardiac Studies Cardiac Studies, [facility] [address] [facility] [place] [address] 01/07/2024 3:00 PM EST Office Visit Cardiology, [address] [place] [address] Agnes Barbosa PA-C [address] [place] [address] [place] [address] Pending Results Name Type Priority Associated Diagnoses Date /Time TSH WITH FREE T4 IF INDICATED Lab Routine Chest pain Dizziness 08/27/2023 11:11 AM EDT Scheduled Orders Name Type Priority Associated Diagnoses Orde r Schedule TSH WITH FREE T4 IF INDICATED Lab Routine Chest pain, unspecified type Dizziness Expected: 08/27/2023, Expires: 08/26/2024 EXTERNAL EKG 8 TO 15 DAYS Holter Routine Chest pain, unspecified type Dizziness Expected: 08/28/2023 (Approximate), Expires: 08/26/2024 ECHO, COMPLETE (2D), TRANS-THORACIC Echocardiology Routine Chest pain, unspecified type SOB (shortness of breath) Dizziness Expected: 08/28/2023, Expires: 09/26/2025 Scheduled Procedures Name Priority Associated Diagnoses Date/Ti [...] Not on filedocumented as of this encounter Procedures Procedure Name Priority Date/Time Associated Diagnosis Comments DC ECG ROUTINE ECG W/LEAST 12 LDS W/I&R Routine 08/27/2023 10:25 AM EDT Chest pain, unspecified type SOB (shortness of breath) documented in this encounter Results * CBC (08/27/2023 11:11 AM EDT) WBC 7.17 4.00 - 10.80 K/uL 08/27/2023 11:36 AM EDT [facility] [place] [facility] RBC 4.72 4.50 - 5.25 M/uL 08/27/2023 11:36 AM EDT [facility] [place] [facility] HGB 15.4 14.0 - 16.8 g/dL 08/27/2023 11:36 AM EDT [facility] [place] [facility] HCT 45.8 40.0 - 48.4 % 08/27/2023 11:36 AM EDT [facility] [place] [facility] MCV 97.0 82.0 - 99.5 fL 08/27/2023 11:36 AM EDT [facility] [place] [facility] MCH 32.6 27.0 - 34.0 pg 08/27/2023 11:36 AM EDT [facility] [place] [facility] MCHC 33.6 32.0 - 36.0 g/dL 08/27/2023 11:36 AM EDT [facility] [place] [facility] RDW 12.9 11.5 - 15.5 % 08/27/2023 11:36 AM EDT [facility] [place] [facility] PLT 168 140 - 400 K/uL 08/27/2023 11:36 AM EDT [facility] [place] [facility] MPV 10.9 6.6 - 11.1 fL 08/27/2023 11:36 AM EDT [facility] [place] [facility] Blood Venous blood specimen / Unknown Venipuncture / Unknown 08/27/2023 11:11 AM EDT 08/27/2023 11:11 AM EDT Agnes Barbosa PA-C LAB BLOOD ORDER YOUSIF [facility] [place] [facility] [address] [facility] [place] [address] * (ABNORMAL) COMPREHENSIVE METABOLIC PANEL (08/27/2023 11:11 AM EDT) BUN 22(H) 6 - 20 mg/dL 08/27/2023 1:01 PM EDT [facility] 57-10 Creatinine 1.1 0.6 - 1.2 mg/dL 08/27/2023 1:01 PM EDT [facility] 57-10 Estimated Glomerular Filtration Rate 73 >=60 mL/min 08/27/2023 1:01 PM EDT [facility] 57-10 Comment:eGFR is calculated b ased on the CKD-EPI 2020 equation Sodium 138 135 - 146 mmol/L 08/27/2023 1:01 PM EDT [facility] 57-10 Potassium 4.6 3.5 - 5.1 mmol/L 08/27/2023 1:01 PM EDT [facility] 57-10 Chloride 103 98 - 107 mmol/L 08/27/2023 1:01 PM EDT [facility] 57[facility]10 CO2 21(L) 22 - 32 mmol/L 08/27/2023 1:01 PM EDT [facility] [place] [facility]10 Anion Gap 14 7 - 15 mmol/L 08/27/2023 1:01 PM EDT [facility] [place] [facility]10 Glucose 125(H) 70 - 120 mg/dL 08/27/2023 1:01 PM EDT [facility] [place] [facility]10 Albumin 4.8 3.8 - 5.0 g/dL 08/27/2023 1:01 PM EDT [facility] [place] 57[facility]10 AST 36 10 - 50 U/L 08/27/2023 1:01 PM EDT [facility] 57-10 Alkaline Phosphatase 84 35 - 130 U/L 08/27/2023 1:01 PM EDT [facility] 57-10 Bilirubin, Total 0.5 <=1.2 mg/dL 08/27/2023 1:01 PM EDT [facility] 57-10 Calcium 10.5(H) 8.4 - 10.2 mg/dL 08/27/2023 1:01 PM EDT [facility] 57-10 Protein 8.0 6.0 - 8.3 g/dL 08/27/2023 1:01 PM EDT [facility] 57-10 ALT 64(H) 10 - 50 U/L 08/27/2023 1:01 PM EDT [facility] [place] [facility] Blood Venous blood specimen / Unknown Venipuncture / Unknown 08/27/2023 11:11 AM EDT 08/27/2023 11:11 AM EDT Agnes Barbosa PA-C LAB BLOOD ORDER YOUSIF Performing Organization Address [facility] Co de Phone Number [facility] [place] [facility] [place] [address] * EKG (08/27/2023 10:25 AM EDT) 08/27/2023 10:2 5 AM EDT Narrative Procedure Note Dru Espinal DO - 08/27/2023 10:25 AM EDT REASON FOR STUDY: SOB/ chest pain;SOB/ chest pain CONCLUSIONS: Normal sinus rhythm Rightward axis Borderline ECG When compared with ECG of 08-Nov-2021 08:19, No significant change was found Ventricular Rate: 68 Atrial Rate: 68 DC Interval: 196 QRS Duration: 110 QT/QTc: 378/401 ms P-R-T [place]: 58 : 91 : 32 degrees Agnes Barbosa PA-C EKG Performing Organization Address [facility] Co de Phone Number [facility] documented in this encounter Visit Diagnoses Diagnosis Chest pain, unspecified type- Primary Dizziness Dizziness and giddiness SOB (shortness of breath) Shortness of breath Nonobstructive atherosclerosis of coronary artery HTN, goal below 130/80 Unspecified essential hypertension Dyslipidemia, goal LDL below 70 Other and unspecified hyperlipidemia documented in this encounter Care Teams Cardiac Monitor Technician Relationship Specialty Start Date End Date Chapito Ruelas CRNP [address] [place] [address] [place] [address] PCP - General Nurse Practitioner 01/02/23 documented as of this encounter
--- OUTSIDE RECORDS SUMMARY | 2023-12-16 13:07 | External Medical Summary | Summary of Care ---
Author Name Unknown Organization [facility] Address [address] [facility] [place] [address] Phone [phone] Care Team Providers Care Cementer Machine Applicator Name Role Phone Chapito Ruelas Primary Care Provider Reason for Visit * Reason Onset Date Comments Test Results 09/14/2023 Encounter Details Date Type Department Care Team (Late st Contact Info) Description 09/14/2023 Telephone Cardiology, [facility] [address] [facility] [place] [address] Agnes Barbosa PA-C [address] [place] [address] Test Results Allergies Active Allergy Reactions Criticality Noted Date Comments Spironolactone 01/04/2022 Hyperkalemia, hyponatremia, hypercalcemia Doxazosin 01/02/2023 Significant fatigue Pollen 11/01/2020 Ragweed 11/01/2020 Hydrochlorothiazide 01/02/2023 hyponatremia documented as of this encounter (statuses as of 10/11/2023) Medications Medication Sig Dispensed Refills Start Date [...] Tablet Delayed ReleaseIndications: Coronary artery disease involving oneida heart without angina pectoris, unspecified vessel or [...] as of this encounter (statuses as of 10/11/2023) Active Problems Problem Noted Date Diagnosed Date Urticaria 01/04/2000 HYPERTENSION NOS 08/01/1999 Gout 08/01/1999 PURE HYPERCHOLESTEROLEM 08/01/1999 Tobacco use disorder 08/01/1999 Von Willebrand's disease documented as of this encounter (statuses as of 10/11/2023) Immunizations Name Administration Dates Next Due Seasonal [...] 01/07/2024 3:00 PM EST Office Visit Cardiology, [facility] [address] [facility] [place] [address] Agnes Barbosa [facility] [address] [facility] [address] Scheduled Procedures Name Priority Associated Diagnoses [...] filedocumented as of this encounter Care Teams Cementer Machine Applicator Relationship Specialty Start Date End Date Chapito Ruelas CRNP [address] [place] [address] [place] [id number] PCP - General Nurse Practitioner 01/02/23 documented as of this encounter
--- OUTSIDE RECORDS SUMMARY | 2023-12-16 13:07 | External Medical Summary | Summary of Care ---
Author Name Unknown Organization [facility] Address [address] [facility] [place] [address] Phone [phone] Care Team Providers Care Curing Press Maintainer Name Role Phone Suraj Chapito Joe PEÑA Primary Care Provider Reason for Visit * Reason Onset Date Comments Test Results 09/14/2023 Encounter Details Date Type Department Care Team (Late st Contact Info) Description 09/14/2023 Telephone Cardiology, [facility] [address] [facility] [place] [address] Agnes Barbosa PA-C [address] [place] [address] Test Results Allergies Active [...] Aspirin EC 81 MG Oral Tablet Delayed ReleaseIndication s:Coronary artery disease involving la post[place] heart without angina pectoris, unspecified vessel or lesion type One tablet by mouth every other day 30 Tab 11 11/01/2020 Active Rosuvastatin Calcium 10 MG Oral Tablet (Crestor)Indicati ons:Dyslipidemia, goal LDL below 70 Take 1 Tablet [...] Active hydrALAZINE HCl 25 MG Oral Tablet (Apresoline)Indic ations:HTN, goal below 140/90 TAKE 1 TABLET IN THE MORNING, 1 TABLET AT NOON AND 1 TABLET BEFORE BEDTIME 270 Tablet 3 06/11/2023 Active amLODIPine Besylate 5 MG Oral Tablet (Norvasc)Indicati ons:HTN, goal below 140/90 TAKE 1 TABLET IN THE MORNING 90 Tablet 3 06/11/2023 Active Metoprolol Succinate ER 25 MG Oral Tablet Extended Release 24 Hour (toPROL XL) Take 0.5 Tablets by mouth in the morning. 45 Tablet 3 09/14/2023 4 Discontinue d(Adverse reaction) documented as of this encounter (statuses as [...] as of this encounter Miscellaneous Notes * Addendum Note - Rafat Mendoza LPN - 10/15/2023 1:28 PM EDTAddended by: RAFAT MENDOZA on: 10/15/2023 01:28 PM Modules accepted: Orders * Telephone Encounter - Rafat Mendoza LPN - 10/15/2023 1:26 PM EDT Called patient and informed of Agnes's message. Patient verbalized understanding. Medication/Contraindications list updated. * Telephone Encounter - Agnes Barbosa PA-C - 10/15/2023 1:03 PM EDT He can stop metoprolol. We can discuss other medication options if palpitations worsen. * Telephone Encounter - Samaria Sher OSA - 10/15/2023 7:32 AM EDT Person calling: Pt Relationship to patient: self Phone/Fax to return call: [phone] Reason for call(brief): Medication Pharmacy: [facility] Provider Name: Agnes Barbosa Detailed message to [...] 3:00 PM EST Office Visit Cardiology, [facility] [address] [facility] [place] [address] Agnes Barbosa PA-C [address] [place] [address] [place] [address] Scheduled Procedures Name Priority Associated Diagnoses [...] (1 of 2) 09/28/2005 COVID-19 Vaccine ( season) 2022 Influenza Vaccine (FLU shot) (#1) [...] filedocumented as of this encounter Care Teams Curing Press Maintainer Relationship Specialty Start Date End Date Chapito Ruelas CRNP [address] [place] [address] [place] [id number] PCP - General Nurse Practitioner 01/02/23 documented as of this encounter
--- OUTSIDE RECORDS SUMMARY | 2023-12-16 13:08 | External Medical Summary ---
Author Name Unknown Address Unknown Organization [id number] [address] [place] [address] Laboratory Report Ordering Provider Test Date Status TRAVON CHING 08/27/2023 11:11:16 Final Observation Date Value Abnormality Reference (Units ) Status WBC, Total 08/27/2023 11:11:16 7.17 4.00-10.8 0 (K/uL) Final RBC 08/27/2023 11:11:16 4.72 4.50-5.25 (M/uL) Final Hemoglobin 08/27/2023 11:11:16 15.4 14.0-16.8 (g/dL) Final HCT 08/27/2023 11:11:16 45.8 40.0-48.4 (%) Final MCV 08/27/2023 11:11:16 97.0 82.0-99.5 (fL) Final MCH 08/27/2023 11:11:16 32.6 27.0-34.0 (pg) Final MCHC 08/27/2023 11:11:16 33.6 32.0-36.0 (g/dL) Final RDW 08/27/2023 11:11:16 12.9 11.5-15.5 (%) Final Platelets 08/27/2023 11:11:16 168 140-400 (K /uL) Final MPV 08/27/2023 11:11:16 10.9 6.6-11.1 ( fL) Final Performing Location [facility] [address] [place] [address]
--- OUTSIDE RECORDS SUMMARY | 2023-12-16 13:08 | External Medical Summary ---
Author Name Unknown Address Unknown Organization [id number] [place] [address] [place] [address] Laboratory Report Ordering Provider Test Date Status TRAVON CHING 08/27/2023 11:11:16 Final Observation Date Value Abnormality Reference (Units ) Status BUN 08/27/2023 11:11:16 22 Above high normal 6-20 (mg/dL) Final Creatinine 08/27/2023 11:11:16 1.1 0.6-1.2 (mg/dL) Final Glomerular filtration rate/1.73 sq M.predicted [Volume Rate/Area] in Serum, Plasma or Blood by Creatinine-based formula (CKD-EPI) 08/27/2023 11:11:16 73 >=60 (mL/min) Final eGFR is calculated based on the CKD-EPI 2020 equation Sodium 08/27/2023 11:11:16 138 135-146 (m mol/L) Final Potassium 08/27/2023 11:11:16 4.6 3.5-5.1 (m mol/L) Final Cl 08/27/2023 11:11:16 103 98-107 (mm ol/L) Final CO2 08/27/2023 11:11:16 21 Below low normal 22- 32 (mmol/L) Final Anion gap 08/27/2023 11:11:16 14 7-15 (mmol /L) Final Glucose 08/27/2023 11:11:16 125 Above high normal 70 -120 (mg/dL) Final Albumin 08/27/2023 11:11:16 4.8 3.8-5.0 (g /dL) Final AST (Aspartate aminotransferase) 08/27/2023 11:11:16 36 10-50 (U/L) Fin al Alk Phos 08/27/2023 11:11:16 84 35-130 (U/ L) Final Bilirubin, Total 08/27/2023 11:11:16 0.5 <=1 .2 (mg/dL) Final Calcium 08/27/2023 11:11:16 10.5 Above high normal 8. 4-10.2 (mg/dL) Final Protein 08/27/2023 11:11:16 8.0 6.0-8.3 (g /dL) Final ALT (Alanine aminotransferase) 08/27/2023 11:11:16 64 Above high normal 10-50 (U/L) Final Performing Location [facility] [place] [address] [facility] [address]
[2023-12-16 13:28] LABS: iSTAT Creatinine 1.3 mg/dl (0.6-1.3); iSTAT Ionized Calcium 1.28 mmol/l (1.12-1.32); iSTAT Potassium 4.3 mmol/L (3.3-5.0)
[2023-12-16 13:28] LABS: Basophils # (auto) 0.06 K/uL (0.00-0.20); Basophils % (auto) 0.7 %; Eosinophils # (auto) 0.18 K/uL (0.00-0.50); Eosinophils % (auto) 2.2 %; Hematocrit (blood only) 48.9 % (42.0-52.0); Hemoglobin 16.6 g/dl (14.0-18.0); Immature Granulocytes # (auto) 0.03 K/uL (0.01-0.20); Immature Granulocytes % (auto) 0.4 %; Lymphocytes # (auto) 2.26 K/uL (1.20-3.40); Lymphocytes % (auto) 28.1 %; Mean Corpuscular Hemoglobin 32.7 pg (25.0-34.0); Mean Corpuscular Hgb Conc 33.9 g/dL (32.0-36.0); Mean Corpuscular Volume 96.3 fL (80.0-100.0); Mean Platelet Volume 11.1 fL (9.4-12.4); Monocytes # (auto) 0.72 K/uL (0.11-0.59); Neutrophils # (auto) 4.78 K/uL (1.40-6.50); Neutrophils % (auto) 59.6 %; Platelet Count 179 K/uL (130-400); RDW Coefficient of Variation 12.5 % (11.5-14.5); RDW Standard Deviation 44.9 fL (36.4-46.3); Red Blood Count 5.08 M/uL (4.70-6.10); White Blood Count 8.03 K/ul (4.8-10.8)
[2023-12-16 13:44] LABS: Albumin Globulin Ratio 1.4 (0.9-2); Albumin Level 4.8 gm/dl (3.4-5.0); BUN Creatinine Ratio 15.5 (10-20); Bilirubin,Total 0.7 mg/dl (0.2-1.0); Calcium 10.3 mg/dl (8.6-10.3); Creatinine Clr Calc Pharmacy 70.8 ml/min; Globulin 3.4 gm/dl (2.5-4.0); Magnesium 2.2 mg/dl (1.7-2.4); Potassium 4.4 mmol/L (3.5-5.1); Total Protein 8.2 gm/dl (6.0-8.3)
--- NOTE | 2023-12-16 13:44 | XRay Report ---
SINGLE VIEW CHEST CLINICAL HISTORY: Atypical chest pain FINDINGS: An AP, portable, upright chest radiograph is compared to study dated 06/18/2022 and correlat ed with chest CT dated 06/19/2022. The cardiomediastinal silhouette is unremarkable noting atherosclero tic calcification of the thoracic aorta. Chronic interstitial thickening is similar to previous. Ther e is bibasilar scarring/atelectasis. No airspace consolidation or large pleural effusion is identifie d. No pneumothorax is seen. The skeletal structures are osteopenic. The bony thorax is grossly intact . IMPRESSION: No acute cardiopulmonary abnormality is identified. ACT 112: Negative or not required by law. Electronically signed by: Carlo Busby M.D. 12/16/2023 1:43 PM
[2023-12-16 13:50] LABS: Troponin I High Sensitivity 3.7 pg/ml (0-20)
[2023-12-16 13:57] LABS: Prothrombin Time 10.9 Seconds (9.0-12.0)
--- NOTE | 2023-12-16 14:23 | Emergency Department Note ---
Impression & Plan Chest pain, Heart palpitations ED Provider Note HISTORY OF PRESENT ILLNESS: Patient is a 68-year-old male presenting with chest pain and lightheadedness. Patient reports that he has been having intermittent episodes of left-sided chest pain "for a while." He reports he gets it on and off for the last few weeks and has had associated shortness of breath during that timeframe. States that for the last 3 days he has been having rather persistent and recurrent episodes of left-sided chest pain. He states the pain radiates up to his jaw. He denies any chest pain currently in the emergency department. He reports he intermittently feels slightly lightheaded. Denies any DVT or PE history. Denies any history of cardiac stents. He is not on any anticoagulation or antiplatelet therapies. He states that he recently had adjustments to his metoprolol medication about 3 weeks ago. ROS: as above PHYSICAL EXAM: Constitutional: Patient appears in no acute distress. HENT: Head: Normocephalic and atraumatic. Eyes: EOMI, PERRL Mouth/Throat: Mucous membranes moist. Neck: Trachea midline. Neck supple. Cardiovascular: RRR, No murmurs, rubs or gallops. Intact distal pulses. Pulmonary/Chest: No respiratory distress. Breath sounds clear and equal bilaterally. No wheezes or rales. Abdominal: Abdomen soft, no tenderness, rebound or guarding. Musculoskeletal: No edema, tenderness or deformity noted. Skin: Warm and dry. No rash, erythema, pallor or cyanosis Psychiatric: Appropriate mood and affect for situation. Neurological: Alert and keenly responsive. CN II-XII grossly intact, moving all extremities equally and fully. MDM: - Vitals signs showed hypertension - History obtained via patient. History as above. - Chronic conditions affecting care: HTN; HLD - Differential diagnoses include, but are not limited to: Acute coronary syndrome; pulmonary embolism; dissection; tension pneumothorax; esophageal rupture; pneumonia - Order placed for continuous cardiac monitoring. At this time, monitor showed rate of 65 bpm with normal sinus rhythm, per my interpretation. - External medical records reviewed. Cardiac catheterization note dated 10/14/2020 was reviewed. Patient was noted to have minimal nonobstructive CAD with 10% mid LAD stenosis and 20% ostial RCA taper on that catheterization. Treatment plan was for medical management. - EKG interpreted by myself showed normal sinus rhythm. Rate 72 bpm. QT 388. No acute ischemic changes. Noted to have frequent PVCs. Also noted to have bigeminy. - Laboratory workup interpreted by myself showed normal WBC; normal PT/INR; stable electrolytes; transaminitis (AST 46; ALT 87); normal troponin; normal lipase - CXR negative for pneumonia, per my interpretation. - CT PE negative for acute pathology - Repeat troponin within normal limits. - Moderate HEART score. - Discussion was had with case coordinator about patient's case and need for admission - Hospitalist consulted for admission - Patient admitted to [facility] service for further evaluation and management. ASSESSMENT AND PLAN: Diagnosis: Chest pain; heart palpitations Plan: Admit Past Med/Surg History Problem List (Updated 12/16/23 @ 16:36 by Shagufta Lucio MD) Heart palpitations (Acute) Chest pain (Acute) COVID-19 (Acute) BPH (benign prostatic hyperplasia) Gout IBS (irritable bowel syndrome) Hyperlipidemia Nocturia Colon polyps Encounter for pre-operative examination HTN (hypertension) (Chronic) Eye pain (Acute) Chest pain (Acute) Chest pain, unspecified (Acute) Corneal abrasion (Acute) Fever (Acute) Infection of shoulder (Acute 02/13/14) Medical History BPH (benign prostatic hyperplasia) Former smoker Gout Hyperlipidemia Hypertension IBS (irritable bowel syndrome) Surgical History History of cardiac cath 10-15 YRS AGO NO STENTS History of colonoscopy X 2-3 History of esophagogastroduodenoscopy (EGD) History of herniorrhaphy History of repair of rotator cuff R/L Family History Father Family history of diabetes mellitus Family/Other Family history of diabetes mellitus Mother Coronary heart disease fatal [place] age 78 Social History Smoking Status: Never smoker Tobacco Type: Smokeless Tobacco (Dip or Chew) Second Hand Exposure: No; Do You Dip or Chew Tobacco: Yes (ON OCCASION); Hx Alcohol Use: Yes Alcohol type: beer Hx Substance Use: No Preferred Language: Luxembourger Communication Ability: Effective 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: No Beliefs That Will Affect Care: None Current Living Situation: Spouse Feels Safe at Home: Yes Assistive Devices: None Allergies Allergies Allergy/AdvReac Type Severity Reaction Status Date / Time cefuroxime [From Ceftin] Allergy Unknown CAN'T Verified 06/23/21 17:53 REMEMBER clarithromycin Allergy Unknown CAN'T Verified 06/23/21 17:53 REMEMBER prednisone AdvReac Severe Tachycardia Verified 06/23/21 17:53 Home Meds Home Medications Medication Instructions Recorded Confirmed allopurinol 300 mg tablet 300 mg PO QAM 11/29/17 12/16/23 diltiazem HCl 240 mg 240 mg PO QAM 11/29/17 12/16/23 capsule,extended release 24 hr esomeprazole magnesium 20 mg 20 mg PO DIRECTED PRN Acid 11/29/17 12/16/23 capsule,delayed release (Nexium) Reflux telmisartan 80 mg tablet 80 mg PO QAM 11/29/17 12/16/23 rosuvastatin 10 mg tablet 10 mg PO PM 01/24/19 12/16/23 tramadol 50 mg tablet 50 mg PO BID PRN Pain 10/13/20 12/16/23 omega-3 fatty acids 1,000 mg 2,000 mg PO DAILY 03/03/21 12/16/23 capsule finasteride 5 mg tablet 5 mg PO HS 06/23/21 12/16/23 lorazepam 1 mg tablet 1 mg PO BID PRN Anxiety 06/23/21 12/16/23 metformin 500 mg tablet 500 mg PO QPM 06/23/21 12/16/23 amlodipine 5 mg tablet 5 mg PO DAILY 12/16/23 12/16/23 empagliflozin 25 mg tablet 25 mg PO DAILY 12/16/23 12/16/23 (Jardiance) hydralazine 25 mg tablet 25 mg PO TID 12/16/23 12/16/23 omeprazole 20 mg capsule,delayed 20 mg PO DAILY 12/16/23 12/16/23 release Previous Rx's Medication Instructions Recorded aspirin 81 mg tablet,delayed 81 mg PO QAM #30 tabs 10/14/20 release Results & Data (ED) Vital Signs Vital Signs - 24 hr 12/16/23 13:03 12/16/23 13:17 12/16/23 13:18 Temperature 36.0 C L Temperature Source Temporal Artery Scan Pulse Rate 41 L 66 Pulse Rate from SpO2 Sensor Pulse Rhythm Regular Pulse Strength Normal Respiratory Rate 18 Respiratory Effort / Characteristics Non-Labored Spontaneous Respiratory Depth Normal Respiratory Pattern Regular Blood Pressure 146/79 H Blood Pressure Mean 101 Blood Pressure Position Sitting Pulse Oximetry 93 Oxygen Delivery Method Room Air Room Air Sepsis Recent Fever Within 48 Hours No Sepsis New/Unexplained Change in Mental Status No Sepsis Action Taken by Nursing No Action Required 12/16/23 13:21 12/16/23 13:22 12/16/23 13:30 Temperature Temperature Source Pulse Rate 66 68 Pulse Rate from SpO2 Sensor 43 L Pulse Rhythm Pulse Strength Respiratory Rate 16 14 Respiratory Effort / Characteristics Short of Breath Respiratory Depth Respiratory Pattern Blood Pressure 160/75 H Blood Pressure Mean 103 Blood Pressure Position Pulse Oximetry 97 94 Oxygen Delivery Method Room Air Sepsis Recent Fever Within 48 Hours Sepsis New/Unexplained Change in Mental Status Sepsis Action Taken by Nursing 12/16/23 14:01 12/16/23 14:12 12/16/23 14:36 Temperature Temperature Source Pulse Rate 64 64 Pulse Rate from SpO2 Sensor 49 L 46 L Pulse Rhythm Pulse Strength Respiratory Rate 15 11 L Respiratory Effort / Characteristics Respiratory Depth Respiratory Pattern Blood Pressure 134/84 154/82 H Blood Pressure Mean 92 106 Blood Pressure Position Pulse Oximetry 95 95 Oxygen Delivery Method Sepsis Recent Fever Within 48 Hours Sepsis New/Unexplained Change in Mental Status Sepsis Action Taken by Nursing 12/16/23 15:09 Temperature Temperature Source Pulse Rate 65 Pulse Rate from SpO2 Sensor 45 L Pulse Rhythm Pulse Strength Respiratory Rate 12 Respiratory Effort / Characteristics Respiratory Depth Respiratory Pattern Blood Pressure 146/92 H Blood Pressure Mean 110 Blood Pressure Position Pulse Oximetry 96 Oxygen Delivery Method Sepsis Recent Fever Within 48 Hours Sepsis New/Unexplained Change in Mental Status Sepsis Action Taken by Nursing Laboratory Data 12/16/23 13:10 12/16/23 13:10 Lab Results 12/16/23 12/16/23 12/16/23 Range/Units 13:10 13:16 15:16 WBC 8.03 (4.8-10.8) K/ul RBC 5.08 (4.70-6.10) M/uL Hgb 16.6 (14.0-18.0) g/dl POC Hgb 17.0 (14.0-18.0) g/dl Hct 48.9 (42.0-52.0) % POC Hct 50 (42-52) % MCV 96.3 (80.0-100.0) fL MCH 32.7 (25.0-34.0) pg MCHC 33.9 (32.0-36.0) g/dL RDW Std Deviation 44.9 (36.4-46.3) fL RDW Coeff of Jourdan 12.5 (11.5-14.5) % Plt Count 179 (130-400) K/uL MPV 11.1 (9.4-12.4) fL Immature Gran % (Auto) 0.4 % Neut % (Auto) 59.6 % Lymph % (Auto) 28.1 % [place] % (Auto) 9.0 % Eos % (Auto) 2.2 % Baso % (Auto) 0.7 % Neut # (Auto) 4.78 (1.40-6.50) K/uL Lymph # (Auto) 2.26 (1.20-3.40) K/uL [place] # (Auto) 0.72 H (0.11-0.59) K/uL Eos # (Auto) 0.18 (0.00-0.50) K/uL Baso # (Auto) 0.06 (0.00-0.20) K/uL Immature Gran # (Auto) 0.03 (0.01-0.20) K/uL PT 10.9 (9.0-12.0) Seconds INR 1.0 (0.9-1.1) POC Sodium 140 (135-144) mmol/L Sodium 140 (136-145) mmol/L POC Potassium 4.3 (3.3-5.0) mmol/L Potassium 4.4 (3.5-5.1) mmol/L POC Chloride 101 (101-112) mmol/L Chloride 103 (98-107) mmol/L Carbon Dioxide 31 (21-32) mmol/L POC Total CO2 26 (24-31) mmol/L Anion Gap 6 (3-11) POC Anion Gap 18.0 (16-25) mmol/L POC BUN 19 H (7-18) mg/dl BUN 18 (6-23) mg/dl Creatinine 1.16 (0.6-1.4) mg/dl POC Creatinine 1.3 (0.6-1.3) mg/dl Est Cr Clr Drug Dosing 70.8 ml/min eGFR 68.61 BUN/Creatinine Ratio 15.5 (10-20) Glucose 124 H (70-99(Fasting)) mg/dl POC Glucose (other) 127 H (70-99) mg/dl Calcium 10.3 (8.6-10.3) mg/dl POC Ioniz Calcium Shane 1.28 (1.12-1.32) mmol/l Magnesium 2.2 (1.7-2.4) mg/dl Total Bilirubin 0.7 (0.2-1.0) mg/dl AST 46 H (13-39) U/L ALT 87 H (7-52) U/L Alkaline Phosphatase 76 (34-104) U/L Troponin I High Sens 3.7 3.9 (0-20) pg/ml Total Protein 8.2 (6.0-8.3) gm/dl Albumin 4.8 (3.4-5.0) gm/dl Globulin 3.4 (2.5-4.0) gm/dl Albumin/Globulin Ratio 1.4 (0.9-2) Lipase 55 (11-82) U/L Administered Medications Discontinued Medications Ioversol (Optiray 320 125ml) 116 ml IV ONCE ONE Stop: 12/16/23 16:03 Last Admin: 12/16/23 16:02 Dose: 116 ml Documented By: EDK Imaging Data Radiologist's Impression: Chest X-Ray 12/16/23 13:09 SINGLE VIEW CHEST CLINICAL HISTORY: Atypical chest pain FINDINGS: An AP, portable, upright chest radiograph is compared to study dated 06/18/2022 and correlated with chest CT dated 06/19/2022. The cardiomediastinal silhouette is unremarkable noting atherosclerotic calcification of the thoracic aorta. Chronic interstitial thickening is similar to previous. There is bibasilar scarring/atelectasis. No airspace consolidation or large pleural effusion is identified. No pneumothorax is seen. The skeletal structures are osteopenic. The bony thorax is grossly intact. IMPRESSION: No acute cardiopulmonary abnormality is identified. ACT 112: Negative or not required by law. Electronically signed by: Carlo Busby M.D. 12/16/2023 1:43 PM Chest CTA 12/16/23 15:29 CT ANGIOGRAPHY OF THE CHEST, PULMONARY EMBOLUS PROTOCOL CLINICAL HISTORY: Chest pain. Evaluate for pulmonary embolus. COMPARISON STUDY: Chest CT June 19, 2022. Chest radiograph performed earlier today. TECHNIQUE: Following IV administration of 116 mL of Optiray, helical axial images of the chest were obtained utilizing the pulmonary embolus protocol. Maximal intensity projections and sagittal and coronal reformats were viewed on an independent 3D workstation. IV contrast was administered without complication. Automated exposure control was utilized for the study. A dose lowering technique was utilized adhering to the principles of ALARA. CT DOSE: 821.95 mGy.cm FINDINGS: No pulmonary emboli are identified. Opacification of the thoracic aorta is suboptimal but no thoracic aortic dissection is identified. Size of the heart is normal. No pericardial effusion. No pneumothorax or pleural effusion is present. A 6 mm right lower lobe nodule on image 67 of 235 remains unchanged. This is benign. Groundglass opacities favor atelectasis. There is no pneumothorax or pleural effusion. Hepatic steatosis is incidentally noted. IMPRESSION: 1. No pulmonary emboli identified. 2. No acute intrathoracic findings. ACT 112: Negative or not required by law. Electronically signed by: Quinten Luna M.D. 12/16/2023 4:33 PM Discharge Plan Visit Data Chief Complaint: Chest Pain Stated Complaint: CHEST PAIN, EAR PAIN ED Provider: Shagufta Lucio Discharge Problem: Chest pain, Heart palpitations Forms Stand Alone Forms: [employer] [facility] [employer] ([place] Prescriptions Prescriptions: No Action diltiazem HCl 240 mg Capsule,Extended Release 24hr 240 mg PO QAM telmisartan 80 mg Tablet 80 mg PO QAM allopurinol 300 mg Tablet 300 mg PO QAM esomeprazole magnesium [Nexium] 20 mg Capsule,Delayed Release(Dr/Ec) 20 mg PO DIRECTED PRN (Reason: Acid Reflux) rosuvastatin 10 mg tablet 10 mg PO PM tramadol 50 mg tablet 50 mg PO BID PRN (Reason: Pain) aspirin 81 mg Tablet,Delayed Release (Dr/Ec) 81 mg PO QAM Qty: 30 0RF omega-3 fatty acids 1,000 mg Capsule 2,000 mg PO DAILY metformin 500 mg tablet 500 mg PO QPM finasteride 5 mg tablet 5 mg PO HS Rx Instructions: HS lorazepam 1 mg tablet 1 mg PO BID PRN (Reason: Anxiety) hydralazine 25 mg tablet 25 mg PO TID amlodipine 5 mg tablet 5 mg PO DAILY Jardiance 25 mg tablet 25 mg PO DAILY omeprazole 20 mg capsule,delayed release(DR/EC) 20 mg PO DAILY Referrals Referrals: Glenna Syed PA-C [Primary Care Provider] -
[2023-12-16] MEDS: OPTIRAY 320 125ml IV ONE (16:02)
--- NOTE | 2023-12-16 16:35 | CT Scan Report ---
CT ANGIOGRAPHY OF THE CHEST, PULMONARY EMBOLUS PROTOCOL CLINICAL HISTORY: Chest pain. Evaluate for pulmonary embolus. COMPARISON STUDY: Chest CT June 19, 2022. Chest radiograph performed earlier today. TECHNIQUE: Following IV administration of 116 mL of Optiray, helical axial images of the chest were o btained utilizing the pulmonary embolus protocol. Maximal intensity projections and sagittal and cor onal reformats were viewed on an independent 3D workstation. IV contrast was administered without co mplication. Automated exposure control was utilized for the study. A dose lowering technique was ut ilized adhering to the principles of ALARA. CT DOSE: 821.95 mGy.cm FINDINGS: No pulmonary emboli are identified. Opacification of the thoracic aorta is suboptimal but no thoracic aortic dissection is identified. Size of the heart is normal. No pericardial effusion. No pneumothorax or pleural effusion is present. A 6 mm right lower lobe nodule on image 67 of 235 remai ns unchanged. This is benign. Groundglass opacities favor atelectasis. There is no pneumothorax or pl eural effusion. Hepatic steatosis is incidentally noted. IMPRESSION: 1. No pulmonary emboli identified. 2. No acute intrathoracic findings. ACT 112: Negative or not required by law. Electronically signed by: Quinten Luna M.D. 12/16/2023 4:33 PM
--- NOTE | 2023-12-16 16:54 | History & Physical Report ---
Date of Service December 16, 2023 Assessment & Plan (1) Heart palpitations: Plan: Has been complaining of palpitation for a while Recent increase in diltiazem doses to 240 in the morning and 120 in the afternoon EKG and troponin remain unremarkable Will get THS and free T4 He has not been taking any more diltiazem He has been taking Toprol-XL 25 mg in the morning and 12 point 5 in the afternoon and will continue that for now (2) Chest pain: Plan: Complained of chest pain on Sunday without any associated symptoms Did have some dizziness while moving around No more chest pain during examination Initial EKG and troponin are unremarkable History of cardiac cath 10 years back Will get echo and serial troponins Cardiology evaluation in the morning (3) BPH (benign prostatic hyperplasia): Plan: Continue current medication (4) Gout: Plan: Continue allopurinol (5) IBS (irritable bowel syndrome): Plan: No acute issue now (6) Hyperlipidemia: Plan: Continue statin (7) HTN (hypertension): Plan: Blood pressure remains stable at 146/92 Plan DVT prophylaxis Subcu heparin CODE STATUS Full review of diabetes as well History of Present Illness Chief Complaint: Palpitation chest pain and shortness of breath Primary Care Provider: Glenna Syed PA-C He is a 68-year-old male with significant past medical history of hypertension, hyperlipidemia, irritable bowel syndrome, BPH and gout apparently has been complaining of gout palpitation which has been going on for some time. He also has recent history of increasing shortness of breath on exertion and has had chest pain last Sunday. He was in the emergency room recently with palpitation and he was advised to take half a pill of diltiazem in the evening for ongoing palpitation and that was advised by Dr. Crane. His symptoms have been persisting and he has been keeping in touch with podiatry and has an appointment sometime in December. He is here with increasing palpitation associated with shortness of breath and chest. His initial EKG and troponins are unremarkable and CTA did not show any pulmonary embolism or any other findings.He was admitted to telemetry unit for continuation of care Allergies Allergy/AdvReac Type Severity Reaction Status Date / Time cefuroxime [From Ceftin] Allergy Unknown CAN'T Verified 06/23/21 17:53 REMEMBER clarithromycin Allergy Unknown CAN'T Verified 06/23/21 17:53 REMEMBER prednisone AdvReac Severe Tachycardia Verified 06/23/21 17:53 Home Medications Medication Instructions Recorded Confirmed Type allopurinol 300 mg tablet 300 mg PO QAM 11/29/17 12/16/23 History diltiazem HCl 240 mg 240 mg PO QAM 11/29/17 12/16/23 History capsule,extended release 24 hr esomeprazole magnesium 20 mg 20 mg PO DIRECTED PRN Acid 11/29/17 12/16/23 History capsule,delayed release (Nexium) Reflux telmisartan 80 mg tablet 80 mg PO QAM 11/29/17 12/16/23 History rosuvastatin 10 mg tablet 10 mg PO PM 01/24/19 12/16/23 History tramadol 50 mg tablet 50 mg PO BID PRN Pain 10/13/20 12/16/23 History aspirin 81 mg tablet,delayed 81 mg PO QAM #30 tabs 10/14/20 12/16/23 Rx release omega-3 fatty acids 1,000 mg 2,000 mg PO DAILY 03/03/21 12/16/23 History capsule finasteride 5 mg tablet 5 mg PO HS 06/23/21 12/16/23 History lorazepam 1 mg tablet 1 mg PO BID PRN Anxiety 06/23/21 12/16/23 History metformin 500 mg tablet 500 mg PO QPM 06/23/21 12/16/23 History amlodipine 5 mg tablet 5 mg PO DAILY 12/16/23 12/16/23 History empagliflozin 25 mg tablet 25 mg PO DAILY 12/16/23 12/16/23 History (Jardiance) hydralazine 25 mg tablet 25 mg PO TID 12/16/23 12/16/23 History omeprazole 20 mg capsule,delayed 20 mg PO DAILY 12/16/23 12/16/23 History release Past Med/Surg History Problem List (Updated 12/16/23 @ 16:36 by Shagufta Lucio MD) Heart palpitations (Acute) Chest pain (Acute) COVID-19 (Acute) BPH (benign prostatic hyperplasia) Gout IBS (irritable bowel syndrome) Hyperlipidemia Nocturia Colon polyps Encounter for pre-operative examination HTN (hypertension) (Chronic) Eye pain (Acute) Chest pain (Acute) Chest pain, unspecified (Acute) Corneal abrasion (Acute) Fever (Acute) Infection of shoulder (Acute 02/13/14) Medical History BPH (benign prostatic hyperplasia) Former smoker Gout Hyperlipidemia Hypertension IBS (irritable bowel syndrome) Surgical History History of cardiac cath 10-15 YRS AGO NO STENTS History of colonoscopy X 2-3 History of esophagogastroduodenoscopy (EGD) History of herniorrhaphy History of repair of rotator cuff R/L Family History Father Family history of diabetes mellitus Family/Other Family history of diabetes mellitus Mother Coronary heart disease fatal [place] age 78 Social History Smoking Status: Never smoker Tobacco Type: Smokeless Tobacco (Dip or Chew) Second Hand Exposure: No; Do You Dip or Chew Tobacco: Yes (ON OCCASION); Hx Alcohol Use: Yes Alcohol type: beer Hx Substance Use: No Preferred Language: Swedish Communication Ability: Effective Clam Grader Required: No Beliefs That Will Affect Care: None Current Living Situation: Spouse Feels Safe at Home: Yes Assistive Devices: None Review of Systems Review of Systems: All systems reviewed and are unremarkable except as noted below Physical Exam Physical Exam: Lying in bed without any acute distress but remains very anxious Constitutional: well developed, well nourished and + ill appearing Eyes: PERRL, conjunctivae normal, anicteric sclerae ENMT: external ear and nose normal, oropharynx normal Neck: trachea midline, no thyromegaly Respiratory: no respiratory distress Auscultation: lungs clear to auscultation bilaterally Cardiovascular: Rate/Rhythm: regular rate and regular rhythm; not tachycardic Heart Sounds: normal S1 and normal S2; no murmur Extremities: + edema (Trace edema bilaterally more on the left side) Gastrointestinal (Abdomen): Inspection/Auscultation: normal bowel sounds; abdomen not distended Percussion/Palpation: abdomen soft; abdomen nontender Musculoskeletal: No acute arthritis involving any of the joint Neurologic: normal touch/pain/proprioception and moves all extremities; no focal motor deficits Psychiatric: A+Ox3, euthymic affect Lymphatic: no cervical or axillary lymphadenopathy Results & Data Results & Data Vital Signs (Past 12 Hours) Vital Signs Temp Pulse Resp BP Pulse Ox O2 Del Method 10/27/24 15:09 65 12 146/92 H 96 12/16/23 14:36 64 11 L 154/82 H 95 12/16/23 14:12 64 15 95 12/16/23 14:01 134/84 12/16/23 13:30 68 14 160/75 H 94 12/16/23 13:21 66 16 97 Room Air 12/16/23 13:18 Room Air 12/16/23 13:17 66 12/16/23 13:03 36.0 C L 41 L 18 146/79 H 93 Room Air Laboratory Results Short CBC 12/16/23 Range/Units 13:10 WBC 8.03 (4.8-10.8) K/ul Hgb 16.6 (14.0-18.0) g/dl Hct 48.9 (42.0-52.0) % Plt Count 179 (130-400) K/uL BMP 12/16/23 13:10 Sodium 140 Potassium 4.4 Chloride 103 Carbon Dioxide 31 BUN 18 Creatinine 1.16 Glucose 124 H Calcium 10.3 Liver Function 12/16/23 Range/Units 13:10 Total Bilirubin 0.7 (0.2-1.0) mg/dl AST 46 H (13-39) U/L ALT 87 H (7-52) U/L Alkaline Phosphatase 76 (34-104) U/L Albumin 4.8 (3.4-5.0) gm/dl Medications Administered Current Inpatient Medications Heparin Sodium (Porcine) (Heparin Sod 5,000 Unit/0.5 Ml Vial) 5,000 units SQ Q12 DWIGHT Stop: 01/15/24 20:59 Code Status & VTE Plan VTE Prophylaxis Plan VTE Prophylaxis will be ordered: Yes
[2023-12-16 17:49] VITALS: RESP 18
[2023-12-16] MEDS ORDERED: traMADol HCL 50 MG TABLET PO PRN (18:24)
[2023-12-16] MEDS: HEPARIN SOD 5,000 UNIT/0.5 ML VIAL SQ SCH (20:51)
[2023-12-16] MEDS: FINASTERIDE 5 MG TAB PO SCH (20:51)
[2023-12-16] MEDS: METOPROLOL SUCC 25MG EXT REL TAB PO SCH (20:52)
[2023-12-16] MEDS: ROSUVASTATIN CALCIUM 10 MG TAB PO SCH (20:54)
[2023-12-16] MEDS: hydrALAZINE HCL 25 MG TAB PO SCH (20:54)
[2023-12-16] MEDS: LORazepam 1 MG TAB PO PRN (22:26)
[2023-12-17 06:43] LABS: Basophils # (auto) 0.05 K/uL (0.00-0.20); Basophils % (auto) 0.8 %; Hematocrit (blood only) 44.6 % (42.0-52.0); Hemoglobin 15.5 g/dl (14.0-18.0); Immature Granulocytes # (auto) 0.03 K/uL (0.01-0.20); Immature Granulocytes % (auto) 0.5 %; Lymphocytes # (auto) 1.67 K/uL (1.20-3.40); Lymphocytes % (auto) 25.3 %; Mean Corpuscular Hemoglobin 32.8 pg (25.0-34.0); Mean Corpuscular Hgb Conc 34.8 g/dL (32.0-36.0); Mean Corpuscular Volume 94.3 fL (80.0-100.0); Mean Platelet Volume 11.3 fL (9.4-12.4); Monocytes # (auto) 0.64 K/uL (0.11-0.59); Monocytes % (auto) 9.7 %; Neutrophils # (auto) 4.02 K/uL (1.40-6.50); Neutrophils % (auto) 60.7 %; Platelet Count 168 K/uL (130-400); RDW Coefficient of Variation 12.6 % (11.5-14.5); RDW Standard Deviation 43.8 fL (36.4-46.3); Red Blood Count 4.73 M/uL (4.70-6.10); White Blood Count 6.61 K/ul (4.8-10.8)
[2023-12-17 07:12] LABS: BUN Creatinine Ratio 17.2 (10-20); Calcium 9.8 mg/dl (8.6-10.3); Creatinine Clr Calc Pharmacy 64.2 ml/min; Magnesium 2.2 mg/dl (1.7-2.4); Potassium 4.6 mmol/L (3.5-5.1)
[2023-12-17 07:19] LABS: Troponin I High Sensitivity 3.9 pg/ml (0-20)
[2023-12-17 07:28] LABS: Thyroid Stimulating Hormone 1.526 uIu/ml (0.300-4.500)
[2023-12-17 07:57] VITALS: BP 136/92; PULSE 52; TEMP 97.9; O2SAT 95
--- NOTE | 2023-12-17 08:24 | Cardiology Consultation ---
Date of Consultation December 17, 2023 Assessment & Plan (1) Heart palpitations: (2) PVC (premature ventricular contraction): (3) Chest pain: (4) HTN (hypertension): Plan Patient with several months of worsening palpitations, SOB and intermittent chest pain. Palpitations correlating with PVC's on telemetry on admission. Patient was started on metoprolol succinate 12.5 this summer after ZIO monitor revealed non sustained SVT, rare PVC's. Increased to 12.5 mg BID due to s ubjective complaints of palpitations earlier this month without improvement. Intermittent CP also reported and SOB (at rest and with exertion) EKG demonstrating NSR with ventricular bigeminy on arrival. Inferior T wave inversions which has been present for many years intermittently, also the reason for prior cath in 2020 with intermittent chest pain demonstrating only mild non obstructive CAD with 10% stenosis in the LAD an 20% ostial RCA stenosis. HS troponin negative x4 since admission Labs including electrolytes, TSH are within normal limits. Patient is NPO. Recommend proceeding with exercise stress echo to evaluate and r/o inducible ischemia and evaluate ectopy with exercise It's possible the metoprolol succinate is contributing to his worsening PVC's as his ZIO this summer showed rare ectopy < 1% (prior to metoprolol initiation), now more frequent with metoprolol succinate 12.5 mg BID. he was previously on diltiazem in 2022 for antihypertensive. Its possible medication was suppressing PVC's. Pending results of exercise stress echo, consider stopping metoprolol and amlodipine and resumption of diltiazem or possibly verapamil. Could increase hydralazine dose if needed for HTN Case discussed with Dr. Crane I spent a total of 60 minutes on the date of service in preparation, delivery, and documentation of the care provided to this patient, excluding any time spent in the performance of separately billed services. Abbie Martinez PA-C Department of Cardiology, [facility] This chart was completed in part utilizing Speech Voice Recognition Software. Grammatical errors, random word insertions, pronoun errors, and incomplete sentences are an occasional consequence of this system due to software limitations, ambient noise, and hardware issues. Any formal questions or concerns about the content, text, or information contained within the body of this dictation should be directly addressed to the provider for clarification. Supervising Physician Co-Signing Physician Notes Attending attestation: Case reviewed with the advanced practitioner. I have personally performed a history and physical examination on the patient. I have reviewed the advanced practitioner's documentation on the date of service referenced in note, and I agree with, and take responsibility for the plan of care. Subjective: Patient seen prior to, during, after exercise stress echocardiogram. Feeling well at the time of test. Patient exercised into a third stage of the Jorge protocol with no evidence of inducible ischemia. Exam: Regular rhythm with occasional ectopic beats Data: Resting echocardiogram reveals normal left ventricular systolic function, LVEF in the range of 60 to 65%, mild aortic valve sclerosis without stenosis, grade 1 diastolic dysfunction Patient exercised into the third stage of a Jorge protocol on stress echocardiogram. The frequency of the premature ventricular contractions decreased with progressive exercise. There was no echocardiographic or EKG evidence of inducible ischemia. Impression/ Plan: Patient with complaints of dyspnea on exertion, occasional chest discomfort that is atypical in character for angina, and subjective palpitations Patient noted to have frequent premature ventricular contractions including ventricular bigeminy on presentation last night. Electrolytes within normal limits. High sensitive troponin negative x 4 measurements. -Per review of outpatient chart, diltiazem CD 240 mg daily was discontinued in May, and at that time the patient was transition to amlodipine with hopes that that would help achieve better blood pressure control. The blood pressure has trended toward improvement. The patient however complained of subjective palpitations prompting a Zio patch which was placed in August,. Predominant rhythm was sinus rhythm with average rate of 70 bpm. First-degree AV block noted on monitor as well as 130 relatively brief episodes of supraventricular tachycardia the longest of which was 14 beats in duration. Premature ventricular contractions were rare, accounting for less than 1% of the total QRS complexes. No subjective symptoms were reported at that time. After the Zio patch, metoprolol initiated however the patient subsequently stopped it. Was reinitiated at a dose of 12.5 mg twice daily. --At present I recommend discontinuing metoprolol altogether. -- Discontinue amlodipine 5 mg daily -- Start previous treatment with diltiazem CD at a dose of 120 mg daily starting tomorrow as compared to 240 mg daily. Will arrange outpatient follow-up. I spent a total of 30 minutes coordinating, documenting, and providing care for this patient excluding time spent in the performance of separately billed services or time spent by another provider. Kayode Crane, History of Present Illness Reason for Consultation: Chest pain; Palpitations Requesting Physician: Devorah Hospitalist Attending Physician: Dr. Crane History of Present Illness Patient is a 68 year old male who presents to [facility] with complaints of palpitations and chest pain this past weekend. Known to [facility] Cardiology History includes: 1. Mild Nonobstructive CAD (10% mid LAD stenosis and 20% ostial RCA taper) per cardiac catheterization 10/14/2020 2. Hypertension a. Electrolyte imbalance with spironolactone and also HCTZ b. Personal intolerance to doxazosin-- fatigue c. Ankle edema on higher doses of Norvasc (10 mg) 3. Dyslipidemia 4. Abnormal LFTs secondary to fatty liver disease 5. PVC's Patient reports worsening palpitations, SOB, and intermittent chest pain since around August 2023. He saw PA in cardio for symptoms. ZIO was obtained, wearing it for 8 days, demonstrating NSR with average HR of 70 bmp. 8 runs of non sustained SVT with the longest lasting 14 beats. Rare atrial and ventricular ectopy noted (< 1% burden). no symptoms during monitor. He also had echo in August 2023 which revealed normal LVEF at 60-64% normal wall motion, no significant valvular disease. Due to ongoing symptoms of palpitations, he was started on low dose metoprolol 12.5 mg daily. He was previously on diltiazem, but this was discontinued in 2022 in favor of amlodipine for HTN. Patient recently contacted the office with worsening palpitations. Metoprolol was increased to 12.5 mg BID. Patient reports the addition of metoprolol in August and increase in metoprolol in November failed to improve his symptoms. He also feels, metoprolol possibly made his palpitations worse. Patient reports intermittent chest pain, described as a heaviness across his chest. 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 Heaviness resolved when he [facility]urne [facility]. Over the weekend patient reported ongoing palpitations described as "hard hard beats" associated with SOB. He notes SOB with minimal activity. Due to all these symptoms and patient not feeling well, he came to the ER for evaluation. He admits to drinking several cups of coffee per day (1/2 caffeine/1/2 decaf). He uses chewing tobacco. At time of consult, patient sitting up in chair. He reports he was SOB trying to lay in bed last night. Almo the ongoing palpitations that were bothersome. No chest pain since admission. Ongoing PVC's noted on telemetry, more frequent last evening, improving overnight. Not as frequent this morning. Since admission HS troponin negative x4. Normal electrolytes including potassium and magnesium. Normal TSH. Allergies Allergy/AdvReac Type Severity Reaction Status Date / Time cefuroxime [From Ceftin] Allergy Unknown CAN'T Verified 06/23/21 17:53 REMEMBER clarithromycin Allergy Unknown CAN'T Verified 06/23/21 17:53 REMEMBER prednisone AdvReac Severe Tachycardia Verified 06/23/21 17:53 Home Medications Medication Instructions Recorded Confirmed Type allopurinol 300 mg tablet 300 mg PO QAM 11/29/17 12/16/23 History diltiazem HCl 240 mg 240 mg PO QAM 11/29/17 12/16/23 History capsule,extended release 24 hr esomeprazole magnesium 20 mg 20 mg PO DIRECTED PRN Acid 11/29/17 12/16/23 History capsule,delayed release (Nexium) Reflux telmisartan 80 mg tablet 80 mg PO QAM 11/29/17 12/16/23 History rosuvastatin 10 mg tablet 10 mg PO PM 01/24/19 12/16/23 History tramadol 50 mg tablet 50 mg PO BID PRN Pain 10/13/20 12/16/23 History aspirin 81 mg tablet,delayed 81 mg PO QAM #30 tabs 10/14/20 12/16/23 Rx release omega-3 fatty acids 1,000 mg 2,000 mg PO DAILY 03/03/21 12/16/23 History capsule finasteride 5 mg tablet 5 mg PO HS 06/23/21 12/16/23 History lorazepam 1 mg tablet 1 mg PO BID PRN Anxiety 06/23/21 12/16/23 History metformin 500 mg tablet 500 mg PO QPM 06/23/21 12/16/23 History amlodipine 5 mg tablet 5 mg PO DAILY 12/16/23 12/16/23 History empagliflozin 25 mg tablet 25 mg PO DAILY 12/16/23 12/16/23 History (Jardiance) hydralazine 25 mg tablet 25 mg PO TID 12/16/23 12/16/23 History omeprazole 20 mg capsule,delayed 20 mg PO DAILY 12/16/23 12/16/23 History release Patient History Medical History BPH (benign prostatic hyperplasia) Former smoker Gout Hyperlipidemia Hypertension IBS (irritable bowel syndrome) Surgical History History of cardiac cath 10-15 YRS AGO NO STENTS History of colonoscopy X 2-3 History of esophagogastroduodenoscopy (EGD) History of herniorrhaphy History of repair of rotator cuff R/L Family History Father Family history of diabetes mellitus Family/Other Family history of diabetes mellitus Mother Coronary heart disease fatal [place] age 78 Social History Smoking Status: Never smoker Tobacco Type: Smokeless Tobacco (Dip or Chew) Second Hand Exposure: No; Do You Dip or Chew Tobacco: Yes (ON OCCASION); Hx Alcohol Use: Yes Alcohol type: beer Hx Substance Use: No Preferred Language: Divehi Communication Ability: Effective Web Site Developer Required: No Beliefs That Will Affect Care: None Current Living Situation: Spouse Other Information That Helps Us Care for You: No Feels Safe at Home: Yes Assistive Devices: None Review of Systems Review of Systems: All systems reviewed & are unremarkable except as noted in HPI & below Physical Exam Constitutional: WD/WN, vitals as above well developed and average body habitus; no acute distress Neck: trachea midline, no thyromegaly normal visual inspection Respiratory: normal respiratory effort; no labored breathing Auscultation: lungs clear to auscultation bilaterally; no rales, no rhonchi and no wheezes Cardiovascular: Rate/Rhythm: regular rate and regular rhythm (Occ ectopy) Heart Sounds: normal S1 and normal S2; no murmur Vessels: no JVD Extremities: no edema Gastrointestinal (Abdomen): normal bowel sounds, soft, nontender, no hepatosplenomegaly Neurologic: PERRL, EOMI, accommodation nl, no face palsy, no dysarthria Results & Data Vital Signs (Past 12 Hours) Vital Signs Temp Pulse Pulse Resp BP Pulse Ox O2 Del Method 12/17/23 07:56 36.6 C 52 L 18 136/92 95 Room Air 12/17/23 03:02 36.5 C 61 18 108/60 93 Room Air 12/16/23 23:00 65 12/16/23 22:33 36.5 C 63 18 105/67 94 Room Air 12/16/23 20:50 64 Laboratory Results Cardiac Enzymes 12/16/23 12/16/23 12/16/23 Range/Units 13:10 15:16 21:09 AST 46 H (13-39) U/L Troponin I High Sens 3.7 3.9 4.5 (0-20) pg/ml 12/17/23 Range/Units 06:09 AST (13-39) U/L Troponin I High Sens 3.9 (0-20) pg/ml Coagulation 12/16/23 Range/Units 13:10 PT 10.9 (9.0-12.0) Seconds CBC 12/16/23 12/17/23 Range/Units 13:10 06:09 WBC 8.03 6.61 (4.8-10.8) K/ul RBC 5.08 4.73 (4.70-6.10) M/uL Hgb 16.6 15.5 (14.0-18.0) g/dl Hct 48.9 44.6 (42.0-52.0) % Plt Count 179 168 (130-400) K/uL Neut # (Auto) 4.78 4.02 (1.40-6.50) K/uL Lymph # (Auto) 2.26 1.67 (1.20-3.40) K/uL Dane # (Auto) 0.72 H 0.64 H (0.11-0.59) K/uL Eos # (Auto) 0.18 0.20 (0.00-0.50) K/uL Baso # (Auto) 0.06 0.05 (0.00-0.20) K/uL Comprehensive Metabolic Panel 12/16/23 12/17/23 Range/Units 13:10 06:09 Sodium 140 140 (136-145) mmol/L Potassium 4.4 4.6 (3.5-5.1) mmol/L Chloride 103 104 (98-107) mmol/L Carbon Dioxide 31 30 (21-32) mmol/L BUN 18 22 (6-23) mg/dl Creatinine 1.16 1.28 (0.6-1.4) mg/dl Glucose 124 H 139 H (70-99(Fasting)) mg/dl Calcium 10.3 9.8 (8.6-10.3) mg/dl AST 46 H (13-39) U/L ALT 87 H (7-52) U/L Alkaline Phosphatase 76 (34-104) U/L Total Protein 8.2 (6.0-8.3) gm/dl Albumin 4.8 (3.4-5.0) gm/dl Intake and Output 12/16/23 12/17/23 12/17/23 22:59 06:59 14:59 Intake Total 100 / 220 120 / 220 Balance 100 / 220 120 / 220 Intake: Oral 100 / 220 120 / 220 Other: Weight 92.5 kg Weight Measurement Method Chair Scale Diagnostic Findings Telemetry reviewed: NSR with occ PVC's. PVC"s were more frequent yesterday afternoon/last evening. Resolved overnight. PVC's less frequent this morning. EKG reviewed from admission dated 12/16/23 at 13:08 NSR with ventricular bigeminy T wave abnormality in inferior leads. He had T wave inversions in inferior leads on multiple EKG's in the past, ultimately leading to cardiac cath in 2020 Chest X-Ray 12/16/23 13:09 SINGLE VIEW CHEST CLINICAL HISTORY: Atypical chest pain FINDINGS: An AP, portable, upright chest radiograph is compared to study dated 06/18/2022 and correlated with chest CT dated 06/19/2022. The cardiomediastinal silhouette is unremarkable noting atherosclerotic calcification of the thoracic aorta. Chronic interstitial thickening is similar to previous. There is bibasilar scarring/atelectasis. No airspace consolidation or large pleural effusion is identified. No pneumothorax is seen. The skeletal structures are osteopenic. The bony thorax is grossly intact. IMPRESSION: No acute cardiopulmonary abnormality is identified. ACT 112: Negative or not required by law. Electronically signed by: Carlo Busby M.D. 12/16/2023 1:43 PM Chest CTA 12/16/23 15:29 CT ANGIOGRAPHY OF THE CHEST, PULMONARY EMBOLUS PROTOCOL CLINICAL HISTORY: Chest pain. Evaluate for pulmonary embolus. COMPARISON STUDY: Chest CT June 19, 2022. Chest radiograph performed earlier today. TECHNIQUE: Following IV administration of 116 mL of Optiray, helical axial images of the chest were obtained utilizing the pulmonary embolus protocol. Maximal intensity projections and sagittal and coronal reformats were viewed on an independent 3D workstation. IV contrast was administered without complication. Automated exposure control was utilized for the study. A dose lowering technique was utilized adhering to the principles of ALARA. CT DOSE: 821.95 mGy.cm FINDINGS: No pulmonary emboli are identified. Opacification of the thoracic aorta is suboptimal but no thoracic aortic dissection is identified. Size of the heart is normal. No pericardial effusion. No pneumothorax or pleural effusion is present. A 6 mm right lower lobe nodule on image 67 of 235 remains unchanged. This is benign. Groundglass opacities favor atelectasis. There is no pneumothorax or pleural effusion. Hepatic steatosis is incidentally noted. IMPRESSION: 1. No pulmonary emboli identified. 2. No acute intrathoracic findings. ACT 112: Negative or not required by law Electronically signed by: Quinten Luna M.D. 12/16/2023 4:33 PM Outside data reviewed: Echo from August 2023: Interpretation Summary The examination is adequate to evaluate the referral indication. The qualitative LV ejection fraction is 60-64% (normal). The LV wall thickness is normal. The left ventricular wall motion is normal. The right ventricular systolic function is normal as assessed by tricuspid annular plane systolic excursion (TAPSE) (normal >1.7 cm). The left atrium is normal sized. The right atrial size is normal. Mild tricuspid regurgitation is present. ZIO report reviewed from August 2023: Duration: 8 days, 23 hours Fiinal Interpretation Patient had a min HR of 50 bpm, max HR of 167 bpm, and avg HR of 70 bpm. Predominant underlying rhythm was Sinus Rhythm. First Degree AV Block was present. Bundle Branch Block/IVCD was present. 8 Supraventricular Tachycardia runs occurred, the run with the fastest interval lasting 4 beats with a max rate of 167 bpm, the longest lasting 14 beats with an avg rate of 130 bpm. Some episodes of Supraventricular Tachycardia may be possible Atrial Tachycardia with variable block. Isolated SVEs were rare (<1.0%), SVE Couplets were rare (<1.0%), and SVE Triplets were rare (<1.0%). Isolated VEs were rare (<1.0%, 193), VE Couplets were rare (<1.0%, 1), and VE Triplets were rare (<1.0%, 1). Ventricular Bigeminy was present. No patient triggered events were submitted. No symptoms were reported. Prior cardiac cath report reviewed from September 2020: Coronary Anatomy Dominant: Right Left Main (% Stenosis): Normal LAD (% Stenosis): Mid (10%) D1 (% Stenosis): Normal Circumflex (% Stenosis): Normal OM1 (% Stenosis): Normal (1mm vessel) OM2 (% Stenosis): Normal L PL1 (% Stenosis): Normal L PL2 (% Stenosis): Normal RCA (% Stenosis): Ostial (20% taper) R PDA (% Stenosis): Normal R PL1 (% Stenosis): Normal Ramus (% Stenosis): Normal (3) Chest pain Chest pain type: unspecified Qualified Code(s): R07.9 - Chest pain, unspecified
[2023-12-17] MEDS: METOPROLOL SUCC 25MG EXT REL TAB PO SCH (08:42)
[2023-12-17] MEDS: PANTOprazole 40 MG TAB PO SCH (08:42)
[2023-12-17] MEDS: ASPIRIN 81 MG ECTAB PO SCH (08:42)
[2023-12-17] MEDS: LOSARTAN POTASSIUM 50 MG TAB PO SCH (08:43)
[2023-12-17] MEDS: OMEGA-3 (PURIFIED FISH OIL) 1 GM CAP PO SCH (08:43)
[2023-12-17] MEDS: amLODIPine BESYLATE 5 MG TAB PO SCH (08:44)
[2023-12-17] MEDS: allopurinoL 300 MG TAB PO SCH (08:44)
--- NOTE | 2023-12-17 11:46 | Hospitalist Progress Note ---
Date of Service December 17, 2023 Assessment & Plan (1) Heart palpitations: (2) Chest pain: Plan: Patient presented with exertional chest pain and palpitation for several days EKG personally reviewed; sinus rhythm with frequent PVCs High sensitive troponin negative Patient had left heart cath in 2020 which showed mild nonobstructive CAD with 10% stenosis in the LAD and 20% ostial RCA stenosis Cardiology consulted; plan for exercise stress test Continue monitor on telemetry Possible plan to switch over from metoprolol to Cardizem as per cardiology for frequent PVCs (3) BPH (benign prostatic hyperplasia): Plan: Continue current medication (4) Gout: Plan: Continue allopurinol (5) IBS (irritable bowel syndrome): Plan: No acute issue now (6) Hyperlipidemia: Plan: Continue statin (7) HTN (hypertension): Plan: Continue home meds Plan DVT prophylaxis Subcu heparin CODE STATUS Full Please note the above document was generated using voice recognition software. It may contain grammatical, syntax or spelling errors. Any formal questions or concerns about the content, text or information contained within the body of this dictation should be directly addressed to the provider for clarification Admission and Anticipated Discharge Date Admission Date: December 16, 2023 Subjective Seen and examined at bedside He is sitting comfortably on a chair; not in distress He denies chest pain at rest; reports that he has a history of chest pain on exertion prior to presentation No significant events overnight Review of Systems Review of Systems: All systems reviewed & are unremarkable except as noted in Subjective Physical Exam Physical Exam: Constitutional: Alert oriented x 3; not in distress. Respiratory: normal respiratory effort, lungs clear to auscultation, no wheeze, rales, rhonchi. Normal insp/exp effort, no accessory muscle use Cardiovascular: RRR, no murmur, no edema Vessels: no JVD or carotid bruit Chest: normal inspection of chest Abdomen: normal bowel sounds, soft, nontender, no hepatosplenomegaly Musculoskeletal: no cyanosis or clubbing, extremities motor strength 5/5 Skin: no rashes, warm and dry normal turgor Neurologic: PERRL, EOMI, accommodation nl, no face palsy, no dysarthria CN's II- XI intact bilaterally and moves all extremities Psychiatric: A+Ox3, euthymic affect Results & Data Results & Data Vital Signs (Past 12 Hours) Vital Signs Temp Pulse Resp BP Pulse Ox O2 Del Method 12/17/23 07:56 36.6 C 52 L 18 136/92 95 Room Air 12/17/23 03:02 36.5 C 61 18 108/60 93 Room Air (2) Chest pain Chest pain type: unspecified Qualified Code(s): R07.9 - Chest pain, unspecified
--- NOTE | 2023-12-17 12:42 | Electrocardiogram Report ---
Test Reason : Blood Pressure : */* mmHG Vent. Rate : 72 BPM Atrial Rate : 72 BPM P-R Int : 192 ms QRS Dur : 96 ms QT Int : 388 ms P-R-T Axes : 45 66 -8 degrees QTcB Int : 424 ms Sinus rhythm with frequent Premature ventricular complexes in a pattern of bigeminy T wave abnormality, consider inferior ischemia Incomplete right bundle branch block Abnormal ECG When compared with ECG of 18-Jun-2022 20:41, Premature ventricular complexes are now Present Confirmed by Justin Alvarez ([id number]) on 12/17/2023 12:42:04 PM Referred By: REFERRED SELF Confirmed By: Justin Alvarez
--- NOTE | 2023-12-17 14:26 | Discharge Summary ---
Date of Service December 17, 2023 Admission HPI Per Admitting Provider He is a 68-year-old male with significant past medical history of hypertension, hyperlipidemia, irritable bowel syndrome, BPH and gout apparently has been complaining of gout palpitation which has been going on for some time. He also has recent history of increasing shortness of breath on exertion and has had chest pain last Sunday. He was in the emergency room recently with palpitation and he was advised to take half a pill of diltiazem in the evening for ongoing palpitation and that was advised by Dr. Crane. His symptoms have been persisting and he has been keeping in touch with podiatry and has an appointment sometime in December. He is here with increasing palpitation associated with shortness of breath and chest. His initial EKG and troponins are unremarkable and CTA did not show any pulmonary embolism or any other findings.He was admitted to telemetry unit for continuation of care Admission Exam Per Admitting Provider Physical Exam: Lying in bed without any acute distress but remains very anxious Constitutional: well developed, well nourished and + ill appearing Eyes: PERRL, conjunctivae normal, anicteric sclerae ENMT: external ear and nose normal, oropharynx normal Neck: trachea midline, no thyromegaly Respiratory: no respiratory distress Auscultation: lungs clear to auscultation bilaterally Cardiovascular: Rate/Rhythm: regular rate and regular rhythm; not tachycardic Heart Sounds: normal S1 and normal S2; no murmur Extremities: + edema (Trace edema bilaterally more on the left side) Gastrointestinal (Abdomen): Inspection/Auscultation: normal bowel sounds; abdomen not distended Percussion/Palpation: abdomen soft; abdomen nontender Musculoskeletal: No acute arthritis involving any of the joint Neurologic: normal touch/pain/proprioception and moves all extremities; no focal motor deficits Psychiatric: A+Ox3, euthymic affect Lymphatic: no cervical or axillary lymphadenopathy Principal Diagnosis Chest pain, ACS ruled out Palpitations Frequent PVC Discharge Exam Constitutional: Alert oriented x 3; not in distress. Respiratory: normal respiratory effort, lungs clear to auscultation, no wheeze, rales, rhonchi. Normal insp/exp effort, no accessory muscle use Cardiovascular: RRR, no murmur, no edema Vessels: no JVD or carotid bruit Chest: normal inspection of chest Abdomen: normal bowel sounds, soft, nontender, no hepatosplenomegaly Musculoskeletal: no cyanosis or clubbing, extremities motor strength 5/5 Skin: no rashes, warm and dry normal turgor Neurologic: PERRL, EOMI, accommodation nl, no face palsy, no dysarthria CN's II- XI intact bilaterally and moves all extremities Psychiatric: A+Ox3, euthymic affect Discharge Data Allergies Allergy/AdvReac Type Severity Reaction Status Date / Time cefuroxime [From Ceftin] Allergy Unknown CAN'T Verified 06/23/21 17:53 REMEMBER clarithromycin Allergy Unknown CAN'T Verified 06/23/21 17:53 REMEMBER prednisone AdvReac Severe Tachycardia Verified 06/23/21 17:53 Consultations 12/16/23 15:44 ED Decision to Admit Stat 12/17/23 07:18 Consult Cardiology Routine Ordered Studies 12/16/23 15:29 CT for pulmonary embolism PE [CT angio chest PE protocol] Stat Hospital Course (1) Heart palpitations: (2) Chest pain: (3) BPH (benign prostatic hyperplasia): (4) Gout: (5) IBS (irritable bowel syndrome): (6) Hyperlipidemia: (7) HTN (hypertension): Plan Patient presented with exertional chest pain and palpitation for several days EKG personally reviewed; sinus rhythm with frequent PVCs High sensitive troponin negative Patient had left heart cath in 2020 which showed mild nonobstructive CAD with 10% stenosis in the LAD and 20% ostial RCA stenosis Cardiology was consulted; patient underwent stress echocardiogram; no symptoms suggestive of angina. Patient was noted to have frequent PVC, bigeminy likely contributing to palpitation. Amlodipine was discontinued and diltiazem 120 mg started. Patient to follow-up with PCP and cardiology as outpatient. Please note the above document was generated using voice recognition software. It may contain grammatical, syntax or spelling errors. Any formal questions or concerns about the content, text or information contained within the body of this dictation should be directly addressed to the provider for clarification Total Time Total Time Spent Total Time Spent (In Minutes): 35 Total Time Includes: Examination of the Patient, Discharge Planning, Medication Reconciliation, Communication With Other Providers and Other Discharge Plan Discharge Items Patient Disposition: Home - Self-Care Reason For Visit: CHEST PAIN,PALPITATION, Discharge Diagnosis: Chest pain, ACS rule out Frequent PVC Activity: Resume your previous activity Non-emergency contact: Primary Care Provider Call non-emergency contact if: you have any medication questions and your symptoms worsen Follow-up/Referrals: Glenna Syed PA-C [Primary Care Provider] - Diet: Regular Addtl Attending Provider Instructions: You were admitted to the hospital due to chest pain. You underwent a stress test by cardiology which was normal. Cardiology recommended that he stop taking amlodipine. You are prescribed diltiazem 120 mg once a day. Please restart it from tomorrow. Follow-up with her PCP as scheduled and cardiology as well. Pending Studies at Discharge: No Stand-Alone Forms: My [facility] [employer], Smoking Cessation Medications and DC Order Prescriptions: New diltiazem HCl [Cardizem CD] 120 mg Capsule,Extended Release 24hr 120 mg PO QAM Qty: 30 0RF Continued telmisartan 80 mg Tablet 80 mg PO QAM allopurinol 300 mg Tablet 300 mg PO QAM esomeprazole magnesium [Nexium] 20 mg Capsule,Delayed Release(Dr/Ec) 20 mg PO DIRECTED PRN (Reason: Acid Reflux) rosuvastatin 10 mg tablet 10 mg PO PM tramadol 50 mg tablet 50 mg PO BID PRN (Reason: Pain) aspirin 81 mg Tablet,Delayed Release (Dr/Ec) 81 mg PO QAM Qty: 30 0RF omega-3 fatty acids 1,000 mg Capsule 2,000 mg PO DAILY metformin 500 mg tablet 500 mg PO QPM finasteride 5 mg tablet 5 mg PO HS Rx Instructions: HS lorazepam 1 mg tablet 1 mg PO BID PRN (Reason: Anxiety) hydralazine 25 mg tablet 25 mg PO TID Jardiance 25 mg tablet 25 mg PO DAILY omeprazole 20 mg capsule,delayed release(DR/EC) 20 mg PO DAILY Discontinued amlodipine 5 mg tablet 5 mg PO DAILY Discharge Orders: Discharge Order (Routine); Ordered 12/17/23 Ordered By: Tanner Luis Admission Data Admit Date/Time: 12/16/23 16:38 Attending Provider: Tanner Luis Admit Provider: Tri Alarcon Primary Care Provider: Glenna Syed Other Providers: Tri Alarcon; Andrés Abdalla; Maria Elena Black; Kayode Crane; Pebbles Santana; Wally Stout; rTish Mckinnon; Marychuy Partida; Pebbles Sweeney; Tank Rachel; Dru Espinal; Claudy Montana; Florentin Zarate; Amrik Kee; Hilaria Alcantar; Agnes Barbosa; Abbie Martinez; Antonia Landon; Gio Cuadra; Karen Gotti
[2023-12-18] MEDS ORDERED: dilTIAZem HCL 120 MG CAPCR PO SCH (09:00)
== END 2023-12-17 16:10 | disposition home or self-care (01) | DRG 310 ==
LOC: ED 13:00 → INTOOBSV 16:38 → 2S 16:38 → SUATTDRO 16:38 → 2S 18:29